=== PATIENT | female | born 1950 | race Caucasian/White ===

== ENCOUNTER 2020-05-05 14:39 | Outpatient (RCR) | payer MEDICARE, SELFPAY | END 2020-08-03 23:59 | disposition home or self-care (01) | LOC: ANHLAB 14:39 | PROVIDERS: PCP Family Medicine; Visit Provider Nurse Practitioner | DX: Z46.1 Encounter for fitting and adjustment of hearing aid (principal) | CPT/HCPCS: 99199 ==

== ENCOUNTER 2020-05-31 15:54 | Emergency (ER) | payer MEDICARE, SELFPAY ==
--- NOTE | ~2020-05-31 | XR_ITS ---
EXAMINATION: XR foot LT min 3V, XR ankle LT min 3V EXAM DATE: 05/31/2020 19:46 INDICATION: Initial encounter following injury, with pain of the left foot, ankle. TECHNIQUE: Left foot dorsoplantar, lateral and oblique projections obtained and reviewed. Left ankle frontal, lateral and oblique projections obtained and reviewed. There is no prior study for compari son. FINDINGS: Left metatarsal bones unremarkable. The left ankle mortise appears intact. Some periar ticular demineralization best appreciated at the 1st metatarsophalangeal joint, could be rheumatoid a rthritis. There is bunion and hallux valgus. There are no acute fractures or dislocations identified. There is no subcutaneous gas. The soft tissue is unremarkable. There are no radiopaque foreign b odies. IMPRESSION: 1. Left foot, ankle exam without acute osseous findings. 2. Chronic left foot findings. 3. Possible rheumatoid arthritis. Reviewed, dictated and finalized at location A. IMPRESSION: 1. Left foot, ankle exam without acute osseous findings. 2. Chronic left foot findings. 3. Possible rheumatoid arthritis.
--- NOTE | ~2020-05-31 | XR_ITS ---
EXAMINATION: XR knee LT min 4V EXAM DATE: 05/31/2020 19:46 INDICATION: Initial encounter following injury, with pain of the left knee. TECHNIQUE: Left knee frontal, crosstable lateral, orthogonal oblique projections for interpretation. There is no prior study for comparison. FINDINGS: There is intact left knee arthroplasty. There are no acute fractures or dislocations ident ified. There is no subcutaneous gas. There is small joint effusion. There are no radiopaque forei gn bodies. IMPRESSION: 1. XR knee LT min 4V exam without acute osseous findings. 2. Intact arthroplasty. 3. Small joint effusion. Reviewed, dictated and finalized at location A.
[2020-05-31 17:40] VITALS: BP 128/44; PULSE 86; RESP 17; TEMP 36.8; O2SAT 96
[2020-05-31] MEDS: ONDANSETRON HCL ODT 4 MG TABLET PO (19:44)
[2020-05-31] MEDS: HYDROcodone/acetaminophen (*CRX) 5-325 MG TABLET 1 TAB PO (19:44)
--- NOTE | 2020-05-31 20:12 | ED.LOWEXIN ---
HPI - Extremity Injury (Lower) General Chief Complaint: Extremity Injury, Lower Stated Complaint: L FOOT/ANKLE INJURY Time Seen by Provider: 05/31/20 19:06 Source: patient Mode of arrival: ambulatory Limitations: no limitations History of Present Illness HPI Narrative: This patient is 69 year old female who presents for evaluation left ankle and left foot pain s/p fall. Her states that patient was getting up when she fell . He states she twisted her left ankle and she fell onto her left knee. He states initially she was fine and she progressively developed swelling to her left ankle and throbbing pain. He states she did not hit her head and she had no LOC. She has not taken anything for her pain. Related Data Home Medications Medication Instructions Recorded Confirmed escitalopram oxalate 20 mg tablet 10 mg PO DAILY 08/05/19 insulin glargine 100 unit/mL (3 40 unit SUB-Q DAILY 08/05/19 mL) subcutaneous pen metformin 1,000 mg tablet 1,000 mg PO BID 08/05/19 metoprolol tartrate 25 mg tablet 25 mg PO BID tablet 08/05/19 pravastatin 20 mg tablet 20 mg PO DAILY 08/05/19 rivaroxaban 20 mg tablet 20 mg PO DAILY 08/05/19 Allergies Allergy/AdvReac Type Severity Reaction Status Date / Time No Known Drug Allergies Allergy Unknown Verified 10/03/17 10:46 Review of Systems Review of Systems: All systems reviewed & are unremarkable except as noted in HPI and below PMFSH Past Medical History Medical History (Updated 06/01/20 @ 00:00 by Background Daemon) Chronic pain of left knee Essential (primary) hypertension PAF (paroxysmal atrial fibrillation) Type 2 diabetes mellitus with diabetic polyneuropathy, with long-term current use of insulin Surgical History Surgical History (Updated 05/31/20 @ 20:22 by Jennifer Blake MD) S/P knee replacement Family History Family History (Updated 10/04/15 @ 09:50 by DOCTOR UNKNOWN) Sibling Carcinoma of colon Patient's brother is Mother Family history of lung cancer Patient's mother is Father Family history of chronic obstructive pulmonary disease Patient's father is Social History Social History Smoking status: Former smoker Smoking end date: 08/18/13 Alcohol intake: never Gender identity (if verbalized by the patient): Female Exam Const: General: no acute distress and alert Orientation/consciousness: patient oriented x3 HENMT: Head: normocephalic and atraumatic Face and sinus: face symmetric Mouth: Yes Normal oral and palatal mucosa present, Yes lip normal, Yes oropharynx normal and Yes moist mucous membranes Throat: posterior oropharynx normal, tonsils normal and uvula midline Eyes: EOM: EOMs intact bilaterally Chest: Chest palpation & inspection: normal inspection of the chest Resp: Effort & Inspection: normal respiratory effort and no retractions Auscultation: clear to auscultation bilaterally Cardio: Rate: regular rate Rhythm: regular rhythm Heart sounds: no murmurs GI: GI Palp: Yes Soft to palpation, No Tenderness to palpation present (GI), No Guarding due to palpation present (GI) and No Rigid due to palpation Skin: General skin exam: normal color Rashes: no rashes Neuro: General: patient oriented x3 and moves all extremities Extrem: Other: left ankle with mild bilateral malleolus swelling, TTP left dorsum foot, Psych: Mental Status: mental status grossly normal Course Reevaluation(s) Reevaluation #1: I have discussed with patient and her that no fractures were found on xray. Date: 05/31/20 Time: 20:23 Vital Signs Vital signs: Vital Signs Temperature 98.3 F 05/31/20 17:40 Pulse Rate 86 05/31/20 17:40 Respiratory Rate 17 05/31/20 17:40 Blood Pressure 128/44 L 05/31/20 17:40 Pulse Oximetry 96 05/31/20 17:40 Temperature 97.8 F 05/31/20 20:55 Pulse Rate 75 05/31/20 20:55 Respiratory Rate 16 05/18
[2020-05-31 20:55] VITALS: BP 119/41; PULSE 75; RESP 16; TEMP 36.6; O2SAT 95
== END 2020-05-31 20:57 | disposition home or self-care (01) ==
PROVIDERS: Emergency Provider General Practice; PCP Family Medicine
DX: S93.402A Sprain of unspecified ligament of left ankle, initial encounter (principal); I10 Essential (primary) hypertension; I48.91 Unspecified atrial fibrillation; E11.9 Type 2 diabetes mellitus without complications; Z79.4 Long term (current) use of insulin; Z79.01 Long term (current) use of anticoagulants; Z96.659 Presence of unspecified artificial knee joint; Z87.891 Personal history of nicotine dependence; W18.30XA Fall on same level, unspecified, initial encounter; X50.9XXA Other and unspecified overexertion or strenuous movements or postures, initial encounter
CPT/HCPCS: 73564; 73610; 73630; 99284; A9270

== ENCOUNTER 2020-06-29 18:29 | Inpatient (IN) | payer MEDICARE, SELFPAY ==
[2020-06-29] VITALS (27 sets, daily range): BP systolic 105–161; BP diastolic 45–103; PULSE 70–72; RESP 16–18; TEMP 36.4; O2SAT 88–99
--- NOTE | ~2020-06-29 | CT_ITS ---
EXAMINATION: CT brain wo con DATE: 07/03/2020 15:46 INDICATION: Alteration in mental status TECHNIQUE: Computed tomography (CT) of the head was performed without intravenous contrast. Sagittal and coronal reconstructions were performed. The mA was adjusted according to patient size. Iterative reconstruction technique was employed. The dose-length product was 1059.33 mGy-cm. COMPARISON: head CT dated 04/04/2019 FINDINGS: No acute intracranial hemorrhage, acute infarction or mass/mass effect. Again seen is a small old lac unar infarct at the right thalamus. Stable appearance of symmetric prominence of the sulci and subara chnoid spaces overlying the convexities consistent with mild to moderate age-appropriate diffuse cere bral volume loss. Mild scattered periventricular and subcortical predominant white matter hypoattenu ation consistent with chronic small vessel ischemic disease. Very small bilateral mastoid effusions with change of prior right mastoidectomy. Persistent complete opacification of the right sphenoid sin us with central calcification consistent with likely chronic fungal sinusitis. The orbits and mastoid air cells are normal. Intracranial calcified cerebral atherosclerosis is noted. IMPRESSION: 1. 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 No acute intracranial process. 2. Age-related changes including mild/moderate diffuse on loss and mild scattered white matter hypoat tenuation consistent with chronic small vessel ischemic disease. 2. Chronic right sphenoid sinusitis. Reviewed, dictated and finalized at [facility]. NG DIRECTOR IMPRESSION: 1. 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 No acute intracranial process. 2. Age-related changes including mild/moderate diffuse on loss and mild scatter ed white matter hypoattenuation consistent with chronic small vessel ischemic d isease. 2. Chronic right sphenoid sinusitis.
--- NOTE | ~2020-06-29 | US_ITS ---
EXAMINATION: US paracentesis abd w/image DATE: 07/01/2020 14:40 INDICATION: Ascites. TECHNIQUE: The procedure and its risks and benefits were discussed with the patient. Potential risks discussed included bleeding and infection. The skin was prepared and draped in sterile fashion. 1% li docaine was used for local anesthesia. Under ultrasound guidance, a 5 Fr catheter with trochar was ad vanced into the ascites in the left lower quadrant. Fluid was aspirated into vacuum bottles. The cath eter was removed, and a dressing was applied. There were no immediate complications. FINDINGS: Ultrasound images demonstrate ascites and the catheter within the fluid. IMPRESSION: 1. Successful ultrasound-guided paracentesis yielding 5000 mL of cloudy, juan manuel-colored fluid. Reviewed, dictated and finalized at location A. PER OPERATOR IMPRESSION: 1. Successful ultrasound-guided paracentesis yielding 5000 mL of cloudy, juan manuel- colored fluid.
--- NOTE | ~2020-06-29 | US_ITS ---
EXAMINATION: US paracentesis abd w/image DATE: 07/04/2020 11:59 INDICATION: Ascites. TECHNIQUE: The skin was prepped and draped in sterile fashion. 1% lidocaine was used for local anesth esia. Under ultrasound guidance, a 5 Fr catheter with trochar was advanced into the ascites in the le ft lower quadrant. Fluid was aspirated. The catheter was removed, and a dressing was applied. There w ere no immediate complications. FINDINGS: Ultrasound images demonstrate ascites and the catheter within the fluid. IMPRESSION: 1. Successful ultrasound-guided paracentesis yielding 3100 mL of red fluid. Reviewed, dictated and finalized at location A. DIATED FUEL HANDLER
--- NOTE | ~2020-06-29 | US_ITS ---
EXAMINATION: US venous doppler LE EXAM DATE: 07/05/2020 09:36 INDICATION: Right leg swelling. TECHNIQUE: Multiple grayscale, color flow and Doppler images of the lower extremity deep venous syste ms bilaterally were obtained and reviewed. There is no prior study for comparison. FINDINGS: Right side: The right common femoral, femoral and profunda veins demonstrate normal color flow, respi ratory variation, augmentation and compressibility. Compressibility, color flow confirmed within the right popliteal, posterior tibial, peroneal, and greater saphenous veins. Left side: The left common femoral, femoral and profunda veins demonstrate normal color flow, respira tory variation, augmentation and compressibility. Compressibility, color flow confirmed within the l eft popliteal, posterior tibial, peroneal, and greater saphenous veins. IMPRESSION: 1. No lower extremity deep venous thrombosis bilaterally. Reviewed, dictated and finalized at location A. T PULLER
--- NOTE | ~2020-06-29 | CT_ITS ---
EXAMINATION: CT abdomen pelvis w con DATE: 06/29/2020 20:17 INDICATION: Abdominal pain TECHNIQUE: Computed tomography (CT) of the abdomen and pelvis was performed with 100 cc Omnipaque 350 intravenous contrast. Automated exposure control and iterative reconstruction technique were employe d. Exam dose: 1303.28 mGy-cm total exam DLP. COMPARISON: 06/24/2017 CT abdomen pelvis FINDINGS: The lung bases are clear. Cardiomegaly. No pericardial or pleural effusion. Small sliding hiatal hernia. Prominent surface nodularity and diminished size of the liver consistent with cirrhosis. Stable approximately 1.9 cm lower right hepatic cyst. There is splenomegaly. Otherwise no hepatic space-occupying mass lesion is evident. No splenic mass lesion. There is pancreatic atrophy. No pancreatic mass lesion or calcification or ductal dilatation. No bile duct dilatation. Normal morphology of the adrenal glands. 6.5 mm mid right renal cyst. The kidneys are otherwise unremarkable. No urinary tract calculus or hyd roureteronephrosis. The urinary bladder is unremarkable. There is extensive calcification of the abdominal aorta as well as calcifications at the origins of t he celiac artery. No intraperitoneal or retroperitoneal or pelvic mass lesion or adenopathy. Diverticulosis of the colon; no CT evidence of diverticulitis. No bowel obstruction, bowel wall thick ening, pneumatosis or intraperitoneal free air. There is prominent ascites, new since 06/24/2017. There is soft tissue stranding within the subcutaneo us tissues of the abdominal and pelvic soto, likely due to edema/anasarca.. Approximately 5 cm multilocular cyst is suggested in the right adnexal area. There are bilateral old healed rib fractures. IMPRESSION: Cirrhosis, splenomegaly, prominent ascites Hepatic cyst 6.5 mm right renal cyst Diverticulosis of the colon Suggestion of a 5 cm multilocular right adnexal cyst Reviewed, dictated and finalized at [facility]. Reviewed, dictated and finalized at location A. LITION CRANE OPERATOR
--- NOTE | ~2020-06-29 | XR_ITS ---
EXAMINATION: XR chest 2V EXAM DATE: 07/03/2020 15:53 INDICATION: Hypoxia, HX OF HTN, PAF. TECHNIQUE: Frontal and lateral projections of the chest obtained and reviewed. Comparison is made to prior examination from 07/13/2018. FINDINGS: Diffuse prominence abnormal reticulation, could be edema and/or pulmonary fibrosis. No con fluent consolidation, pneumothorax or pleural effusion suspected. There is aortic arteriosclerosis. T he cardiomediastinal silhouette is prominent but magnified on this AP technique. Left shoulder replac ement, new compared to prior study. IMPRESSION: 1. Prominent but indistinct reticulation, could be edema and/or fibrosis. Reviewed, dictated and finalized at location A. ALK ADMINISTRATOR
[2020-06-29 19:08] LABS: Basophils Percent Auto 0.4 % (0.2-1.2); Eosinophils Absolute Auto 0.1 K/mm3 (0-0.3); Eosinophils Percent Auto 1.2 % (0-4.4); Hematocrit 30.1 % (37.0-47.0); Hemoglobin 8.8 g/dL (12.0-15.0); Immature Granulocyte Absolute 0.02 K/mm3 (0.00-0.031); Immature Granulocyte Percent A 0.4 % (0-0.5); Lymphocytes Absolute Auto 0.88 K/mm3 (0.9-3.2); Lymphocytes Percent Auto 17.4 % (18.3-44.2); Mean Corpuscular HGB Conc 29.2 g/dl (32-36); Mean Corpuscular Hemoglobin 23.8 pg (26-34); Mean Corpuscular Volume 81.4 fl (80-100); Mean Platelet Volume 10.8 fl (7.4-10.4); Monocytes Absolute Auto 0.3 K/mm3 (0.1-0.6); Monocytes Percent Auto 5.1 % (2.6-8.5); Neutrophils Absolute Auto 3.8 K/mm3 (1.3-6.7); Neutrophils Percent Auto 75.5 % (45.5-73.1); Platelet Count Result 123 k/mm3 (150-375); Red Cell Distribution Width 17.2 % (11.5-14.5); White Blood Count 5.1 K/mm3 (4.5-10.0)
--- NOTE | 2020-06-29 19:19 | PC.NURSE ---
PT REPORT TO MIRZA STEINER AT THIS TIME.
[2020-06-29 19:24] LABS: Alanine Aminotransferase 15 U/L (4-35); Albumin Level 3.2 g/dL (3.5-5.1); Alkaline Phosphatase 82 U/L (38-126); Anion Gap 6 mmol/L (8-16); Aspartate Amino Transferase 48 U/L (14-36); Bilirubin,Total 1.1 mg/dL (0.2-1.3); Blood Urea Nitrogen 11 mg/dL (7-17); Calcium 8.1 mg/dL (8.4-10.2); Carbon Dioxide 28 mmol/L (22-30); Chloride 100 mmol/L (98-107); Estimated CRCL calculation 73 ml/min; Estimated Glomerular Filt Rate > 60; Glucose 217 mg/dL (65-105); Lipase 22 U/L (23-300); Potassium 4.2 mmol/L (3.4-5.0); Sodium 134 mmol/L (137-145)
[2020-06-29 19:28] LABS: Hypochromasia 1+ (NORMAL); Ovalocytes 1+ (NORMAL); Platelet Estimate Decreased (Adequate)
--- NOTE | 2020-06-29 20:06 | ED.ABDPAIN ---
HPI - Abdominal Pain General Chief Complaint: Abdominal Pain Stated Complaint: abd bloating/firm abd x 3 days, pain, nausea Source: patient Mode of arrival: ambulatory Limitations: no limitations History of Present Illness HPI narrative: Patient 69-year-old female complaining of increasing abdominal distention accompanied by mild abdominal discomfort diffuse, started weeks ago but worse the past 3 to 4 days. Denies any nausea vomiting diarrhea. Denies any fever or chills. Denies any chest pain or shortness of breath. Related Data Home Medications Medication Instructions Recorded Confirmed escitalopram oxalate 20 mg tablet 10 mg PO DAILY 08/05/19 insulin glargine 100 unit/mL (3 40 unit SUB-Q DAILY 08/05/19 mL) subcutaneous pen metformin 1,000 mg tablet 1,000 mg PO BID 08/05/19 metoprolol tartrate 25 mg tablet 25 mg PO BID tablet 08/05/19 pravastatin 20 mg tablet 20 mg PO DAILY 08/05/19 rivaroxaban 20 mg tablet 20 mg PO DAILY 08/05/19 Allergies Allergy/AdvReac Type Severity Reaction Status Date / Time No Known Drug Allergies Allergy Unknown Verified 10/03/17 10:46 Review of Systems Review of Systems: All systems reviewed & are unremarkable except as noted in HPI and below Constitutional: Constitutional: Denies body ache(s), Denies chills, Denies excessive sweating, Denies fatigue, Denies fever(s), Denies headache(s), Denies lethargy, Denies malaise, Denies weakness and Denies weight loss Eyes: Eyes: Denies blurry vision, Denies change in vision and Denies loss of vision ENT: Denies dizziness, Denies ear discharge, Denies headache(s), Denies lip swelling, Denies epistaxis, Denies nasal congestion, Denies neck pain, Denies throat swelling and Denies tongue swelling Cardiovascular: Cardiovascular: Denies chest pain, Denies chest pain at rest, Denies chest pain with activity, Denies diaphoresis, Denies rapid heart rate, Denies edema, Denies irregular heart rhythm, Denies lightheadedness, Denies palpitations, Denies dyspnea and Denies dyspnea on exertion Respiratory: Respiratory: Denies chest congestion, Denies cough, Denies hemoptysis, Denies dyspnea and Denies dyspnea on exertion Gastrointestinal: Gastrointestinal: Denies melena, Denies hematochezia, Denies diarrhea, Denies nausea, Denies vomiting and Denies hematemesis Musculoskeletal: Musculoskeletal: Denies abnormal gait, Denies deformity, Denies joint swelling, Denies limited range of motion, Denies neck pain and Denies numbness Neurologic: Denies Abnormal speech present, Denies abnormal gait, Denies confusion, Denies dizziness, Denies headache(s), Denies focal weakness, Denies loss of vision, Denies numbness, Denies Other visual disturbances, Denies Sensory deficit (Neuro) and Denies weakness Psychiatric: Psychiatric: Denies confusion, Denies depression, Denies auditory hallucinations, Denies homicidal ideation and Denies suicidal ideation Endocrine: Endocrine: Denies cold intolerance, Denies excessive sweating, Denies fatigue, Denies heat intolerance and Denies palpitations Hematologic/Lymphatic: Hematologic/Lymphatic: Denies easy bleeding and Denies easy bruising Allergic/Immunologic: Allergic/Immunologic: Denies lip swelling, Denies throat swelling and Denies tongue swelling PMFSH Past Medical History Medical History (Updated 06/29/20 @ 21:24 by Tushar Dockery MD) Chronic pain of left knee Essential (primary) hypertension PAF (paroxysmal atrial fibrillation) Type 2 diabetes mellitus with diabetic polyneuropathy, with long-term current use of insulin Surgical History Surgical History (Updated 05/31/20 @ 20:22 by Jennifer Blake MD) S/P knee replacement Family History Family History (Updated 10/04/15 @ 09:50 by DOCTOR UNKNOWN) Sibling Carcinoma of colon Patient's brother is Mother Family history of lung cancer Patient's mother is Father Family history of chronic obstructive pulmo
[2020-06-29 20:07] LABS: Lipase 20 U/L (23-300)
[2020-06-29] MEDS: FUROSEMIDE INJ 40 MG/4 ML VIAL IV PUSH (20:29)
[2020-06-29] MEDS: ONDANSETRON INJ 4 MG/2 ML VIAL IV PUSH (21:25)
--- NOTE | 2020-06-29 21:25 | PM.IMHP ---
H&P: HPI History of Present Illness Date/Time: 06/29/20 21:25 Chief complaint: Increased abdominal girth. Narrative: Taryn Estevez is a 69 year old female with PMHx significant for Hepatic Cirrhosis, DARA unclear if using CPAP, A. fib paroxysmal, HTN, T2DM, Tobacco use. Patient presented to ED due to increased abdominal girth for roughly 2 weeks, patient has been in her usual state of health prior to this. No fevers, no rigors, no chills, no n/v has diffuse abdominal pain, no diarrhea, no hematemesis or hematochezia, patient tends to be tangential when asked questions, but states that she has been doing just fine prior to the last 2 weeks. No sob, no pnd, no orthopnea, no leg swelling. Denies any other complains. Preliminary work up is essentially non revealing. Review of Systems Review of Systems: Narrative: Patient presented to ED due to increased abdominal girth. Constitutional: Comments: no fevers, no rigors, no chills. Eyes: Comments: no vision changes. ENT: Comments: no ear ache, no nasal congestion or discharge, no throat pain. Cardiovascular: Comments: no chest pain, no pnd, no orthopnea. Respiratory: Comments: no cough, no sputum production, no sob. Gastrointestinal: Gastrointestinal: Reports abdominal pain Comments: Increased abdominal girth. Musculoskeletal: Comments: no joint swelling, no joint pain. Integumentary/Breasts: Comments: no rashes. Neurologic: Comments: no sensormotor deficit. Hematologic/Lymphatic: Comments: No LAP PMFSH Past Medical History Medical History (Updated 06/29/20 @ 21:24 by Tushra Dockery MD) Chronic pain of left knee Essential (primary) hypertension PAF (paroxysmal atrial fibrillation) Type 2 diabetes mellitus with diabetic polyneuropathy, with long-term current use of insulin Surgical History Surgical History (Updated 05/31/20 @ 20:22 by Jennifer Blake MD) S/P knee replacement Family History Family History (Updated 10/04/15 @ 09:50 by DOCTOR UNKNOWN) Sibling Carcinoma of colon Patient's brother is Mother Family history of lung cancer Patient's mother is Father Family history of chronic obstructive pulmonary disease Patient's father is Social History Social History Years smoked: 25 Smoking status: Current some day smoker Tobacco type: cigarettes Smoking end date: 08/18/13 Alcohol intake: never Gender identity (if verbalized by the patient): Female Spiritual care concerns: No Meds Home Medications and Allergies Home Medications Medication Instructions Recorded Confirmed Type escitalopram oxalate 20 mg tablet 10 mg PO DAILY 08/05/19 06/30/20 History insulin glargine 100 unit/mL (3 40 unit SUB-Q DAILY 08/05/19 06/30/20 History mL) subcutaneous pen metformin 1,000 mg tablet 1,000 mg PO BID 08/05/19 06/30/20 History metoprolol tartrate 25 mg tablet 25 mg PO BID tablet 08/05/19 06/30/20 History pravastatin 20 mg tablet 20 mg PO DAILY 08/05/19 06/30/20 History rivaroxaban 20 mg tablet 20 mg PO DAILY 08/05/19 06/30/20 History Allergies Allergy/AdvReac Type Severity Reaction Status Date / Time No Known Drug Allergies Allergy Unknown Verified 10/03/17 10:46 Vital Signs Vital Signs - 24 hr 06/29/20 18:40 Temperature 97.5 F L Pulse Rate 72 Respiratory Rate 16 Blood Pressure 118/45 L Pulse Oximetry 97 Exam Narrative: Exam Narrative: Lying in bed, comfortable. Const: General: cooperative, alert, awake, Physically active, well groomed and other (Bitemporal muscle wasting.) Nutritional Appearance: well nourished and other Orientation/consciousness: patient oriented x3 Limitations: no limitations HENMT: Head: normal to inspection and normocephalic Ears: hearing grossly normal bilaterally General nose exam: Normal external nose present Face and sinus: normal facial exam Eyes: General: appearance normal, both eyes and all related structures Eye
[2020-06-29 21:41] LABS: Add Urine Microscopic? YES; Appearance Urine Clear (Clear); Bilirubin Urine Negative (Negative); Blood Urine Negative (Negative); Color Urine Yellow (Yellow); Glucose Urine UA 1+ mg/dL (Negative); Ketones Urine Negative (Negative); Leukocyte Esterase Ur Negative LEU/UL (Negative); Mucus Urine Heavy /lpf; Nitrate Urine Negative (Negative); Protein Urine Negative (Negative); Specific Grav Ur 1.021 (1.001-1.035); Squamous Epithelial Cell Urine Many /hpf (Few); WBC Urine 0-3 /hpf
[2020-06-29 22:04] LABS: Partial Thromboplastin Time 34.5 SECONDS (22.3-36.8)
[2020-06-30] VITALS (11 sets, daily range): BP systolic 104–134; BP diastolic 42–83; PULSE 57–83; RESP 16–22; TEMP 35.9–36.9; O2SAT 92–99; BMI 36.1
[2020-06-30 01:12] LABS: Anion Gap 4 mmol/L (8-16); Blood Urea Nitrogen 11 mg/dL (7-17); Calcium 7.9 mg/dL (8.4-10.2); Carbon Dioxide 32 mmol/L (22-30); Chloride 98 mmol/L (98-107); Estimated CRCL calculation 73 ml/min; Estimated Glomerular Filt Rate > 60; Glucose 125 mg/dL (65-105); Potassium 3.6 mmol/L (3.4-5.0); Sodium 134 mmol/L (137-145)
[2020-06-30] MEDS: ALBUMIN HUMAN 25% 25 GM/100 ML 200 ML IVPB ×5 (01:36→21:04)
--- NOTE | 2020-06-30 02:56 | PC.NURSE ---
06/30/20 at 0010--received per stretcher from emergency room. patient is awake and alert, no acute distress noted. TDialRNC
[2020-06-30 06:32] LABS: Basophils Percent Auto 0.6 % (0.2-1.2); Eosinophils Absolute Auto 0.1 K/mm3 (0-0.3); Eosinophils Percent Auto 2.1 % (0-4.4); Hematocrit 22.5 % (37.0-47.0); Immature Granulocyte Absolute 0.02 K/mm3 (0.00-0.031); Immature Granulocyte Percent A 0.6 % (0-0.5); Lymphocytes Absolute Auto 0.92 K/mm3 (0.9-3.2); Lymphocytes Percent Auto 27.3 % (18.3-44.2); Mean Corpuscular HGB Conc 29.8 g/dl (32-36); Mean Corpuscular Hemoglobin 23.5 pg (26-34); Mean Corpuscular Volume 78.9 fl (80-100); Mean Platelet Volume 10.1 fl (7.4-10.4); Monocytes Absolute Auto 0.2 K/mm3 (0.1-0.6); Monocytes Percent Auto 5.3 % (2.6-8.5); Neutrophils Absolute Auto 2.2 K/mm3 (1.3-6.7); Neutrophils Percent Auto 64.1 % (45.5-73.1); Platelet Count Result 72 k/mm3 (150-375); Red Blood Count 2.85 M/mm3 (4.2-5.4); Red Cell Distribution Width 17.2 % (11.5-14.5); White Blood Count 3.4 K/mm3 (4.5-10.0)
[2020-06-30 06:36] LABS: Hemoglobin 6.7 g/dL (12.0-15.0)
[2020-06-30 06:47] LABS: INR 1.6; Prothrombin Time 19.5 Seconds (11.1-14.7)
[2020-06-30 06:52] LABS: Hypochromasia 2+ (NORMAL); Ovalocytes 2+ (NORMAL); Polychromasia 2+ (NORMAL)
[2020-06-30 06:53] LABS: Helmet Cells 1+ (NORMAL); Platelet Estimate Decreased (Adequate); Tear Drop Cells 1+ (NORMAL)
[2020-06-30 08:26] LABS: Glucose Point of Care 93 (65-105)
[2020-06-30] MEDS: PRAVASTATIN SODIUM 20 MG TABLET PO (08:28)
[2020-06-30] MEDS: ONDANSETRON INJ 4 MG/2 ML VIAL IV PUSH (08:33)
[2020-06-30 10:05] LABS: Iron 14 ug/dL (37-170)
[2020-06-30 10:15] LABS: Percent Iron Saturation 4 % (20-50)
[2020-06-30 10:48] LABS: Folic Acid 11.4 ng/mL (2.76->20)
[2020-06-30] MEDS: ESCITALOPRAM OXALATE 10 MG TABLET PO (11:08)
[2020-06-30] MEDS: METOPROLOL TARTRATE 25 MG TABLET PO ×2 (11:08→20:56)
--- NOTE | 2020-06-30 11:20 | PM.IMPN ---
Progress Note: A&P Assessment and Plan (1) Cirrhosis of liver with ascites: Code(s): K74.60 - Unspecified cirrhosis of liver; R18.8 - Other ascites Status: Acute Assessment and Plan: Presented with abdominal bloating and pain. CT a/p showed cirrhosis with prominent ascites. This appears to be a new diagnosis for her. INR is 1.6. Platelets low. Total bili wnl. AST mildly elevated. Gastroenterology has been consulted recommendations are appreciated. Ultrasound-guided paracentesis was scheduled, however patient had been taking Xarelto, so unable to be performed. Xarelto has been held and will plan to proceed with paracentesis when clinically appropriate per GI recommendations continue albumin infusions at this time Monitor CMP (2) Pancytopenia: Code(s): D61.818 - Other pancytopenia Status: Acute Assessment and Plan: May be secondary to liver disease. H&H critically low this morning with Hgb 6.7. Transfuse 1 unit pRBC Check H&H 1 hour following transfusion and monitor q6h Monitor CBC with diff daily Check iron panel, B12, and folate Hold xarelto. (3) Type 2 diabetes mellitus with diabetic polyneuropathy, with long-term current use of insulin: Code(s): E11.42 - Type 2 diabetes mellitus with diabetic polyneuropathy; Z79.4 - retirement (current) use of insulin Status: Acute Assessment and Plan: Last recorded A1c is from 2018. Blood sugar stable today. Last reading was 93. Accu-Cheks ACHS, SSI, hypoglycemic protocol metformin is on hold at this time diabetic diet check updated A1c (4) PAF (paroxysmal atrial fibrillation): Code(s): I48.0 - Paroxysmal atrial fibrillation Status: Acute Assessment and Plan: Rate controlled. She is on long-term anticoagulation with Xarelto. Hold Xarelto continue metoprolol (5) Essential (primary) hypertension: Code(s): I10 - Essential (primary) hypertension Status: Acute Assessment and Plan: BP evaluated today and is stable at 127/48. Continue metoprolol (6) DARA on CPAP: Code(s): G47.33 - Obstructive sleep apnea (adult) (pediatric); Z99.89 - Dependence on other enabling machines and devices Status: Acute Assessment and Plan: Continue CPAP at night time. (7) Urinary retention: Code(s): R33.9 - Retention of urine, unspecified Status: Acute Assessment and Plan: Patient reports that she has had problems with urinary retention. No prior information noted in chart. she is unable to tell me further details about the duration of this or when she last urinated. Bladder scan. Initiate [place] if she is having acute urinary retention monitor I&O closely Subjective Date/time seen: 06/30/20 11:20 Interval history: date of service: 06/30/2020 Taryn Estevez is a 69-year-old female with a history of paroxysmal atrial fibrillation, hypertension, and type 2 diabetes mellitus who is seen in follow-up for cirrhosis of liver with ascites. She reports 9/10 diffuse abdominal pain at this time. She reports that she has been having issues with constipation and urinary retention. she is unable to tell me when her last bowel movement was. She also notes that she has had early satiety. She could not eat much breakfast this morning because she felt full. She denies nausea or vomiting. She denies any episodes of bleeding including melena, hematochezia, or hematuria. She denies shortness of breath, dizziness, lightheadedness, palpitations. no chest pain. No fevers or chills. Review of Systems Review of Systems: All systems reviewed & are unremarkable except as noted in HPI and below Exam Narrative: Exam Narrative: Ms. Estevez is a well-nourished 69-year-old female who is lying semi-recumbent in bed. She appears comfortable and is in NARD. Neuro: awake, alert and oriented x4, speech clear, no focal neuro deficits noted HE
[2020-06-30 13:19] LABS: Glucose Point of Care 120 (65-105)
[2020-06-30 15:38] LABS: Hematocrit 24.2 % (37.0-47.0); Hemoglobin 7.3 g/dL (12.0-15.0)
[2020-06-30] MEDS: polyethylene glycoL 3350 17 GM POWD.PACK PO (15:53)
--- NOTE | 2020-06-30 16:52 | WPDGICN ---
Assessment and Plan Assessment and plan (1) Cirrhosis of liver with ascites: Code(s): K74.60 - Unspecified cirrhosis of liver; R18.8 - Other ascites Status: Acute Assessment and Plan: based on records cryptogenic but I did not find formal work up, we can order blood work to rule out most common conditions she needs paracentesis to rule out SBP, now getting albumin in preparation for paracentesis but renal function is normal MELD score only 7 (2) Pancytopenia: Code(s): D61.818 - Other pancytopenia Status: Acute Assessment and Plan: from cirrhosis, continue to monitor (3) Type 2 diabetes mellitus with diabetic polyneuropathy, with long-term current use of insulin: Code(s): E11.42 - Type 2 diabetes mellitus with diabetic polyneuropathy; Z79.4 - half-way (current) use of insulin Status: Acute (4) PAF (paroxysmal atrial fibrillation): Code(s): I48.0 - Paroxysmal atrial fibrillation Status: Acute Assessment and Plan: holding xarelto in setting of anemia (5) Anemia: Code(s): D64.9 - Anemia, unspecified Status: Acute Assessment and Plan: ~ 7 today, will continue to monitor, no melena at some point will need egd to check if varices, PHG, etc (6) Cryptogenic cirrhosis: Code(s): K74.69 - Other cirrhosis of liver Status: Acute (7) DARA on CPAP: Code(s): G47.33 - Obstructive sleep apnea (adult) (pediatric); Z99.89 - Dependence on other enabling machines and devices Status: Acute GI Consult Note Consult date/time: 06/30/20 16:52 Reason for consult: cirrhosis, ascites, N/V HPI: Taryn Estevez is a 69 year old female with history of cirrhosis at least since 2014 based on records (she is not the best historian) when found by CT scan and also thrombocytopenia (evaluated by hematology because of the same in 2017), Afib on xarelto, DARA, HTN and DM. She says that drinks 6-8 beers mostly in weekends. She had a colonoscopy 2010 that showed possible colitis. She came here with nausea and vomiting last few days, denies melena or blood in stools. Also noted increase abdominal girth last 2 weeks, does not remember havint paracentesis. CT scan showed cirrhosis, splenomegaly, prominent ascites, diverticulosis of the colon. Blood work also consistent with cirrhosis. Review of Systems Constitutional: Constitutional: Reports fatigue Eyes: Eyes: Reports no additional eye complaints ENT: Reports system reviewed and no additional complaints, except as documented Cardiovascular: Cardiovascular: Denies chest pain Respiratory: Respiratory: Denies cough Gastrointestinal: Gastrointestinal: Reports abdominal pain and Reports nausea Genitourinary: Genitourinary: Denies hematuria Musculoskeletal: Musculoskeletal: Denies neck pain Neurologic: Denies headache(s) Psychiatric: Psychiatric: Denies confusion [facility] Past Medical History Medical History (Updated 06/30/20 @ 11:45 by Nette Flores PA-C) Chronic pain of left knee Essential (primary) hypertension PAF (paroxysmal atrial fibrillation) Type 2 diabetes mellitus with diabetic polyneuropathy, with long-term current use of insulin Surgical History Surgical History (Updated 05/31/20 @ 20:22 by Jennifer Blake MD) S/P knee replacement Family History Family History Sibling Carcinoma of colon Patient's brother is Mother Family history of lung cancer Patient's mother is Father Family history of chronic obstructive pulmonary disease Patient's father is Social History Social History Years smoked: 25 Smoking status: Current some day smoker Tobacco type: cigarettes Smoking end date: 08/18/13 Alcohol intake: never Gender identity (if verbalized by the patient): Female Spiritual care concerns: No Meds Home Medications and Allergies Home Med
[2020-06-30 17:22] LABS: Glucose Point of Care 93 (65-105)
[2020-06-30] MEDS: DOCUSATE SODIUM 100 MG CAPSULE PO (20:55)
[2020-06-30 22:27] LABS: Glucose Point of Care 124 (65-105)
[2020-06-30] MEDS: INSULIN GLARGINE (*BKC) 100 UNITS/ML 40 UNITS SUB-Q (22:29)
[2020-07-01] VITALS (9 sets, daily range): BP systolic 92–130; BP diastolic 49–72; PULSE 57–74; RESP 16–20; TEMP 36.3–37.1; O2SAT 85–96
[2020-07-01] MEDS: ALBUMIN HUMAN 25% 25 GM/100 ML 200 ML IVPB ×4 (00:08→16:32)
[2020-07-01 05:58] LABS: INR 1.9; Prothrombin Time 22.7 Seconds (11.1-14.7)
[2020-07-01 06:13] LABS: Hemoglobin A1C 4.9 % (<5.7)
[2020-07-01] MEDS: GLUCOSE ORAL GEL 15 GM OF GLUCSE IN 37.5 GM TUBE PO ×2 (06:22→06:37)
[2020-07-01 06:49] LABS: Hematocrit 24.5 % (37.0-47.0); Hemoglobin 7.4 g/dL (12.0-15.0); Mean Corpuscular HGB Conc 30.2 g/dl (32-36); Mean Corpuscular Hemoglobin 24.7 pg (26-34); Mean Corpuscular Volume 81.9 fl (80-100); Mean Platelet Volume 11.5 fl (7.4-10.4); Platelet Count Result 69 k/mm3 (150-375); Red Blood Count 2.99 M/mm3 (4.2-5.4); Red Cell Distribution Width 17.2 % (11.5-14.5); White Blood Count 3.2 K/mm3 (4.5-10.0)
[2020-07-01 07:03] LABS: Glucose Point of Care 42 (65-105)
[2020-07-01 07:03] LABS: Glucose Point of Care 108 (65-105)
[2020-07-01 07:03] LABS: Glucose Point of Care 46 (65-105)
--- NOTE | 2020-07-01 07:03 | PC.NURSE ---
Lab called with abnormal glucose and potassium. Tech is coming to redraw. FSBS 42mg/dl. 15 grams of glucose gel given po at 0622. Pt lethargic, but warm and dry. FSBS rechecked 46mg/dl. Jello and apple juice po. Pt more awake and alert. FSBS now 108mg/dl. repair miller Emily made aware.
[2020-07-01 07:04] LABS: Alanine Aminotransferase 8 U/L (4-35); Albumin Level 4.6 g/dL (3.5-5.1); Alkaline Phosphatase 42 U/L (38-126); Anion Gap 13 mmol/L (8-16); Aspartate Amino Transferase 25 U/L (14-36); Bilirubin,Total 2.5 mg/dL (0.2-1.3); Blood Urea Nitrogen 11 mg/dL (7-17); Calcium 8.8 mg/dL (8.4-10.2); Carbon Dioxide 30 mmol/L (22-30); Chloride 97 mmol/L (98-107); Estimated CRCL calculation 69 ml/min; Estimated Glomerular Filt Rate > 60; Glucose 110 mg/dL (65-105); Potassium 3.5 mmol/L (3.4-5.0); Sodium 140 mmol/L (137-145)
[2020-07-01 07:15] LABS: Hepatitis B Surface Antigen Negative (Negative)
[2020-07-01 07:20] LABS: HAV RESULT Negative (Negative); Hepatitis B Core IgM Result Negative (Negative)
[2020-07-01 07:32] LABS: Hepatitis C Virus Antibody Negative (Negative)
[2020-07-01] MEDS: METOPROLOL TARTRATE 25 MG TABLET PO ×2 (07:58→23:02)
[2020-07-01] MEDS: PRAVASTATIN SODIUM 20 MG TABLET PO (07:58)
[2020-07-01] MEDS: DOCUSATE SODIUM 100 MG CAPSULE PO ×2 (07:59→23:02)
[2020-07-01] MEDS: polyethylene glycoL 3350 17 GM POWD.PACK PO (07:59)
[2020-07-01] MEDS: ESCITALOPRAM OXALATE 10 MG TABLET PO (07:59)
--- NOTE | 2020-07-01 09:48 | WPDGIPROGNO ---
Progress Note: A&P Assessment and Plan (1) Cirrhosis of liver with ascites: Code(s): K74.60 - Unspecified cirrhosis of liver; R18.8 - Other ascites Status: Acute Assessment and Plan: pending paracentesis because louis has been on hold, also will give vitamin K for next 3 days (INR 1.9), we need to rule out SBP. Ok to discontinue albumin tomorrow after paracentesis, she has normal renal function. also blood work ordered to check for chronic liver conditions (in the past labeled as cryptogenic cirrhosis) (2) Acute on chronic anemia: Code(s): D64.9 - Anemia, unspecified Status: Acute Assessment and Plan: monitor hb, no report of GIB at some point we can go EGD to check for EV, PHG, etc (3) Coagulopathy: Code(s): D68.9 - Coagulation defect, unspecified Status: Acute Assessment and Plan: from liver cirrhosis, blood thinner on hold (4) PAF (paroxysmal atrial fibrillation): Code(s): I48.0 - Paroxysmal atrial fibrillation Status: Acute (5) DARA on CPAP: Code(s): G47.33 - Obstructive sleep apnea (adult) (pediatric); Z99.89 - Dependence on other enabling machines and devices Status: Acute (6) Type 2 diabetes mellitus with diabetic polyneuropathy, with long-term current use of insulin: Code(s): E11.42 - Type 2 diabetes mellitus with diabetic polyneuropathy; 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 No report of GIB per tire setter of Systems Review of Systems: All systems reviewed & are unremarkable except as noted in HPI and below Exam Const: General: comfortable and no acute distress Other: looks chronically ill HENMT: General nose exam: Normal nares present Eyes: General: appearance normal, both eyes and all related structures Neck: Neck: no JVD Resp: Effort & Inspection: normal respiratory effort Auscultation: clear to auscultation bilaterally Cardio: Rate: regular rate GI: GI Palp: No Tenderness to palpation present (GI) and No Guarding due to palpation present (GI) Percussion: Yes Fluid wave present Auscultation: normal bowel sounds Skin: General skin exam: pallor Neuro: Speech: normal speech Motor exam (neuro): Normal motor muscle tone present throughout Psych: Affect: normal affect Objective Data Vital Signs Vital Signs: Vital Signs - 24 hr 06/30/20 11:04 06/30/20 11:08 06/30/20 11:19 Temperature 97.1 F L 97.8 F Pulse Rate 67 66 68 Respiratory Rate 16 16 Blood Pressure 104/42 L 111/47 L Pulse Oximetry 94 93 06/30/20 12:20 06/30/20 13:00 06/30/20 16:00 Temperature 98.4 F 97.4 F L 97.6 F Pulse Rate 57 L 67 83 Respiratory Rate 16 16 18 Blood Pressure 109/42 L 127/52 L 134/83 Pulse Oximetry 92 94 98 06/30/20 20:00 06/30/20 20:56 07/01/20 00:00 Temperature 97.8 F 98.6 F Pulse Rate 59 L 72 61 Respiratory Rate 20 20 Blood Pressure 108/43 L 107/50 L Pulse Oximetry 93 92 07/01/20 06:00 07/01/20 07:58 07/01/20 08:00 Temperature 97.8 F 97.9 F Pulse Rate 64 62 67 Respiratory Rate 16 18 Blood Pressure 104/51 L 102/64 Pulse Oximetry 91 85 L Intake/Output Intake/Output: Intake & Output 06/28/20 06/29/20 06/30/20 07/01/20 23:59 23:59 23:59 23:59 Intake Total 3015 550 Balance 3015 550 Meds/Results Medications: Active Medications Generic Name Dose Route Start Last Admin Trade Name Freq PRN Reason Stop Dose Admin Al Hydrox/Mg Hydrox/Simethicone 30 ml 06/29/20 21:30 Mag Hydrox/Al Hydrox/Simeth 30 Ml Udc PO QID PRN Dyspepsia Dextrose 12.5 gm 06/30/20 09:03 Dextrose 50% 25 Gm/50 Ml Syringe IV PUSH PRN PRN Hypoglycemia Protocol Docusate Sodium 100 mg 06/30/20 21:00 07/01/20 07:59 Docusate Sodium 100 Mg Capsule PO 100 mg Q12HR ANYI Administration Escitalopram Oxalate 10 mg 06/30/20 09:00 07/01/20 0
[2020-07-01] MEDS: PHYTONADIONE 5 MG TABLET PO (11:09)
[2020-07-01 13:18] LABS: Glucose Point of Care 87 (65-105)
--- NOTE | 2020-07-01 14:08 | PM.IMPN ---
Progress Note: A&P Assessment and Plan (1) Cirrhosis of liver with ascites: Code(s): K74.60 - Unspecified cirrhosis of liver; R18.8 - Other ascites Status: Acute Assessment and Plan: Presented with abdominal bloating and pain. CT a/p showed cirrhosis with prominent ascites. This appears to be a new diagnosis for her. INR is 1.9. Platelets low. Total bili 2.5. AST mildly elevated. Gastroenterology has been consulted and recommendations are appreciated. Plan for ultrasound-guided paracentesis today with culture of ascitic fluid to evaluate for SBP. Xarelto has been held and she has been given Vitamin K. 3 doses Vitamin K ordered. continue albumin infusions at this time. Discontinue after paracentesis. Monitor CMP Workup pending per GI to evaluate for chronic liver conditions (2) Anemia: Code(s): D64.9 - Anemia, unspecified Status: Acute Assessment and Plan: H&H critically low on 06/30. She received 1 unit pRBC. H*H remains low but is stable. VSS. No signs of active bleeding. Iron stores are deficient. B12 and folate wnl. Monitor H&H closely. Transfuse as needed with Hgb threshold <7.0 Begin iron supplement (3) Pancytopenia: Code(s): D61.818 - Other pancytopenia Status: Acute Assessment and Plan: Secondary to liver disease. 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 Blood sugar stable today. Last reading was 110. Accu-Cheks ACHS, SSI, hypoglycemic protocol metformin is on hold at this time diabetic diet (5) PAF (paroxysmal atrial fibrillation): Code(s): I48.0 - Paroxysmal atrial fibrillation Status: Acute Assessment and Plan: Rate controlled. She is on long-term anticoagulation with Xarelto. Xarelto is on hold for paracentesis. continue metoprolol (6) Essential (primary) hypertension: Code(s): I10 - Essential (primary) hypertension Status: Acute Assessment and Plan: BP evaluated today and is stable at 102/64. Continue metoprolol (7) DARA on CPAP: Code(s): G47.33 - Obstructive sleep apnea (adult) (pediatric); Z99.89 - Dependence on other enabling machines and devices Status: Acute Assessment and Plan: Continue CPAP at night time. (8) Urinary retention: Code(s): R33.9 - Retention of urine, unspecified Status: Acute Assessment and Plan: Resolved. Patient reported difficulty urinating. No evidence of retention based on bladder scan. Patient is incontinent but is voiding. monitor I&O closely repeat bladder scan if not voiding appropriately Subjective Date/time seen: 07/01/20 14:08 Interval history: Date of service: 07/01/2020 Taryn Estevez is a 69-year-old female with a history of paroxysmal atrial fibrillation, hypertension, and type 2 diabetes mellitus who is seen in follow-up for cirrhosis of liver with ascites. She continues to complain of abdominal pain and fullness. She has a headache this morning. She denies SOB, cough, chest pain, palpitations, body aches, fever, or chills. Denies bleeding or bruising. Review of Systems Review of Systems: All systems reviewed & are unremarkable except as noted in HPI and below Exam Narrative: Exam Narrative: Ms. Estevez is a well-nourished 69-year-old female who is lying semi-recumbent in bed. She appears comfortable and is in NARD. HR 67, BP 102/64, RR 18, T 97.9?, 91% on room air Neuro: awake, alert and oriented x3 (unable to recall month or year), speech clear, no focal neuro deficits noted HEENMT: normocephalic, atraumatic, EOMI, sclerae anicteric, moist oral mucosa, tongue midline, nares patent Neck: supple
--- NOTE | 2020-07-01 14:50 | PC.NURSE ---
Patient arrived back to floor after procedure, 5 liters of fluid was pulled off her abdomen.
[2020-07-01 15:59] LABS: Hematocrit 24.2 % (37.0-47.0); Hemoglobin 7.1 g/dL (12.0-15.0)
[2020-07-01] MEDS: FERROUS GLUCONATE 324 MG TABLET PO (16:39)
[2020-07-01 18:13] LABS: Glucose Point of Care 95 (65-105)
--- NOTE | 2020-07-01 20:41 | PC.NURSE ---
Rounded on patient. She pulled her IV from her left arm. Blood all over her gown and the linens. Pt cleaned up and gown and linens changed. New arm band applied. Pt tolerated well.
[2020-07-01 22:28] LABS: Hematocrit 24.7 % (37.0-47.0); Hemoglobin 7.3 g/dL (12.0-15.0)
[2020-07-01 23:10] LABS: Glucose Point of Care 130 (65-105)
[2020-07-01] MEDS: INSULIN GLARGINE (*BKC) 100 UNITS/ML 40 UNITS SUB-Q (23:14)
[2020-07-02] VITALS (9 sets, daily range): BP systolic 96–105; BP diastolic 40–68; PULSE 56–64; RESP 18–22; TEMP 36.1–37.3; O2SAT 85–98
[2020-07-02 06:41] LABS: Basophils Percent Auto 0.4 % (0.2-1.2); Eosinophils Percent Auto 0.2 % (0-4.4); Hematocrit 23.7 % (37.0-47.0); Hemoglobin 7.1 g/dL (12.0-15.0); Immature Granulocyte Absolute 0.02 K/mm3 (0.00-0.031); Immature Granulocyte Percent A 0.4 % (0-0.5); Lymphocytes Absolute Auto 0.74 K/mm3 (0.9-3.2); Lymphocytes Percent Auto 13.1 % (18.3-44.2); Mean Corpuscular Hemoglobin 24.5 pg (26-34); Mean Corpuscular Volume 81.7 fl (80-100); Mean Platelet Volume 11.5 fl (7.4-10.4); Monocytes Absolute Auto 0.4 K/mm3 (0.1-0.6); Monocytes Percent Auto 6.4 % (2.6-8.5); Neutrophils Absolute Auto 4.5 K/mm3 (1.3-6.7); Neutrophils Percent Auto 79.5 % (45.5-73.1); Platelet Count Result 76 k/mm3 (150-375); Red Cell Distribution Width 17.6 % (11.5-14.5); White Blood Count 5.6 K/mm3 (4.5-10.0)
[2020-07-02 06:51] LABS: INR 1.9; Prothrombin Time 22.4 Seconds (11.1-14.7)
[2020-07-02 07:14] LABS: Alanine Aminotransferase 9 U/L (4-35); Albumin Level 4.2 g/dL (3.5-5.1); Alkaline Phosphatase 42 U/L (38-126); Anion Gap 11 mmol/L (8-16); Aspartate Amino Transferase 25 U/L (14-36); Bilirubin,Total 2.7 mg/dL (0.2-1.3); Blood Urea Nitrogen 17 mg/dL (7-17); Calcium 8.5 mg/dL (8.4-10.2); Carbon Dioxide 28 mmol/L (22-30); Chloride 99 mmol/L (98-107); Estimated CRCL calculation 31 ml/min; Estimated Glomerular Filt Rate 32; Glucose 122 mg/dL (65-105); Sodium 138 mmol/L (137-145)
[2020-07-02 08:11] LABS: Potassium 3.3 mmol/L (3.4-5.0)
[2020-07-02] MEDS: DOCUSATE SODIUM 100 MG CAPSULE PO ×2 (08:12→21:32)
[2020-07-02] MEDS: ESCITALOPRAM OXALATE 10 MG TABLET PO (08:12)
[2020-07-02] MEDS: PRAVASTATIN SODIUM 20 MG TABLET PO (08:13)
[2020-07-02] MEDS: polyethylene glycoL 3350 17 GM POWD.PACK PO (08:13)
[2020-07-02] MEDS: PHYTONADIONE 5 MG TABLET PO (08:13)
[2020-07-02 08:48] LABS: Glucose Point of Care 123 (65-105)
[2020-07-02] MEDS: FERROUS GLUCONATE 324 MG TABLET PO ×2 (09:44→17:52)
--- NOTE | 2020-07-02 12:08 | WPDGIPROGNO ---
Progress Note: A&P Assessment and Plan (1) Cirrhosis of liver with ascites: Code(s): K74.60 - Unspecified cirrhosis of liver; R18.8 - Other ascites Status: Acute Assessment and Plan: paracentesis yesterday, awaiting result of fluid analysis given mild CRISTY today will give more iv albumin to prevent HRS ideally will need diuretics after renal function better, also will advance diet to 2g NA with ensure blood work ordered to check for chronic liver conditions (in the past labeled as cryptogenic cirrhosis) (2) Acute on chronic anemia: Code(s): D64.9 - Anemia, unspecified Status: Acute Assessment and Plan: monitor hb, she received one unit prbc, no report of GIB at some point we can go EGD to check for EV, PHG, etc xarelto is on hold (3) Coagulopathy: Code(s): D68.9 - Coagulation defect, unspecified Status: Acute Assessment and Plan: from liver cirrhosis, blood thinner on hold and given vit K (4) PAF (paroxysmal atrial fibrillation): Code(s): I48.0 - Paroxysmal atrial fibrillation Status: Acute (5) DARA on CPAP: Code(s): G47.33 - Obstructive sleep apnea (adult) (pediatric); Z99.89 - Dependence on other enabling machines and devices Status: Acute (6) Type 2 diabetes mellitus with diabetic polyneuropathy, with long-term current use of insulin: Code(s): E11.42 - Type 2 diabetes mellitus with diabetic polyneuropathy; Z79.4 - 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 No report of GIB Review of Systems Review of Systems: All systems reviewed & are unremarkable except as noted in HPI and below Exam Const: General: comfortable and no acute distress Other: looks chronically ill HENMT: General nose exam: Normal nares present Eyes: General: appearance normal, both eyes and all related structures Neck: Neck: no JVD Resp: Effort & Inspection: normal respiratory effort Auscultation: clear to auscultation bilaterally Cardio: Rate: regular rate GI: Inspection: distended GI Palp: No Tenderness to palpation present (GI) and No Guarding due to palpation present (GI) Percussion: Yes Fluid wave present (improver after paracentesis) Auscultation: normal bowel sounds Skin: General skin exam: pallor Neuro: Speech: normal speech Motor exam (neuro): Normal motor muscle tone present throughout Psych: Affect: normal affect Objective Data Vital Signs Vital Signs: Vital Signs - 24 hr 07/01/20 12:10 07/01/20 14:00 07/01/20 18:00 Temperature 97.4 F L 98.6 F 97.9 F Pulse Rate 57 L 65 58 L Respiratory Rate 20 18 18 Blood Pressure 108/49 L 109/66 130/72 Pulse Oximetry 91 96 91 07/01/20 20:00 07/01/20 23:02 07/02/20 00:00 Temperature 98.8 F 99.2 F Pulse Rate 60 74 61 Respiratory Rate 20 22 H Blood Pressure 92/50 L 100/68 Pulse Oximetry 94 92 07/02/20 03:53 07/02/20 08:00 07/02/20 09:04 Temperature 98.3 F 97.2 F L Pulse Rate 56 L 58 L Respiratory Rate 20 20 Blood Pressure 98/46 L 98/50 L Pulse Oximetry 91 90 85 L 07/02/20 09:06 Temperature Pulse Rate Respiratory Rate Blood Pressure Pulse Oximetry 90 Intake/Output Intake/Output: Intake & Output 06/29/20 06/30/20 07/01/20 07/02/20 23:59 23:59 23:59 23:59 Intake Total 3015 1560 195 Output Total 5000 Balance 3015 -3440 195 Meds/Results Medications: Active Medications Generic Name Dose Route Start Last Admin Trade Name Freq PRN Reason Stop Dose Admin Al Hydrox/Mg Hydrox/Simethicone 30 ml 06/29/20 21:30 Mag Hydrox/Al Hydrox/Simeth 30 Ml Udc PO QID PRN Dyspepsia Dextrose 12.5 gm 06/30/20 09:03 Dextrose 50% 25 Gm/50 Ml Syringe IV PUSH PRN PRN Hypoglycemia Protocol Docusate Sodium 100 mg 06/30/20 21:00 07/02/20 08:12 Docusate Sodium 100 Mg Capsule PO 100 mg
[2020-07-02 12:15] LABS: Hematocrit 24.3 % (37.0-47.0); Hemoglobin 7.2 g/dL (12.0-15.0)
--- NOTE | 2020-07-02 12:34 | P.PNIM_ITS ---
Progress Note: A&P Assessment and Plan (1) Cirrhosis of liver with ascites: Code(s): K74.60 - Unspecified cirrhosis of liver; R18.8 - Other ascites Status: Acute Assessment and Plan: Presented with abdominal bloating and pain. CT a/p showed cirrhosis with prominent ascites. INR is 1.9. Platelets low. Total bili 2.7. AST mildly elevated. She underwent paracentesis on 07/01 which yielded 5000 ml juan manuel fluid. * Gastroenterology has been consulted and recommendations are appreciated. * Continue to hold xarelto and continue with Vitamin K following paracentesis. * continue albumin infusions at this time * Monitor CMP * Workup pending per GI to evaluate for chronic liver conditions * Low sodium diet (2) Hepatic encephalopathy: Code(s): K72.90 - Hepatic failure, unspecified without coma Status: Acute Assessment and Plan: Patient is confused today. Ammonia is elevated at 32. She has not had a BM. * Administer lactulose enema. Repeat q2h until BM produced. * PO lactulose q6h (3) Anemia: Code(s): D64.9 - Anemia, unspecified Status: Acute Assessment and Plan: H&H critically low on 06/30. She received 1 unit pRBC. H&H remains low but is stable. VSS. No signs of active bleeding. Iron stores are deficient. B12 and folate wnl. * Monitor H&H closely. Transfuse as needed with Hgb threshold <7.0 * Continue iron supplement * IFOB is pending. Awaiting stool sample (4) Pancytopenia: Code(s): D61.818 - Other pancytopenia Status: Acute Assessment and Plan: Secondary to liver disease. White count has normalized. Platelets improving. 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 Blood sugar stable today. Last reading was 122. * Accu-Cheks ACHS, SSI, hypoglycemic protocol * metformin is on hold at this time * diabetic diet (6) PAF (paroxysmal atrial fibrillation): Code(s): I48.0 - Paroxysmal atrial fibrillation Status: Acute Assessment and Plan: Rate controlled. She is on long-term anticoagulation with Xarelto. * Xarelto is on hold following paracentesis. * continue metoprolol (7) Essential (primary) hypertension: Code(s): I10 - Essential (primary) hypertension Status: Acute Assessment and Plan: BP evaluated today and is stable at 102/64. * Continue metoprolol (8) DARA on CPAP: Code(s): G47.33 - Obstructive sleep apnea (adult) (pediatric); Z99.89 - Dependence on other enabling machines and devices Status: Acute Assessment and Plan: Continue CPAP at night time. (9) Urinary retention: Code(s): R33.9 - Retention of urine, unspecified Status: Acute Assessment and Plan: Resolved. Patient reported difficulty urinating. No evidence of retention based on bladder scan. Patient is incontinent but is voiding. * monitor I&O closely * repeat bladder scan if not voiding appropriately (10) Acute kidney failure: Code(s): N17.9 - Acute kidney failure, unspecified Status: Acute Assessment and Plan: Creatinine bumped to 1.6 today. Etiology unclear at this time. Possibly pre- renal secondary to volume changes. Urinary retention co
--- NOTE | 2020-07-02 12:34 | PM.IMPN ---
Progress Note: A&P Assessment and Plan (1) Cirrhosis of liver with ascites: Code(s): K74.60 - Unspecified cirrhosis of liver; R18.8 - Other ascites Status: Acute Assessment and Plan: Presented with abdominal bloating and pain. CT a/p showed cirrhosis with prominent ascites. INR is 1.9. Platelets low. Total bili 2.7. AST mildly elevated. She underwent paracentesis on 07/01 which yielded 5000 ml juan manuel fluid. Gastroenterology has been consulted and recommendations are appreciated. Continue to hold xarelto and continue with Vitamin K following paracentesis. continue albumin infusions at this time Monitor CMP Workup pending per GI to evaluate for chronic liver conditions Low sodium diet (2) Hepatic encephalopathy: Code(s): K72.90 - Hepatic failure, unspecified without coma Status: Acute Assessment and Plan: Patient is confused today. Ammonia is elevated at 32. She has not had a BM. Administer lactulose enema. Repeat q2h until BM produced. PO lactulose q6h (3) Anemia: Code(s): D64.9 - Anemia, unspecified Status: Acute Assessment and Plan: H&H critically low on 06/30. She received 1 unit pRBC. H&H remains low but is stable. VSS. No signs of active bleeding. Iron stores are deficient. B12 and folate wnl. Monitor H&H closely. Transfuse as needed with Hgb threshold <7.0 Continue iron supplement IFOB is pending. Awaiting stool sample (4) Pancytopenia: Code(s): D61.818 - Other pancytopenia Status: Acute Assessment and Plan: Secondary to liver disease. White count has normalized. Platelets improving. Monitor CBC with diff daily (5) Type 2 diabetes mellitus with diabetic polyneuropathy, with long-term current use of insulin: Code(s): E11.42 - Type 2 diabetes mellitus with diabetic polyneuropathy; Z79.4 - supervisor intermediates (current) use of insulin Status: Acute Assessment and Plan: A1c is 4.9. Blood sugar stable today. Last reading was 122. Accu-Cheks ACHS, SSI, hypoglycemic protocol metformin is on hold at this time diabetic diet (6) PAF (paroxysmal atrial fibrillation): Code(s): I48.0 - Paroxysmal atrial fibrillation Status: Acute Assessment and Plan: Rate controlled. She is on long-term anticoagulation with Xarelto. Xarelto is on hold following paracentesis. continue metoprolol (7) Essential (primary) hypertension: Code(s): I10 - Essential (primary) hypertension Status: Acute Assessment and Plan: BP evaluated today and is stable at 102/64. Continue metoprolol (8) DARA on CPAP: Code(s): G47.33 - Obstructive sleep apnea (adult) (pediatric); Z99.89 - Dependence on other enabling machines and devices Status: Acute Assessment and Plan: Continue CPAP at night time. (9) Urinary retention: Code(s): R33.9 - Retention of urine, unspecified Status: Acute Assessment and Plan: Resolved. Patient reported difficulty urinating. No evidence of retention based on bladder scan. Patient is incontinent but is voiding. monitor I&O closely repeat bladder scan if not voiding appropriately (10) Acute kidney failure: Code(s): N17.9 - Acute kidney failure, unspecified Status: Acute Assessment and Plan: Creatinine bumped to 1.6 today. Etiology unclear at this time. Possibly pre-renal secondary to volume changes. Urinary retention consider but less likely because, as noted above, this has been monitored with no signs of retention Begin gentle IV fluids Repeat bladder scan Consider renal US if no improvement. Subjective Date/time seen: 07/02/20 12:34 Interval history: Date of service: 07/02/2020 Taryn Estevez is a 69-year-old female with a history of paroxysmal atrial fibrillation, hypertension, and type 2 diabetes mellitus who is seen in follow-up for cirrhosis of liver with ascites.
[2020-07-02 13:00] LABS: Ammonia 32 umol/L (9-30)
[2020-07-02] MEDS: ALBUMIN HUMAN 25% 25 GM/100 ML 200 ML IVPB (13:45)
[2020-07-02] MEDS: SODIUM CHLORIDE 0.9% IV 1,000 ML 100 ML IV CONT (13:50)
[2020-07-02] MEDS: LACTULOSE ENEMA 200 GM/1,000 ML ENEMA RECTAL (14:15)
[2020-07-02] MEDS: POTASSIUM CHLORIDE 20 MEQ TABLET PO (15:27)
[2020-07-02 15:57] LABS: IFOB Positive Control Positive; Immunochemical Fecal Occult Bl Negative (N)
[2020-07-02 17:27] LABS: Glucose Point of Care 120 (65-105)
[2020-07-02 17:34] LABS: Glucose Point of Care 122 (65-105)
[2020-07-02] MEDS: LACTULOSE 20 GM/30 ML UDC 30 GM PO ×2 (17:52→21:30)
[2020-07-02] MEDS: INSULIN GLARGINE (*BKC) 100 UNITS/ML 40 UNITS SUB-Q (21:36)
[2020-07-02 21:41] LABS: Glucose Point of Care 129 (65-105)
[2020-07-03] VITALS (11 sets, daily range): BP systolic 99–118; BP diastolic 44–81; PULSE 62–100; RESP 16–20; TEMP 36.2–36.7; O2SAT 91–100
[2020-07-03] MEDS: SODIUM CHLORIDE 0.9% IV 1,000 ML 100 ML IV CONT ×2 (03:25→14:57)
[2020-07-03 06:53] LABS: Hematocrit 23.5 % (37.0-47.0); Immature Platelet Fraction Pct 5.1 % (0.9-11.2); Mean Corpuscular HGB Conc 29.4 g/dl (32-36); Mean Corpuscular Hemoglobin 24.3 pg (26-34); Mean Corpuscular Volume 82.7 fl (80-100); Mean Platelet Volume 11.6 fl (7.4-10.4); Platelet Count Result 64 k/mm3 (150-375); Red Blood Count 2.84 M/mm3 (4.2-5.4); Red Cell Distribution Width 17.9 % (11.5-14.5)
[2020-07-03 06:58] LABS: Hemoglobin 6.9 g/dL (12.0-15.0)
[2020-07-03 07:03] LABS: Alanine Aminotransferase 10 U/L (4-35); Albumin Level 3.9 g/dL (3.5-5.1); Alkaline Phosphatase 35 U/L (38-126); Anion Gap 11 mmol/L (8-16); Aspartate Amino Transferase 31 U/L (14-36); Bilirubin,Total 2.6 mg/dL (0.2-1.3); Blood Urea Nitrogen 23 mg/dL (7-17); Calcium 8.1 mg/dL (8.4-10.2); Carbon Dioxide 26 mmol/L (22-30); Chloride 101 mmol/L (98-107); Estimated CRCL calculation 41 ml/min; Estimated Glomerular Filt Rate 44; Glucose 71 mg/dL (65-105); Magnesium 1.8 mg/dL (1.6-2.3); Potassium 3.1 mmol/L (3.4-5.0); Sodium 138 mmol/L (137-145)
[2020-07-03] MEDS: LACTULOSE 20 GM/30 ML UDC 30 GM PO ×3 (07:29→16:52)
--- NOTE | 2020-07-03 07:45 | PC.NURSE ---
I called and spoke with Nette Flores and report critical lab values. Hgb 6.9 & Hct 23.5. No new orders received at this time.
[2020-07-03 08:09] LABS: Glucose Point of Care 73 (65-105)
[2020-07-03] MEDS: SODIUM CHLORIDE 0.9% IV 250 ML 30 ML IV CONT (09:25)
[2020-07-03] MEDS: POTASSIUM CHLORIDE 20 MEQ TABLET 40 MEQ PO (09:29)
[2020-07-03] MEDS: PRAVASTATIN SODIUM 20 MG TABLET PO (09:30)
[2020-07-03] MEDS: ESCITALOPRAM OXALATE 10 MG TABLET PO (09:30)
[2020-07-03] MEDS: DOCUSATE SODIUM 100 MG CAPSULE PO ×2 (09:30→21:05)
[2020-07-03] MEDS: FERROUS GLUCONATE 324 MG TABLET PO ×2 (09:30→16:52)
[2020-07-03] MEDS: PHYTONADIONE 5 MG TABLET PO (09:53)
--- NOTE | 2020-07-03 11:01 | P.PNIM_ITS ---
Progress Note: A&P Assessment and Plan (1) Cirrhosis of liver with ascites: Code(s): K74.60 - Unspecified cirrhosis of liver; R18.8 - Other ascites Status: Acute Assessment and Plan: Presented with abdominal bloating and pain. CT a/p showed cirrhosis with prominent ascites. INR is 1.9. Platelets low. Total bili 2.6. LFTs wnl. She underwent paracentesis on 07/01 which yielded 5000 ml juan manuel fluid. * Gastroenterology has been consulted and recommendations are appreciated. * Ascitic fluid cultures and pathology pending. * Continue to hold xarelto and continue with Vitamin K following paracentesis. * IV albumin discontinued on 07/02. * Monitor CMP * Workup pending per GI to evaluate for chronic liver conditions * Low sodium diet (2) Hepatic encephalopathy: Code(s): K72.90 - Hepatic failure, unspecified without coma Status: Acute Assessment and Plan: She became more confused on 07/02 and ammonia was noted to be elevated. She had not a had a BM for 3-4 days prior. She received lactulose enema with rapid induction of bowel movement. Her confusion has improved. She remains A&Ox2. Acute CVA remains on differential, but patient has no focal deficits and hepatic encephalopathy is more likely. * Continue PO lactulose q6h. * Repeat lactulose enema as needed if not having regular BM. * Obtain head CT to rule out stroke (3) Anemia: Code(s): D64.9 - Anemia, unspecified Status: Acute Assessment and Plan: She received 1 unit pRBC on 06/30 due to Hgb 6.7. She had minimal improvement in H&H following. Vital signs have been stable. There is no evidence of active bleeding. IFOB negative. Iron stores are deficient. B12 and folate wnl. Today, Hgb low at 6.9. * Transfuse 1 unit pRBC. Repeat H&H 1 hour following transfusion. * Monitor H&H closely. Transfuse as needed with Hgb threshold <7.0 * Continue iron supplement (4) Pancytopenia: Code(s): D61.818 - Other pancytopenia Status: Acute Assessment and Plan: Present upon admission. Secondary to liver disease. White count has normalized. 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 Blood sugars are well controlled. Blood sugar this morning was 73. * Accu-Cheks ACHS, SSI, hypoglycemic protocol * metformin is on hold at this time * diabetic diet (6) PAF (paroxysmal atrial fibrillation): Code(s): I48.0 - Paroxysmal atrial fibrillation Status: Acute Assessment and Plan: Rate controlled. She is on long-term anticoagulation with Xarelto. * Xarelto is on hold following paracentesis. * continue metoprolol (7) Essential (primary) hypertension: Code(s): I10 - Essential (primary) hypertension Status: Acute Assessment and Plan: Blood pressures have been soft in the 90s-110s systolic. * Metoprolol held yesterday but will be resumed today as patient requires this medication for rate control. * Monitor BP closely (8) DARA on CPAP: Code(s): G47.33 - Obstructive sleep apnea (adult) (pediatric); Z99.89 - Dependence on other enabling machines and devices Status: Acute Assessment and Plan: Continue CPAP at night time. (9) Urinary retention: Code(s): R33.9 -
--- NOTE | 2020-07-03 11:01 | PM.IMPN ---
Progress Note: A&P Assessment and Plan (1) Cirrhosis of liver with ascites: Code(s): K74.60 - Unspecified cirrhosis of liver; R18.8 - Other ascites Status: Acute Assessment and Plan: Presented with abdominal bloating and pain. CT a/p showed cirrhosis with prominent ascites. INR is 1.9. Platelets low. Total bili 2.6. LFTs wnl. She underwent paracentesis on 07/01 which yielded 5000 ml juan manuel fluid. Gastroenterology has been consulted and recommendations are appreciated. Ascitic fluid cultures and pathology pending. Continue to hold xarelto and continue with Vitamin K following paracentesis. IV albumin discontinued on 07/02. Monitor CMP Workup pending per GI to evaluate for chronic liver conditions Low sodium diet (2) Hepatic encephalopathy: Code(s): K72.90 - Hepatic failure, unspecified without coma Status: Acute Assessment and Plan: She became more confused on 07/02 and ammonia was noted to be elevated. She had not a had a BM for 3-4 days prior. She received lactulose enema with rapid induction of bowel movement. Her confusion has improved. She remains A&Ox2. Acute CVA remains on differential, but patient has no focal deficits and hepatic encephalopathy is more likely. Continue PO lactulose q6h. Repeat lactulose enema as needed if not having regular BM. Obtain head CT to rule out stroke (3) Anemia: Code(s): D64.9 - Anemia, unspecified Status: Acute Assessment and Plan: She received 1 unit pRBC on 06/30 due to Hgb 6.7. She had minimal improvement in H&H following. Vital signs have been stable. There is no evidence of active bleeding. IFOB negative. Iron stores are deficient. B12 and folate wnl. Today, Hgb low at 6.9. Transfuse 1 unit pRBC. Repeat H&H 1 hour following transfusion. Monitor H&H closely. Transfuse as needed with Hgb threshold <7.0 Continue iron supplement (4) Pancytopenia: Code(s): D61.818 - Other pancytopenia Status: Acute Assessment and Plan: Present upon admission. Secondary to liver disease. White count has normalized. Monitor CBC with diff daily (5) Type 2 diabetes mellitus with diabetic polyneuropathy, with long-term current use of insulin: Code(s): E11.42 - Type 2 diabetes mellitus with diabetic polyneuropathy; Z79.4 - FDC (current) use of insulin Status: Acute Assessment and Plan: A1c is 4.9. Blood sugars are well controlled. Blood sugar this morning was 73. Accu-Cheks ACHS, SSI, hypoglycemic protocol metformin is on hold at this time diabetic diet (6) PAF (paroxysmal atrial fibrillation): Code(s): I48.0 - Paroxysmal atrial fibrillation Status: Acute Assessment and Plan: Rate controlled. She is on long-term anticoagulation with Xarelto. Xarelto is on hold following paracentesis. continue metoprolol (7) Essential (primary) hypertension: Code(s): I10 - Essential (primary) hypertension Status: Acute Assessment and Plan: Blood pressures have been soft in the 90s-110s systolic. Metoprolol held yesterday but will be resumed today as patient requires this medication for rate control. Monitor BP closely (8) DARA on CPAP: Code(s): G47.33 - Obstructive sleep apnea (adult) (pediatric); Z99.89 - Dependence on other enabling machines and devices Status: Acute Assessment and Plan: Continue CPAP at night time. (9) Urinary retention: Code(s): R33.9 - Retention of urine, unspecified Status: Acute Assessment and Plan: Resolved. Patient reported difficulty urinating. No evidence of retention based on bladder scan. Patient is incontinent but is voiding. monitor I&O closely repeat bladder scan if not voiding appropriately. (10) Acute kidney failure: Code(s): N17.9 - Acute kidney failure, unspecified Status: Acute Assessment and Plan: Creatinine b
--- NOTE | 2020-07-03 12:05 | PCNFU ---
Nutrition Follow-Up Complete: Inadequate Oral Intake as related to abdominal distention as evidenced by poor po intake and weight loss reported. Goal: Meet estimated nutritional needs Progressing towards goal. We will continue current goal. Pt current nutrition is 2 gm Na . Nutrition recommendation: Agree Last recorded weight is 92.5 kg. Bowel Motility:+BM reported 07/03 Labs Reviewed:Cr 1.2,BUN 23,GFR 44,Hct 23.5, Hgb 6.9 Meds Noted:NS 250 ml at 30 ml/hr, Colace,Lexapro,Lantus Additional Notes: Patient nutrition follow up. Stomach remains distended, some confusion noted. Patient ate about 40% of full liquid tray for breakfast. Diet order has been advanced to a 2 gm Na diet. Ensure compact BID providing an additional 240 kcals and 9 gms protein. Monitoring: Will monitor every 3 days.
[2020-07-03 13:01] LABS: Glucose Point of Care 121 (65-105)
[2020-07-03 13:27] LABS: Hemoglobin 8.5 g/dL (12.0-15.0)
--- NOTE | 2020-07-03 14:11 | PCRCNOTE ---
HOME O2 EVALUATION COMPLETED. PT. WAS UNABLE TO AMBULATE AT THIS TIME BUT DID QUALIFY FOR 2LPM WITH ACTIVITY. PT. WANTED CARE MEDICAL DME CHOICE. TANK IN ROOM.
--- NOTE | 2020-07-03 15:06 | PC.NURSE ---
to ultrasound/xray
--- NOTE | 2020-07-03 16:00 | WPDGIPROGNO ---
Progress Note: A&P Assessment and Plan (1) Cirrhosis of liver with ascites: Code(s): K74.60 - Unspecified cirrhosis of liver; R18.8 - Other ascites Status: Acute Assessment and Plan: paracentesis was done and removed 5 L, ordered fluid for cell count but was not done, culture no growth so far, will order another paracentesis with cell count (she needs another anyway because still evidence of ascites) she received iv albumin after last paracentesis. ideally will need diuretics but awaiting on creatinine to improved then will need 2g NA diet with ensure blood work ordered to check for chronic liver conditions (in the past labeled as cryptogenic cirrhosis) (2) Acute on chronic anemia: Code(s): D64.9 - Anemia, unspecified Status: Acute Assessment and Plan: she had to received another blood transfusion will get EGD tomorrow to assess if pud, PHG or varices blood thinner is on hold (3) Coagulopathy: Code(s): D68.9 - Coagulation defect, unspecified Status: Acute Assessment and Plan: from liver cirrhosis, blood thinner on hold and given vit K (4) Hepatic encephalopathy: Code(s): K72.90 - Hepatic failure, unspecified without coma Status: Acute Assessment and Plan: she was started on lactulose and more alert, will add also xifaxan (5) PAF (paroxysmal atrial fibrillation): Code(s): I48.0 - Paroxysmal atrial fibrillation Status: Acute (6) DARA on CPAP: Code(s): G47.33 - Obstructive sleep apnea (adult) (pediatric); Z99.89 - Dependence on other enabling machines and devices Status: Acute (7) Acute kidney failure: Code(s): N17.9 - Acute kidney failure, unspecified Status: Acute Assessment and Plan: continue to monitor renal function (8) Type 2 diabetes mellitus with diabetic polyneuropathy, with long-term current use of insulin: Code(s): E11.42 - Type 2 diabetes mellitus with diabetic polyneuropathy; Z79.4 - 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 Review of Systems Review of Systems: All systems reviewed & are unremarkable except as noted in HPI and below Exam Const: General: comfortable and no acute distress Other: chronically ill appearing, obese HENMT: General nose exam: Normal nares present Eyes: General: appearance normal, both eyes and all related structures Neck: Neck: no JVD Resp: Auscultation: clear to auscultation bilaterally Cardio: Rate: regular rate Rhythm: regular rhythm GI: Inspection: non-distended GI Palp: Yes Soft to palpation Percussion: Yes Fluid wave present Auscultation: normal bowel sounds Skin: General skin exam: pallor Neuro: Speech: normal speech Other: awake and alert x2, sometimes gets confused, pleasant Extrem: General: normal to inspection Psych: Affect: normal affect Objective Data Vital Signs Vital Signs: Vital Signs - 24 hr 07/02/20 20:00 07/02/20 23:54 07/03/20 04:00 Temperature 98.1 F 98.5 F 98.1 F Pulse Rate 60 64 63 Respiratory Rate 20 20 20 Blood Pressure 100/40 L 105/40 L 103/50 L Pulse Oximetry 92 92 97 07/03/20 08:00 07/03/20 09:35 07/03/20 09:50 Temperature 97.5 F L 97.1 F L 97.2 F L Pulse Rate 62 64 62 Respiratory Rate 20 16 18 Blood Pressure 100/55 L 118/44 L 118/46 L Pulse Oximetry 98 98 100 07/03/20 10:50 07/03/20 11:50 07/03/20 12:20 Temperature 97.7 F 97.5 F L 97.8 F Pulse Rate 100 86 99 Respiratory Rate 18 20 18 Blood Pressure 99/81 L 115/57 L 99/51 L Pulse Oximetry 97 97 96 Intake/Output Intake/Output: Intake & Output 06/30/20 07/01/20 07/02/20 07/03/20 23:59 23:59 23:59 23:59 Intake Total 3015 7488 805 7573 Output Total 5000 Balance 3015 -3440 435 2600 Meds/Results Medications: Active Medications Generic Name Dose Route Start Last Admin Trade Name Freq PRN
[2020-07-03 17:26] LABS: Glucose Point of Care 76 (65-105)
[2020-07-03] MEDS: rifAXIMin 550 MG TABLET PO (21:05)
[2020-07-03 21:26] LABS: Glucose Point of Care 117 (65-105)
[2020-07-03] MEDS: METOPROLOL TARTRATE 25 MG TABLET PO (22:11)
[2020-07-03] MEDS: INSULIN GLARGINE (*BKC) 100 UNITS/ML 40 UNITS SUB-Q (22:12)
[2020-07-04] VITALS (13 sets, daily range): BP systolic 88–129; BP diastolic 39–90; PULSE 52–105; RESP 16–20; TEMP 36.1–36.8; O2SAT 91–99
[2020-07-04] MEDS: SODIUM CHLORIDE 0.9% IV 1,000 ML 100 ML IV CONT (01:41)
[2020-07-04 06:15] LABS: Basophils Percent Auto 0.4 % (0.2-1.2); Eosinophils Absolute Auto 0.1 K/mm3 (0-0.3); Eosinophils Percent Auto 2.1 % (0-4.4); Hematocrit 27.9 % (37.0-47.0); Hemoglobin 8.5 g/dL (12.0-15.0); Immature Granulocyte Absolute 0.02 K/mm3 (0.00-0.031); Immature Granulocyte Percent A 0.4 % (0-0.5); Lymphocytes Absolute Auto 0.89 K/mm3 (0.9-3.2); Lymphocytes Percent Auto 18.7 % (18.3-44.2); Mean Corpuscular HGB Conc 30.5 g/dl (32-36); Mean Corpuscular Hemoglobin 25.1 pg (26-34); Mean Corpuscular Volume 82.3 fl (80-100); Mean Platelet Volume 12.2 fl (7.4-10.4); Monocytes Absolute Auto 0.3 K/mm3 (0.1-0.6); Monocytes Percent Auto 5.9 % (2.6-8.5); Neutrophils Absolute Auto 3.4 K/mm3 (1.3-6.7); Neutrophils Percent Auto 72.5 % (45.5-73.1); Platelet Count Result 70 k/mm3 (150-375); Red Blood Count 3.39 M/mm3 (4.2-5.4); Red Cell Distribution Width 17.9 % (11.5-14.5); White Blood Count 4.8 K/mm3 (4.5-10.0)
[2020-07-04 06:29] LABS: Alanine Aminotransferase 8 U/L (4-35); Albumin Level 3.1 g/dL (3.5-5.1); Alkaline Phosphatase 39 U/L (38-126); Anion Gap 6 mmol/L (8-16); Aspartate Amino Transferase 26 U/L (14-36); Bilirubin,Total 2.6 mg/dL (0.2-1.3); Blood Urea Nitrogen 15 mg/dL (7-17); Calcium 7.8 mg/dL (8.4-10.2); Carbon Dioxide 28 mmol/L (22-30); Chloride 105 mmol/L (98-107); Estimated CRCL calculation 69 ml/min; Estimated Glomerular Filt Rate > 60; Glucose 62 mg/dL (65-105); Sodium 139 mmol/L (137-145)
[2020-07-04 06:57] LABS: INR 1.7; Prothrombin Time 20.5 Seconds (11.1-14.7)
[2020-07-04 07:43] LABS: Glucose Point of Care 62 (65-105)
[2020-07-04] MEDS: DEXTROSE 50% 25 GM/50 ML SYRINGE IV PUSH (07:54)
[2020-07-04 08:17] LABS: Glucose Point of Care 136 (65-105)
[2020-07-04] MEDS: POTASSIUM CHLORIDE 20 MEQ TABLET 40 MEQ PO (09:22)
[2020-07-04] MEDS: rifAXIMin 550 MG TABLET PO ×2 (09:23→21:08)
[2020-07-04] MEDS: METOPROLOL TARTRATE 25 MG TABLET PO ×2 (09:23→21:06)
[2020-07-04] MEDS: ESCITALOPRAM OXALATE 10 MG TABLET PO (09:24)
[2020-07-04] MEDS: PRAVASTATIN SODIUM 20 MG TABLET PO (09:24)
--- NOTE | 2020-07-04 11:20 | PC.NURSE ---
patient to ultrasound for paracentesis per stretcher
[2020-07-04] MEDS: LACTATED RINGERS 1,000 ML 150 ML IV CONT (12:02)
[2020-07-04 12:15] LABS: Glucose Point of Care 76 (65-105)
--- NOTE | 2020-07-04 12:40 | WPDANESEPPF ---
Anes - Initial Pre Proc Eval Procedure: Operation Date: 07/04/20 12:30 Proposed Procedures p Esophagogastroduodenoscopy - Milo Guzman MD Date/Time: 07/04/20 12:40 Surgeon: Jennifer Mehta PA-C Pre Op Diagnosis: Ascites, Live cirrhosis Patient Data Age: 69 Gender: F Height: 1.6 m Weight: 92.5 kg Last Vital Signs Temp 36.8 C 07/04/20 12:06 Pulse 57 L 07/04/20 12:06 Resp 16 07/04/20 12:06 BP 88/50 L 07/04/20 12:06 Pulse Ox 99 07/04/20 12:06 Allergies Allergy/AdvReac Type Severity Reaction Status Date / Time No Known Drug Allergies Allergy Unknown Verified 10/03/17 10:46 Home Medications Medication Instructions Recorded Confirmed Type escitalopram oxalate 20 mg tablet 10 mg PO DAILY 08/05/19 06/30/20 History insulin glargine 100 unit/mL (3 40 unit SUB-Q DAILY 08/05/19 06/30/20 History mL) subcutaneous pen metformin 1,000 mg tablet 1,000 mg PO BID 08/05/19 06/30/20 History metoprolol tartrate 25 mg tablet 25 mg PO BID tablet 08/05/19 06/30/20 History pravastatin 20 mg tablet 20 mg PO DAILY 08/05/19 06/30/20 History rivaroxaban 20 mg tablet 20 mg PO DAILY 08/05/19 06/30/20 History Laboratory Tests 07/03/20 07/03/20 07/03/20 12:17 13:20 16:51 WBC RBC Hgb 8.5 g/dL L g/dL (12.0-15.0) Hct 28.0 % L % (37.0-47.0) MCV MCH MCHC RDW Plt Count MPV Immature Gran % (Auto) Neut % (Auto) Lymph % (Auto) Carlton % (Auto) Eos % (Auto) Baso % (Auto) Lymph # (Auto) Carlton # (Auto) Eos # (Auto) Baso # (Auto) Abs Immat Gran (auto) Absolute Neuts (auto) Absolute Nucleated RBC Nucleated RBC % PT INR Sodium Potassium Chloride Carbon Dioxide Anion Gap BUN Creatinine Estim Creat Clear Calc Estimated GFR Glucose POC Capillary Glucose 121 mg/dl H mg/dl 76 mg/dl mg/dl (65-105) (65-105) Calcium Total Bilirubin AST ALT Alkaline Phosphatase Total Protein Albumin 07/03/20 07/04/20 07/04/20 20:59 05:22 05:22 WBC 4.8 K/mm3 K/mm3 (4.5-10.0) RBC 3.39 M/mm3 L M/mm3 (4.2-5.4) Hgb 8.5 g/dL L g/dL (12.0-15.0) Hct 27.9 % L % (37.0-47.0) MCV 82.3 fl fl (80-100) MCH 25.1 pg L pg (26-34) MCHC 30.5 g/dl L g/dl (32-36) RDW 17.9 % H % (11.5-14.5) Plt Count 70 k/mm3 L k/mm3 (150-375) MPV 12.2 fl H fl (7.4-10.4) Immature Gran % (Auto) 0.4 % % (0-0.5) Neut % (Auto) 72.5 % % (45.5-73.1) Lymph % (Auto) 18.7 % % (18.3-44.2) Carlton % (Auto) 5.9 % % (2.6-8.5) Eos % (Auto) 2.1 % % (0-4.4) Baso % (Auto) 0.4 % % (0.2-1.2) Lymph # (Auto) 0.89 K/mm3 L K/mm3 (0.9-3.2) Carlton # (Auto) 0.3 K/mm3 K/mm3 (0.1-0.6) Eos # (Auto) 0.1 K/mm3 K/mm3 (0-0.3) Baso # (Auto) 0.0 K/mm3 K/mm3 (0.0-0.1) Abs Immat Gran (auto) 0.02 K/mm3 K/mm3 (0.00-0.031) Absolute Neuts (auto) 3.4 K/mm3 K/mm3 (1.3-6.7) Absolute Nucleated RBC 0.0 K/mm3 K/mm3 (0.0-0.012) Nucleated RBC % 0.0 % % (0.0-0.2) PT 20.5 Seconds H Seconds (11.1-14.7) INR 1.7 Sodium Potassium Chloride Carbon Dioxide Anion Gap BUN Creatinine Estim Creat Clear Calc Estimated GFR Glucose POC Capillary Glucose 117 mg/dl H mg/dl
[2020-07-04 13:40] LABS: Glucose Point of Care 74 (65-105)
[2020-07-04 13:44] LABS: Appearance Peritoneal Fluid Cloudy (Clear); Color Peritoneal Fluid Red (Colorless); Lymphocytes Peritoneal Fluid 53 %; Macrophages Peritoneal Fluid 34 %; Mesothelial Cells Peritoneal Fluid 5 %; Neutrophils Peritoneal Fluid 8 % (0-25); Nucleated Cells Peritoneal Flu 844 /uL (0-500); Source Peritoneal Fluid Peritoneal Fluid
--- NOTE | 2020-07-04 14:18 | PC.NURSE ---
patient returned to floor from GI lab
[2020-07-04 14:46] LABS: Glucose Point of Care 65 (65-105)
[2020-07-04 15:35] LABS: Glucose Point of Care 82 (65-105)
--- NOTE | 2020-07-04 15:58 | PM.IMPN ---
Progress Note: A&P Assessment and Plan (1) Cirrhosis of liver with ascites: Code(s): K74.60 - Unspecified cirrhosis of liver; R18.8 - Other ascites Status: Acute Assessment and Plan: Presented with abdominal bloating and pain. CT abdomen/pelvis showed cirrhosis with prominent ascites. INR is 1.7. Platelets low. Total bili 2.6. LFTs are normal. Gastroenterology is on board and recommendations are greatly appreciated. She underwent paracentesis on 07/01 which yielded 5000 ml juan manuel fluid. Fluid cultures were obtained and showed no evidence of atypia malignancy. Cell counts were unfortunately not obtained from initial paracentesis. Aerobic culture shows no growth and anaerobic culture shows no growth to date. She underwent paracentesis again today (07/04) which yielded 3100 ml of red fluid with cell count showing 38,288 RBC, 844 nucleated cells, 8% neutrophils. Discussed with GI and increased RBC may be due to traumatic paracentesis. Monitor H&H closely. Will continue to hold xarelto. IV albumin discontinued on 07/02. Monitor CMP. Workup pending per GI to evaluate for chronic liver conditions. Low sodium diet (2) Peptic ulcer disease: Code(s): K27.9 - Peptic ulcer, site unspecified, unspecified as acute or chronic, without hemorrhage or perforation Status: Acute Assessment and Plan: EGD performed 07/[address] Guzman shows esophagitis, duodenitis, peptic ulcer disease, and gastritis. Appreciate GI input. Continue PPI BID. Avoid NSAIDs. Carafate was also added with meals per GI. Continue to monitor H&H closely. (3) Hepatic encephalopathy: Code(s): K72.90 - Hepatic failure, unspecified without coma Status: Acute Assessment and Plan: She became more confused on 07/02 and ammonia was noted to be elevated. She had not a had a BM for 3-4 days prior. She received lactulose enema with rapid induction of bowel movement. 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 Her confusion has improved. Appreciate GI input. Continue PO lactulose and rifaximin. (4) Anemia: Code(s): D64.9 - Anemia, unspecified Status: Acute Assessment and Plan: She received 1 unit pRBC on 06/30 due to Hgb 6.7. She had minimal improvement in H&H following. Vital signs have been stable. There is no evidence of active bleeding. IFOB negative. Iron stores are deficient. B12 and folate are normal. She received 1 unit pRBC 07/03. Hb is 8.5 and Hct 27.9 07/04. Monitor H&H closely. Transfuse as needed with Hgb threshold <7.0. Continue iron supplement (5) Pancytopenia: Code(s): D61.818 - Other pancytopenia Status: Acute Assessment and Plan: Present upon admission. Secondary to liver disease. White count has normalized. Monitor CBC with diff daily. 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 Blood sugars are well controlled. Hold metformin. Continue consistent-carb diet. Continue ACHS glucose monitoring, sliding scale insulin, and hypoglycemia protocol. (7) PAF (paroxysmal atrial fibrillation): Code(s): I48.0 - Paroxysmal atrial fibrillation Status: Acute Assessment and Plan: Rate controlled. She is on long-term anticoagulation with Xarelto. Continue metoprolol. Discussed with GI. Hold xarelto for now given EGD findings of moderate diffuse esophagitis, gastritis, and superficial ulcers, anemia requiring blood transfusion, and [id number] RBC on paracentesis. (8) Essential (primary) hypertension: Code(s): I10 - Essential (primary) hypertension Status: Acute Assessment and Plan: Blood pressure
[2020-07-04] MEDS: LACTULOSE 20 GM/30 ML UDC 30 GM PO ×2 (17:52)
[2020-07-04] MEDS: FERROUS GLUCONATE 324 MG TABLET PO (17:52)
[2020-07-04 18:16] LABS: Glucose Point of Care 142 (65-105)
[2020-07-04] MEDS: TRIAMCINOLONE ACET 0.1% OINT 15 GM TUBE 1 APPLIC TOPICAL (21:05)
[2020-07-04] MEDS: DOCUSATE SODIUM 100 MG CAPSULE PO (21:06)
[2020-07-04] MEDS: PANTOPRAZOLE 40 MG TABLET PO (21:07)
[2020-07-04] MEDS: INSULIN GLARGINE (*BKC) 100 UNITS/ML 40 UNITS SUB-Q (21:17)
[2020-07-04 21:19] LABS: Glucose Point of Care 135 (65-105)
[2020-07-05] VITALS (8 sets, daily range): BP systolic 102–117; BP diastolic 40–50; PULSE 46–85; RESP 14–18; TEMP 36–36.8; O2SAT 93–98
[2020-07-05 00:11] LABS: Mitochondrial (M2) Ab (IgG) <=20.0 U (<=20.0)
[2020-07-05] MEDS: LACTULOSE 20 GM/30 ML UDC 30 GM PO ×4 (01:23→23:11)
[2020-07-05 06:51] LABS: Basophils Percent Auto 0.6 % (0.2-1.2); Eosinophils Absolute Auto 0.1 K/mm3 (0-0.3); Eosinophils Percent Auto 2.6 % (0-4.4); Hematocrit 29.1 % (37.0-47.0); Hemoglobin 8.8 g/dL (12.0-15.0); Immature Granulocyte Absolute 0.03 K/mm3 (0.00-0.031); Immature Granulocyte Percent A 0.6 % (0-0.5); Immature Platelet Fraction Pct 6.4 % (0.9-11.2); Lymphocytes Percent Auto 18.9 % (18.3-44.2); Mean Corpuscular HGB Conc 30.2 g/dl (32-36); Mean Corpuscular Hemoglobin 25.6 pg (26-34); Mean Corpuscular Volume 84.6 fl (80-100); Mean Platelet Volume 11.4 fl (7.4-10.4); Monocytes Absolute Auto 0.3 K/mm3 (0.1-0.6); Monocytes Percent Auto 5.3 % (2.6-8.5); Neutrophils Absolute Auto 3.8 K/mm3 (1.3-6.7); Platelet Count Result 82 k/mm3 (150-375); Red Blood Count 3.44 M/mm3 (4.2-5.4); Red Cell Distribution Width 18.2 % (11.5-14.5); White Blood Count 5.3 K/mm3 (4.5-10.0)
[2020-07-05 07:01] LABS: Bilirubin Indirect 1.7 mg/dL (0-1.1)
[2020-07-05 07:03] LABS: Alanine Aminotransferase 9 U/L (4-35); Albumin Level 3.3 g/dL (3.5-5.1); Alkaline Phosphatase 45 U/L (38-126); Anion Gap 7 mmol/L (8-16); Aspartate Amino Transferase 27 U/L (14-36); Bilirubin,Total 2.1 mg/dL (0.2-1.3); Blood Urea Nitrogen 14 mg/dL (7-17); Calcium 7.9 mg/dL (8.4-10.2); Carbon Dioxide 27 mmol/L (22-30); Chloride 106 mmol/L (98-107); Estimated CRCL calculation 79 ml/min; Estimated Glomerular Filt Rate > 60; Glucose 93 mg/dL (65-105); Potassium 3.5 mmol/L (3.4-5.0); Sodium 140 mmol/L (137-145)
[2020-07-05 07:12] LABS: INR 1.6; Prothrombin Time 19.5 Seconds (11.1-14.7)
[2020-07-05 08:37] LABS: Glucose Point of Care 92 (65-105)
[2020-07-05] MEDS: DOCUSATE SODIUM 100 MG CAPSULE PO ×2 (08:40→21:01)
[2020-07-05] MEDS: METOPROLOL TARTRATE 25 MG TABLET PO (08:40)
[2020-07-05] MEDS: ESCITALOPRAM OXALATE 10 MG TABLET PO (08:40)
[2020-07-05] MEDS: rifAXIMin 550 MG TABLET PO ×2 (08:41→21:02)
[2020-07-05] MEDS: PRAVASTATIN SODIUM 20 MG TABLET PO (08:41)
[2020-07-05] MEDS: FERROUS GLUCONATE 324 MG TABLET PO ×2 (08:41→16:55)
[2020-07-05] MEDS: PANTOPRAZOLE 40 MG TABLET PO ×2 (08:41→21:01)
[2020-07-05] MEDS: polyethylene glycoL 3350 17 GM POWD.PACK PO (08:41)
[2020-07-05] MEDS: TRIAMCINOLONE ACET 0.1% OINT 15 GM TUBE 1 APPLIC TOPICAL ×2 (08:42→21:03)
--- NOTE | 2020-07-05 10:08 | WPDANESPN ---
Anes - Prog Note Post-Op Date/Time: 07/05/20 10:08 Cardiovascular status: normal (recieved PRBC's, transfuse to maintain hgb 8) Respiratory status: normal Airway patency: baseline Mental status: baseline Post-Op hydration status: normal Vital Signs: Last Vital Signs Temp 36.0 C L 07/05/20 04:00 Pulse 60 07/05/20 08:40 Resp 18 07/05/20 04:00 BP 110/50 L 07/05/20 04:00 Pulse Ox 96 07/05/20 04:00 Pain Score (VAS): 0 I/O: Intake & Output 07/04/20 07/05/20 07/05/20 23:59 07:59 15:59 Intake Total 720 300 Balance 720 300 Laboratory Tests 07/05/20 05:43 07/05/20 05:43 07/01/20 07/04/20 07/04/20 05:22 11:41 11:41 WBC RBC Hgb Hct MCV MCH MCHC RDW Plt Count MPV Immature Gran % (Auto) Neut % (Auto) Lymph % (Auto) O'Brien % (Auto) Eos % (Auto) Baso % (Auto) Lymph # (Auto) O'Brien # (Auto) Eos # (Auto) Baso # (Auto) Abs Immat Gran (auto) Absolute Neuts (auto) Absolute Nucleated RBC Nucleated RBC % % Immature Plt Fraction PT INR Sodium Potassium Chloride Carbon Dioxide Anion Gap BUN Creatinine Estim Creat Clear Calc Estimated GFR Glucose POC Capillary Glucose Calcium Total Bilirubin Direct Bilirubin Indirect Bilirubin AST ALT Alkaline Phosphatase Total Protein Albumin Peritoneal Source Peritoneal fluid Peritoneal Color Red Peritoneal Appearance Cloudy A Peritoneal RBC 63763 Periton Nuc Cells 844 H Periton Neutrophils 8 Periton Lymphocytes 53 Periton Mesothelial 5 Periton Macrophages 34 Peritoneal Albumin Pending Mitochondria M2 IgG Ab <=20.0 07/04/20 07/04/20 07/04/20 12:13 13:38 14:41 WBC RBC Hgb Hct MCV MCH MCHC RDW Plt Count MPV Immature Gran % (Auto) Neut % (Auto) Lymph % (Auto) O'Brien % (Auto) Eos % (Auto) Baso % (Auto) Lymph # (Auto) O'Brien # (Auto) Eos # (Auto) Baso # (Auto) Abs Immat Gran (auto) Absolute Neuts (auto) Absolute Nucleated RBC Nucleated RBC % % Immature Plt Fraction PT INR Sodium Potassium Chloride Carbon Dioxide Anion Gap BUN Creatinine Estim Creat Clear Calc Estimated GFR Glucose POC Capillary Glucose 76 74 65 Calcium Total Bilirubin Direct Bilirubin Indirect Bilirubin AST ALT Alkaline Phosphatase Total Protein Albumin Peritoneal Source Peritoneal Color Peritoneal Appearance Peritoneal RBC Periton Nuc Cells Periton Neutrophils Periton Lymphocytes Periton Mesothelial Periton Macrophages Peritoneal Albumin Mitochondria M2 IgG Ab 07/04/20 07/04/20 07/04/20 15:14 17:47 21:13 WBC RBC Hgb Hct MCV MCH MCHC RDW Plt Count MPV Immature Gran % (Auto) Neut % (Auto) Lymph % (Auto) O'Brien % (Auto) Eos % (Auto) Baso % (Auto) Lymph # (Auto) O'Brien # (Auto) Eos # (Auto) Baso # (Auto) Abs Immat Gran (auto) Absolute Neuts (auto) Absolute Nucleated RBC Nucleated RBC % % Immature Plt Fraction PT INR Sodium Potassium Chloride Carbon Dioxide Anion Gap BUN Creatinine Estim Creat Clear Calc Estimated GFR Glucose POC Capillary Glucose 82 142 H 135 H Calcium Total Bilirubin Direct Bilirubin Indirect Bilirubin AST ALT Alkaline Phosphatase Total Protein Albumin Peritoneal Source Peritoneal Color Peritoneal Appearance Peritoneal RBC Periton Nuc Cells Periton Neutrophils Periton Lymphocytes Periton Mesothelial Periton Macrophages Peritoneal Albumin Mitochondria M2 IgG Ab 07/05/20 07/05/20 07/05/20 05:43 05:43 05:43 WBC 5.3 RBC 3.44 L Hgb 8.8 L Hct 29.1 L MCV 84.6
[2020-07-05] MEDS: LACTULOSE ENEMA 200 GM/1,000 ML ENEMA RECTAL (12:18)
[2020-07-05 12:54] LABS: Glucose Point of Care 98 (65-105)
--- NOTE | 2020-07-05 16:43 | WPDGIPROGNO ---
Progress Note: A&P Assessment and Plan (1) Peptic ulcer disease: Code(s): K27.9 - Peptic ulcer, site unspecified, unspecified as acute or chronic, without hemorrhage or perforation Status: Acute Assessment and Plan: found yesterday during egd continue with ppi bid, no signs of bleeding 2g na diet (2) Cirrhosis of liver with ascites: Code(s): K74.60 - Unspecified cirrhosis of liver; R18.8 - Other ascites Status: Acute Assessment and Plan: traumatic paracentesis, no sbp though after correcting for rbc 2g na diet, s/p iv albumin will start low dose diuretics now that renal function is ok when she goes home I can see her in office but also will be nice idea to refer to hepatology at [facility] because she has decompensated cirrhosis, mostly likely hassan given risk factors (workup pending) (3) Hepatic encephalopathy: Code(s): K72.90 - Hepatic failure, unspecified without coma Status: Acute Assessment and Plan: continue with lactulose, pleasantly confused (4) Coagulopathy: Code(s): D68.9 - Coagulation defect, unspecified Status: Acute Assessment and Plan: from liver disease (5) Acute on chronic anemia: Code(s): D64.9 - Anemia, unspecified Status: Acute Assessment and Plan: stable hb last 48 hours, holding blood thinner (6) Pancytopenia: Code(s): D61.818 - Other pancytopenia Status: Acute (7) Type 2 diabetes mellitus with diabetic polyneuropathy, with long-term current use of insulin: Code(s): E11.42 - Type 2 diabetes mellitus with diabetic polyneuropathy; Z79.4 - face hardener (current) use of insulin Status: Acute Subjective Date/time seen: 07/05/20 16:43 Interval history: egd yesterday showed gastric/duodenal ulcers, esophagitis, non-bleeding, no varices. Ascites with red cells (most likely traumatic) with stable hb Review of Systems Review of Systems: All systems reviewed & are unremarkable except as noted in HPI and below Exam Const: General: comfortable and no acute distress Other: chronically ill appearing, obese HENMT: General nose exam: Normal nares present Eyes: General: appearance normal, both eyes and all related structures Neck: Neck: no JVD Resp: Auscultation: clear to auscultation bilaterally Cardio: Rate: regular rate Rhythm: regular rhythm GI: Inspection: non-distended GI Palp: Yes Soft to palpation Percussion: Yes Fluid wave present Auscultation: normal bowel sounds Skin: General skin exam: no erythema and pallor Neuro: Speech: normal speech Other: awake and alert x2, sometimes gets confused, pleasant Extrem: General: normal to inspection Psych: Affect: normal affect Objective Data Vital Signs Vital Signs: Vital Signs - 24 hr 07/04/20 20:00 07/04/20 21:05 07/04/20 21:06 Temperature 98.1 F Pulse Rate 93 52 L 86 Respiratory Rate 16 18 Blood Pressure 129/90 Pulse Oximetry 96 96 07/05/20 00:00 07/05/20 04:00 07/05/20 08:40 Temperature 97.7 F 96.8 F L Pulse Rate 52 L 85 60 Respiratory Rate 18 18 Blood Pressure 117/46 L 110/50 L Pulse Oximetry 96 96 07/05/20 10:00 07/05/20 10:20 07/05/20 12:00 Temperature 97.0 F L 98.1 F Pulse Rate 50 L 46 L 51 L Respiratory Rate 16 16 18 Blood Pressure 116/40 L 102/40 L Pulse Oximetry 96 93 97 Intake/Output Intake/Output: Intake & Output 07/02/20 07/03/20 07/04/20 07/05/20 23:59 23:59 23:59 23:59 Intake Total 435 3440 2320 540 Output Total 100 3100 Balance 435 3340 -780 540 Meds/Results Medications: Active Medications Generic Name Dose Route Start Last Admin Trade Name Freq PRN Reason Stop Dose Admin Al Hydrox/Mg Hydrox/Simethicone 30 ml 06/29/20 21:30 Mag Hydrox/Al Hydrox/Simeth 30 Ml Udc PO QID PRN Dyspepsia Dextrose 12.5 gm 06/30/20 09:03 07/04/20 07:54 Dextrose 50% 25 Gm/50 Ml Syringe IV PUSH 12.5 gm PRN PRN Administration Hypoglycemia Protocol
[2020-07-05 17:22] LABS: Glucose Point of Care 145 (65-105)
[2020-07-05] MEDS: INSULIN GLARGINE (*BKC) 100 UNITS/ML 40 UNITS SUB-Q (21:12)
[2020-07-06] VITALS: BP 118/40; PULSE 50; RESP 16; TEMP 36.6; O2SAT 100
[2020-07-06 00:39] LABS: Glucose Point of Care 129 (65-105)
[2020-07-06 06:00] VITALS: BP 98/34; PULSE 53; RESP 16; TEMP 36.6; O2SAT 95
[2020-07-06 08:07] LABS: Glucose Point of Care 66 (65-105)
[2020-07-06 08:31] LABS: Glucose Point of Care 71 (65-105)
[2020-07-06] MEDS: LACTULOSE 20 GM/30 ML UDC 30 GM PO (08:39)
[2020-07-06] MEDS: FERROUS GLUCONATE 324 MG TABLET PO (08:39)
[2020-07-06 08:40] VITALS: PULSE 60
[2020-07-06] MEDS: FUROSEMIDE 20 MG TABLET PO (08:40)
[2020-07-06] MEDS: METOPROLOL TARTRATE 25 MG TABLET PO (08:40)
[2020-07-06] MEDS: ESCITALOPRAM OXALATE 10 MG TABLET PO (08:40)
[2020-07-06] MEDS: PANTOPRAZOLE 40 MG TABLET PO (08:41)
[2020-07-06] MEDS: SPIRONOLACTONE 50 MG TABLET PO (08:42)
[2020-07-06] MEDS: rifAXIMin 550 MG TABLET PO (08:42)
[2020-07-06] MEDS: PRAVASTATIN SODIUM 20 MG TABLET PO (08:42)
[2020-07-06] MEDS: TRIAMCINOLONE ACET 0.1% OINT 15 GM TUBE 1 APPLIC TOPICAL (08:42)
[2020-07-06 09:04] LABS: Basophils Percent Auto 0.5 % (0.2-1.2); Eosinophils Absolute Auto 0.1 K/mm3 (0-0.3); Eosinophils Percent Auto 1.8 % (0-4.4); Hematocrit 28.9 % (37.0-47.0); Hemoglobin 8.8 g/dL (12.0-15.0); Immature Granulocyte Absolute 0.02 K/mm3 (0.00-0.031); Immature Granulocyte Percent A 0.5 % (0-0.5); Lymphocytes Absolute Auto 0.84 K/mm3 (0.9-3.2); Mean Corpuscular HGB Conc 30.4 g/dl (32-36); Mean Corpuscular Hemoglobin 25.6 pg (26-34); Mean Platelet Volume 11.6 fl (7.4-10.4); Monocytes Absolute Auto 0.2 K/mm3 (0.1-0.6); Monocytes Percent Auto 6.3 % (2.6-8.5); Neutrophils Absolute Auto 2.6 K/mm3 (1.3-6.7); Neutrophils Percent Auto 68.9 % (45.5-73.1); Platelet Count Result 67 k/mm3 (150-375); Red Blood Count 3.44 M/mm3 (4.2-5.4); Red Cell Distribution Width 18.5 % (11.5-14.5); White Blood Count 3.8 K/mm3 (4.5-10.0)
[2020-07-06 09:13] LABS: INR 1.6; Prothrombin Time 19.3 Seconds (11.1-14.7)
[2020-07-06 09:33] LABS: Alanine Aminotransferase 10 U/L (4-35); Albumin Level 3.3 g/dL (3.5-5.1); Alkaline Phosphatase 47 U/L (38-126); Anion Gap 10 mmol/L (8-16); Aspartate Amino Transferase 26 U/L (14-36); Blood Urea Nitrogen 13 mg/dL (7-17); Calcium 8.3 mg/dL (8.4-10.2); Carbon Dioxide 26 mmol/L (22-30); Chloride 107 mmol/L (98-107); Estimated CRCL calculation 69 ml/min; Estimated Glomerular Filt Rate > 60; Glucose 62 mg/dL (65-105); Magnesium 1.9 mg/dL (1.6-2.3); Potassium 3.5 mmol/L (3.4-5.0); Sodium 143 mmol/L (137-145)
--- NOTE | 2020-07-06 10:00 | WPDGIPROGNO ---
Progress Note: A&P Assessment and Plan (1) Cirrhosis of liver with ascites: Code(s): K74.60 - Unspecified cirrhosis of liver; R18.8 - Other ascites Status: Acute Assessment and Plan: traumatic paracentesis, no sbp though after correcting for rbc 2g na diet, s/p iv albumin ok to go home with low dose diuretics (50mg aldactone and 20mg lasix- normal renal function) and follow-up office in 2 weeks mostly likely hassan given risk factors (workup pending) (2) Peptic ulcer disease: Code(s): K27.9 - Peptic ulcer, site unspecified, unspecified as acute or chronic, without hemorrhage or perforation Status: Acute Assessment and Plan: continue with ppi bid, no signs of bleeding tolerating diet (3) Hepatic encephalopathy: Code(s): K72.90 - Hepatic failure, unspecified without coma Status: Acute Assessment and Plan: continue with lactulose titrate for 3 BM/d, pleasantly confused (4) Coagulopathy: Code(s): D68.9 - Coagulation defect, unspecified Status: Acute Assessment and Plan: from liver disease (5) Acute on chronic anemia: Code(s): D64.9 - Anemia, unspecified Status: Acute Assessment and Plan: stable hb last 3 days, holding blood thinner (6) Pancytopenia: Code(s): D61.818 - Other pancytopenia Status: Acute (7) Type 2 diabetes mellitus with diabetic polyneuropathy, with long-term current use of insulin: Code(s): E11.42 - Type 2 diabetes mellitus with diabetic polyneuropathy; 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 Review of Systems Review of Systems: All systems reviewed & are unremarkable except as noted in HPI and below Exam Const: General: comfortable and no acute distress Other: chronically ill appearing, obese HENMT: General nose exam: Normal nares present Eyes: General: appearance normal, both eyes and all related structures Neck: Neck: no JVD Resp: Auscultation: clear to auscultation bilaterally Cardio: Rate: regular rate Rhythm: regular rhythm GI: Inspection: non-distended GI Palp: Yes Soft to palpation Percussion: Yes Fluid wave present Auscultation: normal bowel sounds Skin: General skin exam: no erythema and pallor Neuro: Speech: normal speech Other: awake and alert x2, sometimes gets confused, pleasant Extrem: General: normal to inspection Psych: Affect: normal affect Objective Data Vital Signs Vital Signs: Vital Signs - 24 hr 07/05/20 18:00 07/05/20 20:00 07/06/20 00:00 Temperature 98.0 F 98.3 F 97.8 F Pulse Rate 47 L 50 L 50 L Respiratory Rate 16 14 16 Blood Pressure 117/50 L 112/42 L 118/40 L Pulse Oximetry 98 98 100 07/06/20 06:00 07/06/20 08:40 Temperature 97.9 F Pulse Rate 53 L 60 Respiratory Rate 16 Blood Pressure 98/34 L Pulse Oximetry 95 Intake/Output Intake/Output: Intake & Output 07/03/20 07/04/20 07/05/20 07/06/20 23:59 23:59 23:59 23:59 Intake Total 3440 2320 660 440 Output Total 100 3100 Balance 3340 -780 660 440 Meds/Results Radiology Results: ITS Impressions Abdomen/Pelvis CT 06/29/20 20:41 IMPRESSION: Cirrhosis, splenomegaly, prominent ascites Hepatic cyst 6.5 mm right renal cyst Diverticulosis of the colon Suggestion of a 5 cm multilocular right adnexal cyst Head CT 07/03/20 15:48 IMPRESSION: 1. 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 No acute intracranial process. 2. Age-related changes including mild/moderate diffuse on loss and mild scattered white matter hypoattenuation consistent with chronic small vessel ischemic disease. 2. Chronic right sphenoid sinusitis. Chest X-Ray 07/03/20 15:57 IMPRESSION: 1. Prominent but indistinct reticulation, could be edema and/or fibrosis. Paracentesis Ultrasound 07/04/20 12:00 IMPRESSION: 1. Successful u
[2020-07-06 12:08] LABS: Glucose Point of Care 107 (65-105)
--- NOTE | 2020-07-06 12:32 | PCDIET ---
Nutrition Follow-Up Complete: Inadequate Oral Intake as related to abdominal distention as evidenced by poor po intake and weight loss reported. Meet estimated nutritional needs Goal:Goal met. Continue goal. Pt current nutrition is 2gm Na, Diabetic, Ensure compact BID Nutrition recommendation: Agree Last recorded weight is 92.5 kg (no change) Recommend updated wt Bowel Motility: 18 BM+ Labs Reviewed:Hgb 8.8, Hct 28.9, Albumin 3.3, Protein 6.0, Bilirubin 2.0, Glucose 62 Meds Noted:Colace, Lexapro, Fe, Lasix, Lantus/Novolog, Pravastatin Additional Notes: Pt on appropriate diet, 2gm Na/ Diabetic with Ensure compact BID. PO intake 75-100% of all meals. Recommend updated wt. Bowels moving. We will continue to monitor every 5 days for adequate intake and wt maintenance.
--- NOTE | 2020-07-06 13:18 | PM.DS ---
DS: Admitting Diagnosis Admitting Diagnosis Admitting Diagnosis: Ascites, Live cirrhosis DS: Discharge Diagnosis Discharge Diagnosis (1) Cirrhosis of liver with ascites: Code(s): K74.60 - Unspecified cirrhosis of liver; R18.8 - Other ascites Status: Acute Assessment and Plan: Discharge Summary (Date of service 07/06/20): Mrs. Estevez is a 69 y.o. female with PMH significant for cirrhosis, DARA, paroxysmal atrial fibrillation, hypertension, and type 2 diabetes mellitus who presented to the emergency department 06/29/20 for the evaluation of abdominal bloating and discomfort. CT abdomen/pelvis demonstrated cirrhosis with prominent ascites. She was admitted to the hospitalist service and gastroenterology was consulted for cirrhosis with large volume ascites. She was treated with IV albumin initially which was discontinued 07/02. She underwent paracentesis on 07/01 which yielded 5000 ml juan manuel fluid. Fluid cultures were obtained and showed no evidence of atypia malignancy. Cell counts were unfortunately not obtained from initial paracentesis. Aerobic culture showed no growth and anaerobic culture shows no growth to date. She underwent paracentesis again 07/04 which yielded 3100 ml of red fluid with cell count showing 38,288 RBC, 844 nucleated cells, 8% neutrophils. Discussed with GI and increased RBC was likely secondary to traumatic paracentesis. Her abdominal distention improved significantly and pain resolved. She was started on spironolactone and furosemide per GI. Additional workup to determine the etiology for her cirrhosis was performed per GI but GI felt this was likely secondary to CARROLL. She did have elevated ammonia level and confusion with concern for hepatic encephalopathy. Confusion resolved with lactulose therapy. She was advised to continue rifaximin and lactulose at discharge with lactulose titrated to achieve three bowel movements daily. I discussed this with the patient and her who verbalized understanding. She felt much better and requested to go home. Rehab was recommended but the pt and her preferred for her to go home. Her noted that he was already providing 24/7 care for the pt and would continue this at discharge. She was felt stable for discharge from a GI standpoint and she was discharged in hemodynamically stable condition on the afternoon of 07/06/20. She was advised to follow-up with Dr. Guzman within 1 week after discharge. (2) Peptic ulcer disease: Code(s): K27.9 - Peptic ulcer, site unspecified, unspecified as acute or chronic, without hemorrhage or perforation Status: Acute Assessment and Plan: EGD performed 07/[address] Guzman showed esophagitis, duodenitis, peptic ulcer disease, and gastritis. PPI BID was continued at discharge and she was advised to avoid NSAIDs. (3) Hepatic encephalopathy: Code(s): K72.90 - Hepatic failure, unspecified without coma Status: Acute Assessment and Plan: She became more confused on 07/02 and ammonia was elevated. She had not a had a BM for 3-4 days prior. She received lactulose enema with rapid induction of bowel movement. CT brain was performed 07/03 and showed unchanged right thalamic old lacunar infarct with age-related change consistent with small vessel ischemic disease. Her confusion improved and hepatic encephalopathy resolved. PO lactulose and rifaximin were continued at discharge and I discussed that the lactulose must be titrated to achieve 3 bowel movements daily. The pt and her verbalized understanding. (4) Anemia: Code(s): D64.9 - Anemia, unspecified Status: Acute Assessment and Plan: She received 1 unit pRBC on 06/30 and 07/03. There was no evidence of active bleeding but EGD demonstrated moderate diffuse esophagitis, gastritis, and superficial ulcers. Pantoprazole BID was initiated. Iron stores were deficient and PO ferrous sulfate was initiated. B12
[2020-07-06 16:58] LABS: Albumin Peritoneal Fluid 2.5 g/dL
[2020-07-07 13:34] LABS: Ceruloplasmin 20 mg/dL (18-53)
== END 2020-07-06 14:00 | disposition home health service (06) | DRG 433 ==
LOC: ANHED 21:30 → ANH3MEDSUR 06-30 01:30
PROVIDERS: Emergency Medicine; Internal Medicine Gastroenterology; Physician Assistant; Admitting Provider Internal Medicine; Emergency Provider Emergency Medicine; PCP Family Medicine; Visit Provider Physician Assistant
PROC: 0DJ08ZZ Inspection of Upper Intestinal Tract, Via Natural or Artificial Opening Endoscopic (ICD-10-PCS; CPT 43235; principal; 2020-07-04 12:30)
DX: K74.60 Unspecified cirrhosis of liver; D61.818 Other pancytopenia; D68.4 Acquired coagulation factor deficiency; R18.8 Other ascites; N17.9 Acute kidney failure, unspecified; K75.81 Nonalcoholic steatohepatitis (NASH); K72.90 Hepatic failure, unspecified without coma; D50.0 Iron deficiency anemia secondary to blood loss (chronic); K20.90 Esophagitis, unspecified without bleeding; K29.70 Gastritis, unspecified, without bleeding; K29.80 Duodenitis without bleeding; K26.9 Duodenal ulcer, unspecified as acute or chronic, without hemorrhage or perforation; E11.42 Type 2 diabetes mellitus with diabetic polyneuropathy; R09.02 Hypoxemia; I48.0 Paroxysmal atrial fibrillation; I10 Essential (primary) hypertension; K52.9 Noninfective gastroenteritis and colitis, unspecified; G47.33 Obstructive sleep apnea (adult) (pediatric); F17.210 Nicotine dependence, cigarettes, uncomplicated; R33.9 Retention of urine, unspecified; L23.1 Allergic contact dermatitis due to adhesives; Z96.659 Presence of unspecified artificial knee joint; Z79.01 Long term (current) use of anticoagulants; Z79.4 Long term (current) use of insulin; Z99.89 Dependence on other enabling machines and devices
CPT/HCPCS: 36415; 36430; 49083; 70450; 71046; 74177; 80048; 80053; 80074; 81001; 82042; 82104; 82140; 82248; 82274; 82390; 82607; 82728; 82746; 83036; 83520; 83540; 83550; 83615; 83690; 83735; 85014; 85018; 85025; 85027; 85055; 85610; 85730; 86038; 86850; 86900; 86901; 86923; 87070; 87075; 87081; 87205; 88104; 88108; 88305; 89051; 93970; 96374; 96375; 97110; 97116; 97161; 97166; 97530; 97535; 99285; A9270; J1815; J1940; J2405; J2704; J7030; J7050; J7120; P9016; P9047; Q9967

== ENCOUNTER 2020-07-14 11:37 | Outpatient (NON) | payer MEDICARE, SELFPAY ==
[2020-07-14 11:57] LABS: Hematocrit 31.5 % (37.0-47.0); Hemoglobin 9.7 g/dL (12.0-15.0); Mean Corpuscular HGB Conc 30.8 g/dl (32-36); Mean Corpuscular Hemoglobin 25.9 pg (26-34); Mean Platelet Volume 10.9 fl (7.4-10.4); Platelet Count Result 99 k/mm3 (150-375); Red Blood Count 3.75 M/mm3 (4.2-5.4); Red Cell Distribution Width 19.9 % (11.5-14.5); White Blood Count 5.4 K/mm3 (4.5-10.0)
[2020-07-14 12:09] LABS: Alanine Aminotransferase 12 U/L (4-35); Albumin Level 3.3 g/dL (3.5-5.1); Alkaline Phosphatase 90 U/L (38-126); Anion Gap 7 mmol/L (8-16); Aspartate Amino Transferase 29 U/L (14-36); Bilirubin,Total 1.8 mg/dL (0.2-1.3); Blood Urea Nitrogen 15 mg/dL (7-17); Calcium 8.7 mg/dL (8.4-10.2); Carbon Dioxide 31 mmol/L (22-30); Chloride 99 mmol/L (98-107); Estimated Glomerular Filt Rate > 60; Glucose 103 mg/dL (65-105); Potassium 3.4 mmol/L (3.4-5.0); Sodium 137 mmol/L (137-145)
--- NOTE | 2020-07-20 07:01 | PM.IMPN ---
Progress Note: A&P Assessment and Plan (1) Cirrhosis of liver with ascites: Code(s): K74.60 - Unspecified cirrhosis of liver; R18.8 - Other ascites Status: Acute Assessment and Plan: Presented with abdominal bloating and pain. CT abdomen/pelvis showed cirrhosis with prominent ascites. Gastroenterology is on board and recommendations are greatly appreciated. She underwent paracentesis on 07/01 which yielded 5000 ml juan manuel fluid. Fluid cultures were obtained and showed no evidence of atypia/malignancy. Cell counts were unfortunately not obtained from initial paracentesis. Aerobic culture shows no growth and anaerobic culture shows no growth to date. She underwent paracentesis again 07/04 which yielded 3100 ml of red fluid with cell count showing 38,288 RBC, 844 nucleated cells, 8% neutrophils. Discussed with GI and increased RBC may be due to traumatic paracentesis. Monitor H&H closely. Will continue to hold xarelto. IV albumin discontinued on 07/02. Monitor CMP. Workup pending per GI to evaluate for chronic liver conditions. Low sodium diet (2) Peptic ulcer disease: Code(s): K27.9 - Peptic ulcer, site unspecified, unspecified as acute or chronic, without hemorrhage or perforation Status: Acute Assessment and Plan: EGD performed 07/[address] Guzman shows esophagitis, duodenitis, peptic ulcer disease, and gastritis. Appreciate GI input. Continue PPI BID. Avoid NSAIDs. Carafate was also added with meals per GI. Continue to monitor H&H closely. (3) Hepatic encephalopathy: Code(s): K72.90 - Hepatic failure, unspecified without coma Status: Acute Assessment and Plan: She became more confused on 07/02 and ammonia was noted to be elevated. She had not a had a BM for 3-4 days prior. She received lactulose enema with rapid induction of bowel movement. 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 Her confusion has improved significantly and she is agreeable to taking her lactulose. Appreciate GI input. Continue PO lactulose and rifaximin. (4) Anemia: Code(s): D64.9 - Anemia, unspecified Status: Acute Assessment and Plan: She received 1 unit pRBC on 06/30 due to Hgb 6.7. She had minimal improvement in H&H following. Vital signs have been stable. There is no evidence of active bleeding. IFOB negative. Iron stores are deficient. B12 and folate are normal. She received 1 unit pRBC 07/03. Hb is 8.5 and Hct 27.9 07/04. Monitor H&H closely. Transfuse as needed with Hgb threshold <7.0. Continue iron supplement (5) Pancytopenia: Code(s): D61.818 - Other pancytopenia Status: Acute Assessment and Plan: Present upon admission. Secondary to liver disease. White count has normalized. Monitor CBC with diff daily. 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 Blood sugars are well controlled. Hold metformin. Continue consistent-carb diet. Continue ACHS glucose monitoring, sliding scale insulin, and hypoglycemia protocol. (7) PAF (paroxysmal atrial fibrillation): Code(s): I48.0 - Paroxysmal atrial fibrillation Status: Acute Assessment and Plan: Rate controlled. She is on long-term anticoagulation with Xarelto. Stop metoprolol since she is no longer taking this. Discussed with GI. Hold xarelto for now given EGD findings of moderate diffuse esophagitis, gastritis, and superficial ulcers, anemia requiring blood transfusion, and [id number] RBC on paracentesis. (8) Essential (primary) hypertension: Code(s): I10 - Essential (primary) hypertension Status: Acute Assessment and Plan:
== END 2020-07-14 11:38 ==
PROVIDERS: PCP Family Medicine; Visit Provider Physician Assistant
DX: D61.818 Other pancytopenia (principal)
CPT/HCPCS: 80053; 85027; 85055

== ENCOUNTER 2020-08-03 15:12 | Inpatient (IN) | payer MEDICARE, SELFPAY ==
[2020-08-03] VITALS (11 sets, daily range): BP systolic 125–144; BP diastolic 56–75; PULSE 65–74; RESP 15–23; TEMP 36.2–36.8; O2SAT 97–100; BMI 31.4
--- NOTE | ~2020-08-03 | US_ITS ---
EXAMINATION: US paracentesis abd w/image EXAM DATE: 08/03/2020 17:47 INDICATION: Large amount of ascites. Abdominal distention and pain. TECHNIQUE: The procedure and its risks and benefits were discussed with the patient. Alternatives als o discussed. Potential risks discussed included bleeding and infection. The skin was prepped and drap ed in sterile fashion. 3 mm of 1% lidocaine was used for local anesthesia. Under ultrasound guidance, a 5 Fr catheter with trochar was advanced into the ascites in the left lower quadrant. Fluid was asp irated into vacuum bottles. A total of 5 L straw colored fluid was taken in total. The catheter was removed, and a dressing was applied. There were no immediate complications. FINDINGS: Ultrasound images demonstrate ascites. IMPRESSION: Paracentesis removing 5 L fluid. Reviewed, dictated and finalized at location A. S [employer]
--- NOTE | ~2020-08-03 | US_ITS ---
EXAMINATION: US paracentesis abd w/image DATE: 08/05/2020 12:39 INDICATION: Ascites. TECHNIQUE: The procedure and its risks, benefits, and alternatives were discussed with the patient. P otential risks discussed included bleeding and infection. The skin was prepped and draped in sterile fashion. 1% lidocaine was used for local anesthesia. Under ultrasound guidance, a 5 Fr catheter with trochar was advanced into the ascites in the left lower quadrant. Fluid was aspirated. The catheter w as removed, and a dressing was applied. There were no immediate complications. FINDINGS: Ultrasound images demonstrate ascites and the catheter within the fluid. IMPRESSION: 1. Successful ultrasound-guided paracentesis yielding 5000 mL of brown, cloudy fluid. Reviewed, dictated and finalized at location A. REBUILDER
--- NOTE | 2020-08-03 15:24 | ED.ABDPAIN ---
HPI - Abdominal Pain General Chief Complaint: Abdominal Pain Stated Complaint: abdominal pain Time Seen by Provider: 08/03/20 15:24 Source: patient Limitations: no limitations History of Present Illness HPI narrative: 69 years old white female presents with pain and increase the size of her ascites over the last few weeks. Patient denies any fever, chills, nausea, vomiting. Recent abdominal centesis 2 weeks ago. Related Data Home Medications Medication Instructions Recorded Confirmed escitalopram oxalate 20 mg tablet 10 mg PO DAILY 08/05/19 06/30/20 insulin glargine 100 unit/mL (3 40 unit SUB-Q DAILY 08/05/19 06/30/20 mL) subcutaneous pen metformin 1,000 mg tablet 1,000 mg PO BID 08/05/19 06/30/20 pravastatin 20 mg tablet 20 mg PO DAILY 08/05/19 06/30/20 rivaroxaban 20 mg tablet 20 mg PO DAILY 08/05/19 06/30/20 Allergies Allergy/AdvReac Type Severity Reaction Status Date / Time No Known Allergies Allergy Verified 08/03/20 15:27 Review of Systems Review of Systems: Narrative: CONSTITUTIONAL: Denies fever, chills, or sweats. EYES: Denies visual changes, redness, or discharge. ENT: Denies rhinorrhea, congestion, sore throat, or otalgia. CARDIOVASCULAR: Denies chest pain, palpitations, or edema. RESPIRATORY: Denies cough or dyspnea. GASTROINTESTINAL: Denies abdominal pain, nausea, vomiting, or diarrhea. GENITOURINARY: Denies dysuria or hematuria. SKIN: Denies rash or itching. MUSCULOSKELETAL: Denies back pain, joint pain, or myalgia. NEUROLOGIC: Denies headache, numbness, or weakness. PSYCHIATRIC: Denies anxiety or depression. ON LICENSE OF [facility] Past Medical History Medical History Acute kidney failure Acute on chronic anemia Chronic pain of left knee Cirrhosis of liver with ascites Coagulopathy Essential (primary) hypertension Hepatic encephalopathy PAF (paroxysmal atrial fibrillation) Type 2 diabetes mellitus with diabetic polyneuropathy, with long-term current use of insulin Surgical History Surgical History S/P knee replacement Family History Family History Sibling Carcinoma of colon Patient's brother is Mother Family history of lung cancer Patient's mother is Father Family history of chronic obstructive pulmonary disease Patient's father is Social History Social History Years smoked: 25 Smoking status: Current some day smoker Tobacco type: cigarettes Smoking end date: 08/18/13 Alcohol intake: never Gender identity (if verbalized by the patient): Female Spiritual care concerns: No Exam Narrative: Exam Narrative: General appearance: Well-developed, looks ill Skin: Normal color Head: Normocephalic, nontraumatic Eyes: Clear conjunctiva ENT: Oropharynx normal, ears normal, nose normal Neck: Supple, nontender Chest and respiratory: Airway patent, no respiratory distress, no accessory muscle use Heart: Regular rate/rhythm Abdomen: Large ascites Vascular: Normal peripheral pulses, normal capillary refill. 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 Ridley Date: 08/03/20 Time: 16:02 Vital Signs Vital signs: Vital Signs Temperature 36.8 C 08/03/20 15:21 Pulse Rate 72 08/03/20 15:21 Respiratory Rate 18 08/03/20 15:21 Blood Pressure 144/75 H 08/03/20 15:21 Pulse Oximetry 99 08/03/20 15:21 Temperature 36.8
[2020-08-03 15:49] LABS: Basophils Percent Auto 0.3 % (0.2-1.2); Eosinophils Absolute Auto 0.1 K/mm3 (0-0.3); Eosinophils Percent Auto 0.8 % (0-4.4); Hematocrit 34.1 % (37.0-47.0); Hemoglobin 10.5 g/dL (12.0-15.0); Immature Granulocyte Absolute 0.04 K/mm3 (0.00-0.031); Immature Granulocyte Percent A 0.7 % (0-0.5); Lymphocytes Percent Auto 13.1 % (18.3-44.2); Mean Corpuscular HGB Conc 30.8 g/dl (32-36); Mean Corpuscular Hemoglobin 26.8 pg (26-34); Monocytes Absolute Auto 0.3 K/mm3 (0.1-0.6); Monocytes Percent Auto 4.1 % (2.6-8.5); Neutrophils Absolute Auto 4.9 K/mm3 (1.3-6.7); Platelet Count Result 99 k/mm3 (150-375); Red Blood Count 3.92 M/mm3 (4.2-5.4); Red Cell Distribution Width 21.4 % (11.5-14.5); White Blood Count 6.1 K/mm3 (4.5-10.0)
[2020-08-03 15:52] LABS: Lipase 16 U/L (23-300)
[2020-08-03 15:54] LABS: INR 1.3; Prothrombin Time 17.1 Seconds (11.1-14.7)
[2020-08-03 16:45] LABS: Add Urine Microscopic? YES; Amorphous Sediment Urine Few; Appearance Urine Clear (Clear); Bacteria Urine Trace /hpf; Bilirubin Urine Negative (Negative); Blood Urine Negative (Negative); Color Urine Amber (Yellow); Glucose Urine UA Negative (Negative); Ketones Urine Negative (Negative); Leukocyte Esterase Ur Negative LEU/UL (Negative); Mucus Urine Rare /lpf; Nitrate Urine Negative (Negative); Protein Urine 1+ mg/dL (Negative); RBC Urine 0-2 /hpf (0-2); Specific Grav Ur 1.026 (1.001-1.035); Squamous Epithelial Cell Urine Rare /hpf (Few); WBC Urine 0-3 /hpf
--- NOTE | 2020-08-03 18:22 | ADMGEN ---
This patient, Taryn Estevez, was admitted to 3 Med Surg Room 304-01. Report received from MIRZA Vera. Patient/family oriented to hospital policies and general routines including ID bracelet, bed and alarms, visiting hours, pain management, procedures, bathroom and other care routines, personal items, smoking policy, room service/diet, and visiting hours. Information on how to activate the Rapid Response Team has been discussed. Patient/Family are encouraged to report perceived risks to care and to ask questions if they do not understand what they are told or what they should do.
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
[2020-08-03] MEDS: PANTOPRAZOLE 40 MG TABLET PO (20:25)
[2020-08-03 20:28] LABS: Glucose Point of Care 152 (65-105)
[2020-08-03 20:57] LABS: Ammonia 31 umol/L (9-30)
--- NOTE | 2020-08-03 21:05 | PC.NURSE ---
Stated, I feel safer here than anywhere. Time spent at bedside. CHNIO Pike, remaining at bedside as sitter. Continue to monitor.
[2020-08-03] MEDS: LACTULOSE 20 GM/30 ML UDC 30 GM PO (21:06)
--- NOTE | 2020-08-03 21:25 | PC.NURSE ---
Report given to Lien FISH WORM GROWER.
--- NOTE | 2020-08-03 21:50 | PC.NURSE ---
Transferred to ICU 8 per wheelchair. Belongings sent.
--- NOTE | 2020-08-03 22:49 | PC.NURSE ---
This patient, Taryn Estevez, was received from [facility] on 08/03/20 at 2200. Patient/family oriented to unit policies and routines
[2020-08-04] VITALS: BP 117/49; PULSE 71; RESP 14; TEMP 36.3; O2SAT 98
--- NOTE | 2020-08-04 04:08 | PC.NURSE ---
This patient, Taryn Estevez, was received from [facility] on 08/04/20 at 0400. Patient/family oriented to unit policies and routines
[2020-08-04 04:53] LABS: Lactate Dehydrogenase 504 U/L (313-618); Magnesium 1.7 mg/dL (1.6-2.3)
[2020-08-04 04:59] LABS: Basophils Percent Auto 0.5 % (0.2-1.2); Eosinophils Percent Auto 0.7 % (0-4.4); Hematocrit 30.7 % (37.0-47.0); Hemoglobin 9.8 g/dL (12.0-15.0); Immature Granulocyte Absolute 0.02 K/mm3 (0.00-0.031); Immature Granulocyte Percent A 0.5 % (0-0.5); Lymphocytes Absolute Auto 0.84 K/mm3 (0.9-3.2); Lymphocytes Percent Auto 19.4 % (18.3-44.2); Mean Corpuscular HGB Conc 31.9 g/dl (32-36); Mean Corpuscular Hemoglobin 27.7 pg (26-34); Mean Corpuscular Volume 86.7 fl (80-100); Mean Platelet Volume 10.4 fl (7.4-10.4); Monocytes Absolute Auto 0.2 K/mm3 (0.1-0.6); Monocytes Percent Auto 4.8 % (2.6-8.5); Neutrophils Absolute Auto 3.2 K/mm3 (1.3-6.7); Neutrophils Percent Auto 74.1 % (45.5-73.1); Platelet Count Result 79 k/mm3 (150-375); Red Blood Count 3.54 M/mm3 (4.2-5.4); Red Cell Distribution Width 21.3 % (11.5-14.5); White Blood Count 4.3 K/mm3 (4.5-10.0)
[2020-08-04 05:03] LABS: Hemoglobin A1C 4.5 % (<5.7)
[2020-08-04 05:18] LABS: Lipase < 10 U/L (23-300)
[2020-08-04 08:05] VITALS: BP 120/51; PULSE 75; RESP 16; TEMP 36.5; O2SAT 95
[2020-08-04] MEDS: LACTULOSE 20 GM/30 ML UDC 30 GM PO ×3 (08:15→21:43)
[2020-08-04] MEDS: INSULIN GLARGINE (*BKC) 100 UNITS/ML 40 UNITS SUB-Q (08:15)
[2020-08-04] MEDS: RIVAROXABAN 20 MG TABLET PO (08:16)
[2020-08-04] MEDS: PANTOPRAZOLE 40 MG TABLET PO ×2 (08:16→21:43)
[2020-08-04] MEDS: ESCITALOPRAM OXALATE 10 MG TABLET PO (08:16)
[2020-08-04] MEDS: FUROSEMIDE 20 MG TABLET PO (08:16)
[2020-08-04] MEDS: PRAVASTATIN SODIUM 20 MG TABLET PO (08:16)
[2020-08-04] MEDS: SPIRONOLACTONE 50 MG TABLET PO (08:16)
[2020-08-04] MEDS: FERROUS GLUCONATE 324 MG TABLET PO (08:16)
[2020-08-04 08:26] LABS: Glucose Point of Care 76 (65-105)
[2020-08-04 11:59] LABS: Glucose Point of Care 94 (65-105)
[2020-08-04 12:26] LABS: Anion Gap 6 mmol/L (8-16); Blood Urea Nitrogen 13 mg/dL (7-17); Calcium 8.2 mg/dL (8.4-10.2); Carbon Dioxide 30 mmol/L (22-30); Chloride 97 mmol/L (98-107); Estimated CRCL calculation 71 ml/min; Estimated Glomerular Filt Rate > 60; Glucose 97 mg/dL (65-105); Potassium 3.6 mmol/L (3.4-5.0); Sodium 133 mmol/L (137-145)
[2020-08-04 12:27] LABS: Ethanol < 10 mg/dL (<10)
[2020-08-04 13:11] VITALS: BMI 29.6
--- NOTE | 2020-08-04 13:34 | WPDGICN ---
Assessment and Plan Assessment and plan (1) Cirrhosis of liver with ascites: Code(s): K74.60 - Unspecified cirrhosis of liver; R18.8 - Other ascites Status: Acute Assessment and Plan: probably hassan based on risk factors, her MELD score in previous hospitalization 8-9 (will get labs to recheck again) ok to advance diet will get another paracentesis and check fluid to assess for SBP but no pain or fever, will get albumin IV 2g na diet with dietary supplements given recurrent ascites also will increase her diuretics while we are monitoring renal function. (2) Acute on chronic anemia: Code(s): D64.9 - Anemia, unspecified Status: Acute Assessment and Plan: multifactorial, history of PUD continue with ppi (3) Cryptogenic cirrhosis: Code(s): K74.69 - Other cirrhosis of liver Status: Acute (4) Depression: Code(s): F32.9 - Major depressive disorder, single episode, unspecified Status: Acute Assessment and Plan: on suicidal precaution by primary team but she denies any harmful thoughts now (5) Generalized weakness: Code(s): R53.1 - Weakness Status: Acute (6) Type 2 diabetes mellitus with diabetic polyneuropathy, with long-term current use of insulin: Code(s): E11.42 - Type 2 diabetes mellitus with diabetic polyneuropathy; Z79.4 - snf (current) use of insulin Status: Acute Assessment and Plan: on medication GI Consult Note Consult date/time: 08/04/20 13:34 Reason for consult: ascites, cirrhosis. HPI: Taryn Estevez is a 69 year old female with history of cirrhosis at least since 2015 based on records when found by CT scan and also thrombocytopenia (evaluated by hematology because of the same in 2017) in the past labeled as cryptogenic but HASSAN is another possibility based on risk factors, Afib on xarelto, DARA, HTN and DM. I saw her last month when she was admitted to the hospital with ascites and went home with diuretics, also had mod-sever esophagitis with erosive gastritis prescribed PPI. This time she was admitted after noted increase abdominal girth, had 5 liters removed and feeling better. She also report thoughts about killing herself however she has not done anything, today says that she is not feeling that way anymore but still is under suicidal precaution and admitted to ICU because of the same. Review of Systems Constitutional: Constitutional: Denies chills and Reports lethargy Eyes: Eyes: Reports no additional eye complaints ENT: Reports Normal hearing present Cardiovascular: Cardiovascular: Reports chest pain Respiratory: Respiratory: Denies cough Gastrointestinal: Gastrointestinal: Denies nausea Genitourinary: Genitourinary: Denies hematuria Musculoskeletal: Musculoskeletal: Denies neck pain Neurologic: Reports headache(s) Psychiatric: Psychiatric: Reports anxiety, Reports depression and Reports homicidal ideation [facility] Past Medical History Medical History (Updated 08/03/20 @ 20:10 by Glendy Arias NP) Acute kidney failure Acute on chronic anemia Chronic pain of left knee Cirrhosis of liver with ascites Coagulopathy Depression Essential (primary) hypertension Hepatic encephalopathy History of CVA (cerebrovascular accident) PAF (paroxysmal atrial fibrillation) Type 2 diabetes mellitus with diabetic polyneuropathy, with long-term current use of insulin Surgical History Surgical History S/P knee replacement Family History Family History Sibling Carcinoma of colon Patient's brother is Mother Family history of lung cancer Patient's mother is Father Family history of chronic obstructive pulmonary disease Patient's father is Social History Social History (Updated 08/03/20 @ 20:05 by Glendy Arias NP) Social History
[2020-08-04 14:00] VITALS: BP 122/67; PULSE 71; RESP 14; TEMP 36.6; O2SAT 97
[2020-08-04 15:04] LABS: Amphetamine Screen Urine Negative (Negative); Barbiturate Screen Urine Negative (Negative); Benzodiazepines Screen Urine Negative (Negative); Cannabinoid Screen Urine Negative (Negative); Cocaine Screen Urine Negative (Negative); Methadone Screen Urine Negative (Negative); Opiate Screen Urine Negative (Negative); Phencyclidine Screen Urine Negative (Negative)
[2020-08-04 16:46] LABS: Glucose Point of Care 82 (65-105)
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
[2020-08-04 17:20] VITALS: PULSE 71; RESP 14; O2SAT 97
[2020-08-04 21:31] VITALS: BP 131/51; PULSE 81; RESP 16; TEMP 36.9; O2SAT 95
[2020-08-04] MEDS: TOLNAFTATE 1% POWDER 45 GM BTL 1 APPLIC TOPICAL (21:43)
[2020-08-04 22:07] LABS: Glucose Point of Care 169 (65-105)
[2020-08-05] MEDS: LACTULOSE 20 GM/30 ML UDC 30 GM PO ×3 (05:36→22:29)
[2020-08-05 06:00] VITALS: BP 122/43; PULSE 76; RESP 16; TEMP 36.6; O2SAT 94
[2020-08-05 06:55] LABS: Basophils Percent Auto 0.3 % (0.2-1.2); Eosinophils Absolute Auto 0.1 K/mm3 (0-0.3); Hematocrit 29.7 % (37.0-47.0); Hemoglobin 9.6 g/dL (12.0-15.0); Immature Granulocyte Absolute 0.03 K/mm3 (0.00-0.031); Immature Granulocyte Percent A 0.5 % (0-0.5); Lymphocytes Percent Auto 17.2 % (18.3-44.2); Mean Corpuscular HGB Conc 32.3 g/dl (32-36); Mean Corpuscular Hemoglobin 27.3 pg (26-34); Mean Corpuscular Volume 84.4 fl (80-100); Mean Platelet Volume 10.4 fl (7.4-10.4); Monocytes Absolute Auto 0.2 K/mm3 (0.1-0.6); Neutrophils Absolute Auto 4.5 K/mm3 (1.3-6.7); Platelet Count Result 90 k/mm3 (150-375); Red Blood Count 3.52 M/mm3 (4.2-5.4); Red Cell Distribution Width 21.2 % (11.5-14.5); White Blood Count 5.8 K/mm3 (4.5-10.0)
[2020-08-05 07:06] LABS: INR 2.9; Prothrombin Time 30.8 Seconds (11.1-14.7)
[2020-08-05 07:09] LABS: Alanine Aminotransferase 12 U/L (4-35); Albumin Level 2.6 g/dL (3.5-5.1); Alkaline Phosphatase 73 U/L (38-126); Anion Gap 7 mmol/L (8-16); Aspartate Amino Transferase 29 U/L (14-36); Bilirubin,Total 1.7 mg/dL (0.2-1.3); Blood Urea Nitrogen 13 mg/dL (7-17); Calcium 7.9 mg/dL (8.4-10.2); Carbon Dioxide 28 mmol/L (22-30); Chloride 96 mmol/L (98-107); Estimated CRCL calculation 62 ml/min; Estimated Glomerular Filt Rate > 60; Glucose 103 mg/dL (65-105); Potassium 3.5 mmol/L (3.4-5.0); Sodium 131 mmol/L (137-145)
[2020-08-05] MEDS: TOLNAFTATE 1% POWDER 45 GM BTL 1 APPLIC TOPICAL ×2 (08:00→22:29)
[2020-08-05 09:48] LABS: Glucose Point of Care 103 (65-105)
--- NOTE | 2020-08-05 11:02 | PC.NURSE ---
spoke with Dr Ruff this morning regarding patient's morning medications to include lantus as well as patient being NPO at this time for a procedure. Dr Ruff stated it was okay to give medications after procedure has been done and patient is no longer NPO. Patient's blood sugar this morning was noted at 103.
--- NOTE | 2020-08-05 12:15 | WPDGIPROGNO ---
Progress Note: A&P Assessment and Plan (1) Cirrhosis of liver with ascites: Code(s): K74.60 - Unspecified cirrhosis of liver; R18.8 - Other ascites Status: Acute Assessment and Plan: still noted fluid wave, paracentesis again today and will give iv albumin diuretics increased to 40mg lasix and aldactone 100mg daily, may need uptitrate dose- monitor renal function 2g na diet (2) Type 2 diabetes mellitus with diabetic polyneuropathy, with long-term current use of insulin: Code(s): E11.42 - Type 2 diabetes mellitus with diabetic polyneuropathy; Z79.4 - intermodal customer service (current) use of insulin Status: Acute (3) PAF (paroxysmal atrial fibrillation): Code(s): I48.0 - Paroxysmal atrial fibrillation Status: Acute (4) Depression: Code(s): F32.9 - Major depressive disorder, single episode, unspecified Status: Acute Assessment and Plan: denies more suicidal thoughts but sitter at bedside (5) Hepatic encephalopathy: Code(s): K72.90 - Hepatic failure, unspecified without coma Status: Acute Assessment and Plan: she is awake and alert, lactulose for 2-3 bm/d (6) Thrombocytopenia: Code(s): D69.6 - Thrombocytopenia, unspecified Status: Acute Assessment and Plan: stable, from cirrhosis Subjective Date/time seen: 08/05/20 12:15 Interval history: no new events, now she is in medical bed and still with sitter Review of Systems Review of Systems: All systems reviewed & are unremarkable except as noted in HPI and below Exam Const: General: comfortable and no acute distress Other: chronically ill appearing, obese HENMT: General nose exam: Normal nares present Eyes: General: appearance normal, both eyes and all related structures Neck: Neck: no JVD Resp: Auscultation: clear to auscultation bilaterally Cardio: Rate: regular rate Rhythm: regular rhythm GI: Inspection: non-distended GI Palp: Yes Soft to palpation Percussion: Yes Fluid wave present Auscultation: normal bowel sounds Skin: General skin exam: no erythema and pallor Neuro: Speech: normal speech Other: pleasant Extrem: General: normal to inspection Psych: Affect: Sad affect present and Anxious affect present Objective Data Vital Signs Vital Signs: Vital Signs - 24 hr 08/04/20 14:00 08/04/20 17:20 08/04/20 21:31 Temperature 97.9 F 98.4 F Pulse Rate 71 71 81 Respiratory Rate 14 14 16 Blood Pressure 122/67 131/51 L Pulse Oximetry 97 97 95 08/05/20 06:00 Temperature 97.9 F Pulse Rate 76 Respiratory Rate 16 Blood Pressure 122/43 L Pulse Oximetry 94 Intake/Output Intake/Output: Intake & Output 08/02/20 08/03/20 08/04/20 08/05/20 23:59 23:59 23:59 23:59 Intake Total 750 400 Output Total 5000 200 Balance -5000 550 400 Meds/Results Medications: Active Medications Generic Name Dose Route Start Last Admin Trade Name Freq PRN Reason Stop Dose Admin Dextrose 12.5 gm 08/03/20 20:11 Dextrose 50% 25 Gm/50 Ml Syringe IV PUSH PRN PRN Hypoglycemia Protocol Escitalopram Oxalate 10 mg 08/04/20 09:00 08/04/20 08:16 Escitalopram Oxalate 10 Mg Tablet PO 10 mg DAILY ANYI Administration Ferrous Gluconate 324 mg 08/04/20 09:00 08/04/20 08:16 Ferrous Gluconate 324 Mg Tablet PO 324 mg DAILY ANYI Administration Furosemide 40 mg 08/05/20 09:00 Furosemide 40 Mg Tablet PO DAILY ANYI Glucagon 1 mg 08/03/20 20:11 Glucagon For Inj 1 Mg Vial IM PRN PRN Hypoglycemia Protocol Glucose 15 gm 08/03/20 20:11 Glucose Oral Gel 15 Gm Of Glucse In 37.5 Gm Tube PO PRN PRN Hypoglycemia Protocol Dextrose 1,000 mls @ 100 mls/hr 08/03/20 20:11 Dextrose 5% 1,000 Ml IVPB PRN PRN Hypoglycemia Protocol Insulin Aspart 2 - 5 units 08/04/20 08:00 08/05/20 08:00 Insulin Aspart (*Bkc) 100 Units/Ml SUB-Q Not Given TIDWM ANYI Protocol Insulin G
[2020-08-05 12:48] LABS: Glucose Point of Care 103 (65-105)
[2020-08-05 13:29] LABS: Appearance Peritoneal Fluid Cloudy (Clear); Color Peritoneal Fluid Other (Colorless); Nucleated Cells Peritoneal Flu 123 /uL (0-500); Source Peritoneal Fluid Peritoneal Fluid
[2020-08-05 13:30] LABS: Lymphocytes Peritoneal Fluid 45 %; Macrophages Peritoneal Fluid 46 %; Mesothelial Cells Peritoneal Fluid 7 %; Neutrophils Peritoneal Fluid 2 % (0-25); RBC Peritoneal Fluid 6469 /uL (0-100000)
[2020-08-05] MEDS: SPIRONOLACTONE 50 MG TABLET 100 MG PO (13:35)
[2020-08-05] MEDS: FERROUS GLUCONATE 324 MG TABLET PO (13:35)
[2020-08-05] MEDS: ESCITALOPRAM OXALATE 10 MG TABLET PO (13:36)
[2020-08-05] MEDS: PRAVASTATIN SODIUM 20 MG TABLET PO (13:36)
[2020-08-05] MEDS: RIVAROXABAN 20 MG TABLET PO (13:36)
[2020-08-05] MEDS: PANTOPRAZOLE 40 MG TABLET PO ×2 (13:36→22:29)
[2020-08-05] MEDS: POTASSIUM CHLORIDE 20 MEQ TABLET PO (13:53)
[2020-08-05 14:00] VITALS: BP 118/43; PULSE 80; RESP 16; TEMP 36.2; O2SAT 99
[2020-08-05] MEDS: FUROSEMIDE 40 MG TABLET PO (15:12)
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
[2020-08-05] MEDS: INSULIN GLARGINE (*BKC) 100 UNITS/ML 10 UNITS SUB-Q (17:08)
[2020-08-05 17:22] LABS: Glucose Point of Care 188 (65-105)
--- NOTE | 2020-08-05 18:43 | PC.NURSE ---
called this shift. patient did give permission to talk to . updated on patient condition. patient's stated that he had talked to her 2 sons and they decided he would not be able to continue taking care of her at home and stated they would like to place her in a usp setting. Patient's stated patient had been screaming at him and throwing tantrums at home and he was not sure what to do anymore.
[2020-08-05 22:00] VITALS: BP 119/44; PULSE 80; RESP 18; TEMP 36.8; O2SAT 96
[2020-08-05 22:40] LABS: Glucose Point of Care 154 (65-105)
[2020-08-06] MEDS: LACTULOSE 20 GM/30 ML UDC 30 GM PO ×2 (05:45→13:02)
[2020-08-06 05:54] VITALS: BP 136/50; PULSE 82; RESP 16; TEMP 37.1; O2SAT 97
[2020-08-06 07:30] LABS: Basophils Percent Auto 0.3 % (0.2-1.2); Eosinophils Absolute Auto 0.1 K/mm3 (0-0.3); Eosinophils Percent Auto 0.9 % (0-4.4); Hematocrit 31.8 % (37.0-47.0); Immature Granulocyte Absolute 0.05 K/mm3 (0.00-0.031); Immature Granulocyte Percent A 0.7 % (0-0.5); Lymphocytes Absolute Auto 1.01 K/mm3 (0.9-3.2); Lymphocytes Percent Auto 13.4 % (18.3-44.2); Mean Corpuscular HGB Conc 31.4 g/dl (32-36); Mean Corpuscular Volume 85.7 fl (80-100); Mean Platelet Volume 9.8 fl (7.4-10.4); Monocytes Absolute Auto 0.4 K/mm3 (0.1-0.6); Monocytes Percent Auto 5.2 % (2.6-8.5); Neutrophils Percent Auto 79.5 % (45.5-73.1); Platelet Count Result 88 k/mm3 (150-375); Red Blood Count 3.71 M/mm3 (4.2-5.4); Red Cell Distribution Width 20.9 % (11.5-14.5); White Blood Count 7.5 K/mm3 (4.5-10.0)
[2020-08-06 08:08] LABS: Anion Gap 6 mmol/L (8-16); Blood Urea Nitrogen 13 mg/dL (7-17); Carbon Dioxide 28 mmol/L (22-30); Chloride 95 mmol/L (98-107); Estimated CRCL calculation 64 ml/min; Estimated Glomerular Filt Rate > 60; Glucose 154 mg/dL (65-105); Potassium 4.4 mmol/L (3.4-5.0); Sodium 129 mmol/L (137-145)
[2020-08-06] MEDS: ESCITALOPRAM OXALATE 10 MG TABLET PO (08:27)
[2020-08-06] MEDS: FUROSEMIDE 40 MG TABLET PO (08:27)
[2020-08-06] MEDS: FERROUS GLUCONATE 324 MG TABLET PO (08:27)
[2020-08-06] MEDS: PRAVASTATIN SODIUM 20 MG TABLET PO (08:28)
[2020-08-06] MEDS: TOLNAFTATE 1% POWDER 45 GM BTL 1 APPLIC TOPICAL ×2 (08:28→21:33)
[2020-08-06] MEDS: SPIRONOLACTONE 50 MG TABLET 100 MG PO (08:28)
[2020-08-06] MEDS: PANTOPRAZOLE 40 MG TABLET PO ×2 (08:28→21:32)
[2020-08-06] MEDS: RIVAROXABAN 20 MG TABLET PO (08:28)
[2020-08-06] MEDS: INSULIN GLARGINE (*BKC) 100 UNITS/ML 25 UNITS SUB-Q (08:37)
[2020-08-06 08:41] LABS: Glucose Point of Care 137 (65-105)
--- NOTE | 2020-08-06 09:39 | WPDGIPROGNO ---
Progress Note: A&P Assessment and Plan (1) Cirrhosis of liver with ascites: Code(s): K74.60 - Unspecified cirrhosis of liver; R18.8 - Other ascites Status: Acute Assessment and Plan: have another 5 L removed yesterday (10 liters total), will give extra dose of albumin iv will increase her diuretics to 60 mg lasix and aldactone 150mg daily- renal function is ok, may need higher dose of diuretics for which she can see me in office in 2-3 weeks with labs continue with 2g na diet no SBP no contraindications to discharge home by GI standpoint (2) Type 2 diabetes mellitus with diabetic polyneuropathy, with long-term current use of insulin: Code(s): E11.42 - Type 2 diabetes mellitus with diabetic polyneuropathy; Z79.4 - alf (current) use of insulin Status: Acute (3) PAF (paroxysmal atrial fibrillation): Code(s): I48.0 - Paroxysmal atrial fibrillation Status: Acute (4) Depression: Code(s): F32.9 - Major depressive disorder, single episode, unspecified Status: Acute Assessment and Plan: denies more suicidal thoughts but sitter at bedside (5) Hepatic encephalopathy: Code(s): K72.90 - Hepatic failure, unspecified without coma Status: Acute Assessment and Plan: she is awake and alert, lactulose for 2-3 bm/d (6) Thrombocytopenia: Code(s): D69.6 - Thrombocytopenia, unspecified Status: Acute Assessment and Plan: stable, from cirrhosis Subjective Date/time seen: 08/06/20 09:39 Interval history: yesterday removed another 5 L of ascites, feeling less distended and tolerating diet. Review of Systems Review of Systems: All systems reviewed & are unremarkable except as noted in HPI and below Exam Const: General: comfortable and no acute distress Other: chronically ill appearing, obese HENMT: General nose exam: Normal nares present Eyes: General: appearance normal, both eyes and all related structures Neck: Neck: no JVD Resp: Auscultation: clear to auscultation bilaterally Cardio: Rate: regular rate Rhythm: regular rhythm GI: Inspection: non-distended GI Palp: Yes Soft to palpation Percussion: Yes Fluid wave present (improved after paracentesis) Auscultation: normal bowel sounds Skin: General skin exam: no erythema and pallor Neuro: Speech: normal speech Other: pleasant Extrem: General: normal to inspection Psych: Affect: Sad affect present and Anxious affect present Objective Data Vital Signs Vital Signs: Vital Signs - 24 hr 08/05/20 14:00 08/05/20 22:00 08/06/20 05:54 Temperature 97.1 F L 98.2 F 98.7 F Pulse Rate 80 80 82 Respiratory Rate 16 18 16 Blood Pressure 118/43 L 119/44 L 136/50 L Pulse Oximetry 99 96 97 Intake/Output Intake/Output: Intake & Output 08/03/20 08/04/20 08/05/20 08/06/20 23:59 23:59 23:59 23:59 Intake Total 750 1120 500 Output Total 5000 200 5000 Balance -5000 550 -3880 500 Meds/Results Medications: Active Medications Generic Name Dose Route Start Last Admin Trade Name Freq PRN Reason Stop Dose Admin Dextrose 12.5 gm 08/03/20 20:11 Dextrose 50% 25 Gm/50 Ml Syringe IV PUSH PRN PRN Hypoglycemia Protocol Escitalopram Oxalate 10 mg 08/04/20 09:00 08/06/20 08:27 Escitalopram Oxalate 10 Mg Tablet PO 10 mg DAILY ANYI Administration Ferrous Gluconate 324 mg 08/04/20 09:00 08/06/20 08:27 Ferrous Gluconate 324 Mg Tablet PO 324 mg DAILY ANYI Administration Furosemide 60 mg 08/07/20 09:00 Furosemide 20 Mg Tablet PO DAILY ANYI Glucagon 1 mg 08/03/20 20:11 Glucagon For Inj 1 Mg Vial IM PRN PRN Hypoglycemia Protocol Glucose 15 gm 08/03/20 20:11 Glucose Oral Gel 15 Gm Of Glucse In 37.5 Gm Tube PO PRN PRN Hypoglycemia Protocol Dextrose 1,000 mls @ 100 mls/hr 08/03/20 20:11 Dextrose 5% 1,000 Ml IVPB PRN PRN Hypoglycemia Protocol Albumin Human 200 mls
[2020-08-06] MEDS: ALBUMIN HUMAN 25% 25 GM/100 ML 200 ML IVPB (12:13)
[2020-08-06] MEDS: INSULIN ASPART (*BKC) 100 UNITS/ML SUB-Q (12:56)
[2020-08-06 14:00] VITALS: BP 129/53; PULSE 74; RESP 16; TEMP 36.1; O2SAT 100
--- NOTE | 2020-08-06 14:04 | PC.NURSE ---
ordered Albumin Human 25% 25gm/100ml 200ml @ 60ml/hr ONCE, with a comment [id number]. 2 bottles of medication was sent up from pharmacy. Verified dose and amount to be administered with Iris in pharmacy @ 0993. 2nd bottle will not scan due to how medication was ordered.
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
[2020-08-06 17:22] LABS: Glucose Point of Care 211 (65-105)
[2020-08-06 17:22] LABS: Glucose Point of Care 151 (65-105)
[2020-08-06 21:41] LABS: Glucose Point of Care 174 (65-105)
[2020-08-06 22:00] VITALS: BP 117/41; PULSE 76; RESP 16; TEMP 36.2; O2SAT 97
[2020-08-07 06:00] VITALS: BP 111/42; PULSE 78; RESP 16; TEMP 36.6; O2SAT 96
[2020-08-07 07:09] LABS: Anion Gap 6 mmol/L (8-16); Blood Urea Nitrogen 9 mg/dL (7-17); Calcium 7.7 mg/dL (8.4-10.2); Carbon Dioxide 29 mmol/L (22-30); Chloride 94 mmol/L (98-107); Estimated CRCL calculation 73 ml/min; Estimated Glomerular Filt Rate > 60; Glucose 73 mg/dL (65-105); Potassium 3.3 mmol/L (3.4-5.0); Sodium 129 mmol/L (137-145)
[2020-08-07 08:00] VITALS: PULSE 78; RESP 16; O2SAT 96
[2020-08-07] MEDS: PRAVASTATIN SODIUM 20 MG TABLET PO (10:12)
[2020-08-07] MEDS: FUROSEMIDE 20 MG TABLET 60 MG PO (10:12)
[2020-08-07] MEDS: ESCITALOPRAM OXALATE 10 MG TABLET PO (10:13)
[2020-08-07] MEDS: RIVAROXABAN 20 MG TABLET PO (10:13)
[2020-08-07] MEDS: SPIRONOLACTONE 50 MG TABLET 150 MG PO (10:15)
[2020-08-07] MEDS: PANTOPRAZOLE 40 MG TABLET PO (10:16)
[2020-08-07] MEDS: LACTULOSE 20 GM/30 ML UDC 30 GM PO (10:17)
[2020-08-07] MEDS: FERROUS GLUCONATE 324 MG TABLET PO (10:19)
[2020-08-07] MEDS: TOLNAFTATE 1% POWDER 45 GM BTL 1 APPLIC TOPICAL (10:23)
[2020-08-07] MEDS: INSULIN GLARGINE (*BKC) 100 UNITS/ML 25 UNITS SUB-Q (10:23)
[2020-08-07] MEDS: POTASSIUM CHLORIDE 20 MEQ TABLET 40 MEQ PO (10:26)
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
== END 2020-08-07 11:30 | disposition home or self-care (01) | DRG 433 ==
LOC: ANHED 17:26 → ANH3MEDSUR 17:31 → ANHICU 22:57 → ANH3MEDSUR 08-04 17:26
PROVIDERS: Internal Medicine Gastroenterology; Nurse Practitioner; Admitting Provider Internal Medicine; Emergency Provider Emergency Medicine; PCP Family Medicine; Visit Provider Internal Medicine
DX: K74.69 Other cirrhosis of liver (principal); D61.818 Other pancytopenia; R18.8 Other ascites; K72.90 Hepatic failure, unspecified without coma; E11.42 Type 2 diabetes mellitus with diabetic polyneuropathy; I48.0 Paroxysmal atrial fibrillation; G47.33 Obstructive sleep apnea (adult) (pediatric); E78.2 Mixed hyperlipidemia; F41.8 Other specified anxiety disorders; F17.210 Nicotine dependence, cigarettes, uncomplicated; Z79.4 Long term (current) use of insulin; Z86.73 Personal history of transient ischemic attack (TIA), and cerebral infarction without residual deficits
CPT/HCPCS: 36415; 49083; 51701; 80048; 80053; 80307; 81001; 82140; 83036; 83615; 83690; 83735; 84443; 85025; 85610; 87070; 87075; 87076; 87205; 89051; 96365; 96366; 97161; 97165; 99285; A9270; G0378; J1815; P9047

== ENCOUNTER 2020-08-21 20:55 | Inpatient (IN) | payer MEDICARE, SELFPAY ==
--- NOTE | ~2020-08-21 | CT_ITS ---
EXAMINATION: CT brain wo con DATE: 08/22/2020 00:38 INDICATION: Altered mental status TECHNIQUE: Computed tomography (CT) of the head was performed without intravenous contrast. The dose- length product was 605.33 mGy-cm. The mA was adjusted according to patient size. Iterative reconstruc tion technique was employed. COMPARISON: CT dated 07/03/2020 FINDINGS: No acute intracranial hemorrhage, infarction, mass or mass effect. Generalized atrophy. The re are scattered moderate periventricular and subcortical white matter changes, most likely related t o small vessel ischemic disease (microangiopathy). Small left mastoid effusion. Chronic right sphenoi d sinusitis. There is intracranial atherosclerosis. No ventriculomegaly or midline shift. IMPRESSION: 1. No acute intracranial abnormality. 2: Chronic age-related findings. Reviewed, dictated and finalized at location A. UTER TRAINER
--- NOTE | ~2020-08-21 | US_ITS ---
EXAMINATION: US paracentesis abd w/image DATE: 08/22/2020 13:14 INDICATION: Ascites. TECHNIQUE: The procedure and its risks, benefits, and alternatives were discussed with the patient. P otential risks discussed included bleeding and infection. The skin was prepped and draped in sterile fashion. 1% lidocaine was used for local anesthesia. Under ultrasound guidance, a 5 Fr catheter with trochar was advanced into the ascites in the left lower quadrant. Fluid was aspirated. The catheter w as removed, and a dressing was applied. There were no immediate complications. FINDINGS: Ultrasound images demonstrate ascites and the catheter within the fluid. IMPRESSION: 1. Successful ultrasound-guided paracentesis yielding 5000 mL of clear, yellow fluid. Reviewed, dictated and finalized at location A. ER FIREMAN
--- NOTE | ~2020-08-21 | CT_ITS ---
EXAMINATION: CT abdomen pelvis wo con EXAM DATE: 08/21/2020 23:39 INDICATION: Abdominal distention. Cirrhosis. Nausea and vomiting, diarrhea. TECHNIQUE: Spiral CT of the abdomen and pelvis was performed without contrast. Axial, coronal and s agittal images were reviewed. The dose-length product (DLP) for this examination was 1220.94 mGy-cm. The exposure was tailored according to patient size (auto mA exposure control), and iterative recon struction (ASIR) was used as additional dose reduction technique. Comparison is made to prior examina tion from 06/29/2020. FINDINGS: Severely atrophic and nodular liver, with enlarged portal vein consistent with portal hyper tension. Spleen is normal in size. Adrenal glands are unremarkable. Gallbladder not identified, rush ent likely has had cholecystectomy. There is no nephrolithiasis or hydronephrosis. The bladder is unremarkable. There is no retroperitoneal or pelvic lymphadenopathy. The appendix is not positively visualized. There is no pericecal inflammatory change to suggest appe ndicitis. There is moderate descending and sigmoid colonic colonic diverticulosis. Sensitivity for di verticulitis is diminished due to the ascites. The stomach and small bowel are unremarkable. There i s expected amount of colonic stool. No free intraperitoneal gas. The heart is normal in size. Th ere are no pericardial or pleural effusions. The lung bases are unremarkable. There are no osteobla stic or osteolytic lesions identified. IMPRESSION: 1. Cirrhosis, portal hypertension and large amount of ascites unchanged. 2. Moderate colonic diverticulosis. Sensitivity for diverticulitis decreased due to the ascites but no definite acute intra-abdominal findings. 3. Unchanged right adnexal cystic mass, differential diagnosis including endometriomas, cystic ovari an neoplasm (most likely benign such as cystadenoma or teratoma). Reviewed, dictated and finalized at location G. E OFFICER IMPRESSION: 1. Cirrhosis, portal hypertension and large amount of ascites unchanged. 2. Moderate colonic diverticulosis. Sensitivity for diverticulitis decreased d ue to the ascites but no definite acute intra-abdominal findings. 3. Unchanged right adnexal cystic mass, differential diagnosis including endom etriomas, cystic ovarian neoplasm (most likely benign such as cystadenoma or te ratoma).
[2020-08-21 21:00] VITALS: BP 126/46; PULSE 75; RESP 16; TEMP 36.3; O2SAT 98
[2020-08-21 21:33] LABS: Basophils Percent Auto 0.2 % (0.2-1.2); Eosinophils Percent Auto 0.4 % (0-4.4); Hemoglobin 10.3 g/dL (12.0-15.0); Immature Granulocyte Absolute 0.15 K/mm3 (0.00-0.031); Immature Granulocyte Percent A 1.5 % (0-0.5); Lymphocytes Absolute Auto 0.89 K/mm3 (0.9-3.2); Lymphocytes Percent Auto 8.8 % (18.3-44.2); Mean Corpuscular HGB Conc 33.2 g/dl (32-36); Mean Corpuscular Hemoglobin 29.1 pg (26-34); Mean Corpuscular Volume 87.6 fl (80-100); Mean Platelet Volume 9.2 fl (7.4-10.4); Monocytes Absolute Auto 0.5 K/mm3 (0.1-0.6); Monocytes Percent Auto 4.6 % (2.6-8.5); Neutrophils Absolute Auto 8.6 K/mm3 (1.3-6.7); Neutrophils Percent Auto 84.5 % (45.5-73.1); Platelet Count Result 112 k/mm3 (150-375); Red Blood Count 3.54 M/mm3 (4.2-5.4); Red Cell Distribution Width 20.8 % (11.5-14.5); White Blood Count 10.1 K/mm3 (4.5-10.0)
--- NOTE | 2020-08-21 21:39 | ED.ABDPAIN ---
HPI - Abdominal Pain General Chief Complaint: Abdominal Pain Stated Complaint: abd pain Time Seen by Provider: 08/21/20 21:15 Source: patient Mode of arrival: ambulatory Limitations: no limitations History of Present Illness HPI narrative: Patient 69-year-old female complaining of increasing abdominal distention that started this past week. Patient states that she has history of liver cirrhosis and just had her abdomen drained approximately 3 weeks ago. Patient denies any abdominal pain, chest pain, shortness of breath, fever, chills, nausea, vomiting or any urinary symptoms. Related Data Home Medications Medication Instructions Recorded Confirmed escitalopram oxalate 20 mg tablet 10 mg PO DAILY 08/05/19 08/03/20 metformin 1,000 mg tablet 1,000 mg PO BID 08/05/19 08/03/20 pravastatin 20 mg tablet 20 mg PO DAILY 08/05/19 08/03/20 rivaroxaban 20 mg tablet 20 mg PO DAILY 08/05/19 08/03/20 ferrous gluconate 324 mg PO DAILY 08/03/20 08/03/20 lactulose 45 ml PO Q8-10H 08/03/20 08/03/20 Allergies Allergy/AdvReac Type Severity Reaction Status Date / Time No Known Allergies Allergy Verified 08/21/20 21:05 Review of Systems Review of Systems: All systems reviewed & are unremarkable except as noted in HPI and below Constitutional: Constitutional: Denies body ache(s), Denies chills, Denies excessive sweating, Denies fatigue, Denies fever(s), Denies headache(s), Denies lethargy, Denies malaise, Denies weakness and Denies weight loss Eyes: Eyes: Denies blurry vision, Denies change in vision and Denies loss of vision ENT: Denies dizziness, Denies ear discharge, Denies headache(s), Denies lip swelling, Denies epistaxis, Denies nasal congestion, Denies neck pain, Denies throat swelling and Denies tongue swelling Cardiovascular: Cardiovascular: Denies chest pain, Denies chest pain at rest, Denies chest pain with activity, Denies diaphoresis, Denies rapid heart rate, Denies edema, Denies irregular heart rhythm, Denies lightheadedness, Denies palpitations, Denies dyspnea and Denies dyspnea on exertion Respiratory: Respiratory: Denies chest congestion, Denies cough, Denies hemoptysis, Denies dyspnea and Denies dyspnea on exertion Gastrointestinal: Gastrointestinal: Denies abdominal pain, Denies melena, Denies hematochezia, Denies diarrhea, Denies nausea, Denies vomiting and Denies hematemesis Musculoskeletal: Musculoskeletal: Denies abnormal gait, Denies deformity, Denies joint swelling, Denies limited range of motion, Denies neck pain and Denies numbness Neurologic: Denies Abnormal speech present, Denies abnormal gait, Denies confusion, Denies dizziness, Denies headache(s), Denies focal weakness, Denies loss of vision, Denies numbness, Denies Other visual disturbances, Denies Sensory deficit (Neuro) and Denies weakness Psychiatric: Psychiatric: Denies confusion, Denies depression, Denies auditory hallucinations, Denies homicidal ideation and Denies suicidal ideation Endocrine: Endocrine: Denies cold intolerance, Denies excessive sweating, Denies fatigue, Denies heat intolerance and Denies palpitations Hematologic/Lymphatic: Hematologic/Lymphatic: Denies easy bleeding and Denies easy bruising Allergic/Immunologic: Allergic/Immunologic: Denies lip swelling, Denies throat swelling and Denies tongue swelling [facility] Past Medical History Medical History (Updated 08/22/20 @ 00:21 by Tushar Dockery MD) Acute kidney failure Acute on chronic anemia Chronic pain of left knee Cirrhosis of liver with ascites Coagulopathy Depression Essential (primary) hypertension Hepatic encephalopathy History of CVA (cerebrovascular accident) PAF (paroxysmal atrial fibrillation) Type 2 diabetes mellitus with diabetic polyneuropathy, with long-term current use of insulin Surgical History Surgical History S/P knee replacement Family History Family History (Reviewed 08/03/20 @ 20:04 by Glendy Arias
[2020-08-21 21:45] LABS: Alanine Aminotransferase 20 U/L (4-35); Albumin Level 3.3 g/dL (3.5-5.1); Alkaline Phosphatase 111 U/L (38-126); Anion Gap 9 mmol/L (8-16); Aspartate Amino Transferase 49 U/L (14-36); Bilirubin,Total 1.7 mg/dL (0.2-1.3); Blood Urea Nitrogen 25 mg/dL (7-17); Calcium 8.6 mg/dL (8.4-10.2); Carbon Dioxide 25 mmol/L (22-30); Chloride 93 mmol/L (98-107); Estimated CRCL calculation 59 ml/min; Estimated Glomerular Filt Rate > 60; Glucose 153 mg/dL (65-105); Lipase 40 U/L (23-300); Potassium 4.5 mmol/L (3.4-5.0); Sodium 127 mmol/L (137-145)
[2020-08-21 22:06] LABS: Ammonia 65 umol/L (9-30)
[2020-08-21 22:30] LABS: INR 1.3; Prothrombin Time 16.6 Seconds (11.1-14.7)
[2020-08-21 22:30] LABS: Lactic Acid Reflex 4.8 mmol/L (0.7-2.1)
[2020-08-21 22:31] LABS: Partial Thromboplastin Time 39.3 SECONDS (22.3-36.8)
[2020-08-21] MEDS: LACTULOSE 20 GM/30 ML UDC PO (23:42)
[2020-08-21] MEDS: metroNIDAZOLE 500 MG/ISO 100ML 500 MG/100 ML BAG 100 MG IVPB (23:43)
[2020-08-22 00:02] VITALS: BP 128/51; PULSE 82; RESP 18; TEMP 36.6; O2SAT 97
[2020-08-22 01:14] LABS: Reflex Lactic Acid Yes or No Add Lactic
[2020-08-22 01:29] VITALS: BP 124/74; PULSE 78; RESP 16; TEMP 36.4; O2SAT 97
[2020-08-22 01:30] VITALS: BP 124/49; PULSE 71; RESP 20; TEMP 36.2; O2SAT 100
--- NOTE | 2020-08-22 01:30 | PC.NURSE ---
This patient, Taryn Estevez, was admitted to 3 Med Surg Room 331-01. Patient/family oriented to hospital policies and general routines including ID bracelet, bed and alarms, visiting hours, pain management, procedures, bathroom and other care routines, personal items, smoking policy, room service/diet, and visiting hours. Information on how to activate the Rapid Response Team has been discussed. Patient/Family are encouraged to report perceived risks to care and to ask questions if they do not understand what they are told or what they should do.
[2020-08-22 01:38] VITALS: BMI 33.9
[2020-08-22 06:00] VITALS: BP 137/55; PULSE 73; RESP 20; TEMP 36.9; O2SAT 98
[2020-08-22 08:39] LABS: Glucose Point of Care 108 (65-105)
[2020-08-22 12:40] LABS: Glucose Point of Care 107 (65-105)
--- NOTE | 2020-08-22 13:00 | PC.NURSE ---
To US for paracentesis per stretcher.
--- NOTE | 2020-08-22 13:35 | PC.NURSE ---
Returned to room from US, awake and alert, bandaid present to left lower quad abd, d/i.
[2020-08-22 14:00] VITALS: BP 109/38; PULSE 72; RESP 16; TEMP 36.2; O2SAT 98
--- NOTE | 2020-08-22 15:18 | PM.SD ---
Same Day Admit/Disch: HPI History of Present Illness Chief complaint: ABDOMINAL DISTENSION, HEPATIC ENCEPHALOPATHY Narrative: 69-year-old female complaining of increasing abdominal distention that started this past week, history of liver cirrhosis. States she fell on her chair because of the weight in her abdomen. Pt has a history of DM, AF, HLD, Pt feels better after paracentesis today, pt 5 liters of ascitic fluid removed. And is feeling better no confusion, oriented x3. [place] [id number]. PMFSH Past Medical History Medical History Acute kidney failure Acute on chronic anemia Chronic pain of left knee Cirrhosis of liver with ascites Coagulopathy Depression Essential (primary) hypertension Hepatic encephalopathy History of CVA (cerebrovascular accident) PAF (paroxysmal atrial fibrillation) Type 2 diabetes mellitus with diabetic polyneuropathy, with long-term current use of insulin Surgical History Surgical History S/P knee replacement Family History Family History Sibling Carcinoma of colon Patient's brother is Mother Family history of lung cancer Patient's mother is Father Family history of chronic obstructive pulmonary disease Patient's father is Social History Social History Social History: the patient lives at home with her . They have been together 19 years. 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 She has 2 children but not with her current . She is retired she retired at the age of 63. She said she still continues to smoke some cigarettes Smoking packs per day: 0.5 Smoking cigarettes per day: 10.0 Years smoked: 20 Smoking pack-years: 10.00 Smoking status: Current every day smoker Tobacco type: cigarettes Smoking end date: 08/18/13 Alcohol intake: former Substance use: never Gender identity (if verbalized by the patient): Female Spiritual care concerns: No Same Day Admit/Disch: Med Pre-admit Medications Home Medications Medication Instructions Recorded Confirmed Type escitalopram oxalate 20 mg tablet 10 mg PO DAILY 08/05/19 08/22/20 History metformin 1,000 mg tablet 1,000 mg PO BID 08/05/19 08/22/20 History pravastatin 20 mg tablet 20 mg PO DAILY 08/05/19 08/22/20 History rivaroxaban 20 mg tablet 20 mg PO DAILY 08/05/19 08/22/20 History pantoprazole 40 mg PO Q12HR 30 Days #60 tablet 07/06/20 08/22/20 Rx ferrous gluconate 324 mg PO DAILY 08/03/20 08/22/20 History lactulose 45 ml PO Q8-10H 08/03/20 08/22/20 History Lantus U-100 Insulin 25 units SUBCUT DAILY 30 Days #7.5 08/07/20 08/22/20 Rx ml furosemide 60 mg PO DAILY #100 tablet 08/07/20 08/22/20 Rx spironolactone [Aldactone] 150 mg PO QAM #100 tablet 08/07/20 08/22/20 Rx lactulose 10 g PO DAILY #600 ml 08/22/20 Rx Exam Const: General: well developed Nutritional Appearance: well nourished HENMT: Head: normocephalic Eyes: General: appearance normal, both eyes and all related structures Pupils: Equal, round and reactive pupils present Neck: Neck: supple Chest: Chest palpation & inspection: normal inspection of the chest Resp: Effort & Inspection: normal respiratory effort Auscultation: clear to auscultation bilaterally Cardio: Jugular venous distension: no JVD Rhythm: regular rhythm Heart sounds: S1 normal heart sound present and S2 normal heart sound present GI: Inspection: other (Ascites gross) Skin: General skin exam: normal color and dry skin Neuro: Cranial nerves: Yes CN's II-XII intact bilaterally and Yes Equal, round and reactive pupils present Cognition (Neuro): normal cognition Speech: normal speech Motor exam (neuro): 5/5 motor
== END 2020-08-22 17:00 | disposition home or self-care (01) | DRG 433 ==
LOC: ANHED 08-22 00:36 → ANH3MEDSUR 08-22 02:16
PROVIDERS: Emergency Medicine; Admitting Provider Family Medicine; Emergency Provider Emergency Medicine; PCP Family Medicine; Visit Provider Family Medicine
DX: K74.60 Unspecified cirrhosis of liver (principal); R18.8 Other ascites; I48.20 Chronic atrial fibrillation, unspecified; K72.90 Hepatic failure, unspecified without coma; D64.9 Anemia, unspecified; E11.42 Type 2 diabetes mellitus with diabetic polyneuropathy; I10 Essential (primary) hypertension; F17.210 Nicotine dependence, cigarettes, uncomplicated; Z86.73 Personal history of transient ischemic attack (TIA), and cerebral infarction without residual deficits; Z79.01 Long term (current) use of anticoagulants; Z79.4 Long term (current) use of insulin
CPT/HCPCS: 36415; 49083; 51701; 70450; 74176; 80053; 82140; 83605; 83690; 85025; 85610; 85730; 96365; 96368; 99285; A9270; J0696

== ENCOUNTER 2020-08-26 18:04 | Inpatient (IN) | payer MEDICARE, SELFPAY ==
[2020-08-26] VITALS (48 sets, daily range): BP systolic 82–107; BP diastolic 33–85; PULSE 76–119; RESP 14–27; TEMP 36.1–36.8; O2SAT 93–100
--- NOTE | ~2020-08-26 | US_ITS ---
EXAMINATION: US paracentesis abd w/image DATE: 08/28/2020 12:42 INDICATION: Ascites. TECHNIQUE: The procedure and its risks, benefits, and alternatives were discussed with the patient. P otential risks discussed included bleeding and infection. The skin was prepped and draped in sterile fashion. 1% lidocaine was used for local anesthesia. Under ultrasound guidance, a 5 Fr catheter with trochar was advanced into the ascites in the right lower quadrant. Fluid was aspirated. The catheter was removed, and a dressing was applied. There were no immediate complications. FINDINGS: Ultrasound images demonstrate ascites and the catheter within the fluid. IMPRESSION: 1. Successful ultrasound-guided paracentesis yielding 5000 mL of juan manuel-colored fluid. Reviewed, dictated and finalized at location A. SALES AUDIT CLERK
--- NOTE | ~2020-08-26 | CT_ITS ---
EXAMINATION: CT chest abdomen pelvis wo con DATE: 08/26/2020 20:46 INDICATION: Cough. Hematemesis. TECHNIQUE: Computed tomography (CT) of the chest, abdomen, and pelvis was performed without intraveno us contrast. Automated exposure control and iterative reconstruction technique were employed. The dos e-length product was 1621.44 mGy-cm. COMPARISON: CT abdomen and pelvis 08/21/2020, 06/29/20 FINDINGS: CHEST CT: The lungs demonstrate motion artifact and mild atelectasis. There is smooth septal thickening in the lungs, consistent with mild pulmonary edema. No pleural effusion. The heart size is normal. There are coronary artery calcifications. No pericardial effusion. There is mild wall thickening of the distal esophagus. There is a left shoulder arthroplasty. There is mild thoracic spondylosis. ABDOMEN/PELVIS CT: The liver demonstrates a nodular surface contour, consistent with cirrhosis. There is a 14 mm cyst in right hepatic lobe. The spleen is normal in size. The gallbladder is absent. The pancreas, adrenal g lands, and kidneys are normal. There is diverticulosis of the colon without evidence of diverticuliti s. There are no dilated loops of bowel. The appendix is not visualized. There is a 4.0 cm cystic mass in right ovary with thin septation. There is a large volume of ascites. There is a mildly enlarged g astrohepatic lymph node, likely reactive. There is moderate lumbar spondylosis. IMPRESSION: 1. Cirrhosis of the liver. 2. Large volume of ascites. 3. Mild pulmonary edema. 4. Mild wall thickening of the distal esophagus, consistent with edema versus esophagitis. 5. 4.0 cm cystic mass of the right ovary, likely benign. Pelvis ultrasound is recommended in one year . Reviewed, dictated and finalized at location A. WASHER PREPARER IMPRESSION: 1. Cirrhosis of the liver. 2. Large volume of ascites. 3. Mild pulmonary edema. 4. Mild wall thickening of the distal esophagus, consistent with edema versus e sophagitis. 5. 4.0 cm cystic mass of the right ovary, likely benign. Pelvis ultrasound is r ecommended in one year.
--- NOTE | ~2020-08-26 | CT_ITS ---
EXAMINATION: CT brain wo con INDICATION: Altered mental status, confusion COMPARISON: 08/22/2020 TECHNIQUE: Standard unenhanced head CT. The dose-length product (DLP) was 1059.33 mGy-cm. The mA was adjusted according to patient size. Iterative reconstruction technique was employed. FINDINGS: There is no acute intraparenchymal hemorrhage. No evidence of mass lesion. No evidence of a cute infarction. There is mild periventricular and subcortical hypodensity probably related to small vessel ischemic disease. There is mild prominence of the sulci and ventricles related to cerebral atr ophy. Intracranial calcified cerebral atherosclerosis is noted. There are no extra-axial collections. There is no mass effect or midline shift. The orbits and soft tissues are unremarkable. There is ch ronic right sphenoid sinusitis. IMPRESSION: 1. No acute intracranial abnormality. 2. Age related findings. Reviewed, dictated and finalized at location A. INTELLIGENCE OFFICER
--- NOTE | 2020-08-26 18:10 | ECG_ITS ---
Measurements Intervals [place] Rate: 90 P: VA: 0 QRS: 11 QRSD: 79 T: 66 QT: 374 QTc: 458 Interpretive Statements WANDERING PACEMAKER ATRIAL PREMATURE COMPLEXES BORDERLINE ST-T WAVE ABNORMALITY- ANTEROLAT/HIGH LAT LEADS BASELINE ARTIFACT- III, V1, V4-V6 ABNORMAL ECG Electronically Signed On 08-27-2020 7:36:54 LEAD TELLER by Kenneth Hernández D.O.
[2020-08-26] MEDS: LACTATED RINGERS 1,000 ML 999 ML IV CONT (18:18)
--- NOTE | 2020-08-26 18:31 | ED.GIBLEED ---
HPI - GI Bleed General Chief complaint: Nausea/Vomiting/Diarrhea Stated complaint: VOMITING BLOOD Time Seen by Provider: 08/26/20 18:13 Source: patient Mode of arrival: ambulatory Limitations: no limitations History of Present Illness HPI Narrative: Patient 69-year-old female complaining of vomiting bright red blood x3 episodes started prior to arrival. Patient denies any chest pain, shortness of breath, abdominal pain, melena or hematochezia. Patient has a history of liver cirrhosis. Patient states that she was on Xarelto but did take her off of it last time she was admitted. Patient not on any antiplatelet or any oral anticoagulants currently. Related Data Home Medications Medication Instructions Recorded Confirmed escitalopram oxalate 20 mg tablet 10 mg PO DAILY 08/05/19 08/22/20 metformin 1,000 mg tablet 1,000 mg PO BID 08/05/19 08/22/20 pravastatin 20 mg tablet 20 mg PO DAILY 08/05/19 08/22/20 rivaroxaban 20 mg tablet 20 mg PO DAILY 08/05/19 08/22/20 ferrous gluconate 324 mg PO DAILY 08/03/20 08/22/20 lactulose 45 ml PO Q8-10H 08/03/20 08/22/20 Allergies Allergy/AdvReac Type Severity Reaction Status Date / Time No Known Allergies Allergy Verified 08/26/20 18:06 Review of Systems Review of Systems: All systems reviewed & are unremarkable except as noted in HPI and below Constitutional: Constitutional: Denies body ache(s), Denies chills, Denies excessive sweating, Denies fatigue, Denies fever(s), Denies headache(s), Denies lethargy, Denies malaise, Denies weakness and Denies weight loss Eyes: Eyes: Denies blurry vision, Denies change in vision and Denies loss of vision ENT: Denies dizziness, Denies ear discharge, Denies headache(s), Denies lip swelling, Denies epistaxis, Denies nasal congestion, Denies neck pain, Denies throat swelling and Denies tongue swelling Cardiovascular: Cardiovascular: Denies chest pain, Denies chest pain at rest, Denies chest pain with activity, Denies diaphoresis, Denies rapid heart rate, Denies edema, Denies irregular heart rhythm, Denies lightheadedness, Denies palpitations, Denies dyspnea and Denies dyspnea on exertion Respiratory: Respiratory: Denies chest congestion, Denies cough, Denies hemoptysis, Denies dyspnea and Denies dyspnea on exertion Gastrointestinal: Gastrointestinal: Denies abdominal pain, Denies melena, Denies hematochezia, Denies diarrhea, Denies nausea and Denies vomiting Musculoskeletal: Musculoskeletal: Denies abnormal gait, Denies deformity, Denies joint swelling, Denies limited range of motion, Denies neck pain and Denies numbness Neurologic: Denies Abnormal speech present, Denies abnormal gait, Denies confusion, Denies dizziness, Denies headache(s), Denies focal weakness, Denies loss of vision, Denies numbness, Denies Other visual disturbances, Denies Sensory deficit (Neuro) and Denies weakness Psychiatric: Psychiatric: Denies confusion, Denies depression, Denies auditory hallucinations, Denies homicidal ideation and Denies suicidal ideation Endocrine: Endocrine: Denies cold intolerance, Denies excessive sweating, Denies fatigue, Denies heat intolerance and Denies palpitations Hematologic/Lymphatic: Hematologic/Lymphatic: Denies easy bleeding and Denies easy bruising Allergic/Immunologic: Allergic/Immunologic: Denies lip swelling, Denies throat swelling and Denies tongue swelling PMFSH Past Medical History Medical History Acute kidney failure Acute on chronic anemia Chronic pain of left knee Cirrhosis of liver with ascites Coagulopathy Depression Essential (primary) hypertension Hepatic encephalopathy History of CVA (cerebrovascular accident) PAF (paroxysmal atrial fibrillation) Type 2 diabetes mellitus with diabetic polyneuropathy, with long-term current use of insulin Surgical History Surgical History S/P knee replacement Family History Family
[2020-08-26 18:35] LABS: Basophils Absolute Auto 0.1 K/mm3 (0.0-0.1); Basophils Percent Auto 0.3 % (0.2-1.2); Eosinophils Percent Auto 0.1 % (0-4.4); Hematocrit 22.7 % (37.0-47.0); Hemoglobin 7.4 g/dL (12.0-15.0); Immature Granulocyte Absolute 0.67 K/mm3 (0.00-0.031); Lymphocytes Absolute Auto 2.76 K/mm3 (0.9-3.2); Lymphocytes Percent Auto 12.5 % (18.3-44.2); Mean Corpuscular HGB Conc 32.6 g/dl (32-36); Mean Corpuscular Hemoglobin 29.4 pg (26-34); Mean Corpuscular Volume 90.1 fl (80-100); Mean Platelet Volume 10.7 fl (7.4-10.4); Monocytes Absolute Auto 0.8 K/mm3 (0.1-0.6); Monocytes Percent Auto 3.5 % (2.6-8.5); Neutrophils Absolute Auto 17.9 K/mm3 (1.3-6.7); Neutrophils Percent Auto 80.6 % (45.5-73.1); Platelet Count Result 211 k/mm3 (150-375); Red Blood Count 2.52 M/mm3 (4.2-5.4); Red Cell Distribution Width 20.4 % (11.5-14.5); White Blood Count 22.2 K/mm3 (4.5-10.0)
--- NOTE | 2020-08-26 18:38 | PC.NURSE ---
Consent to give blood products obtained.
[2020-08-26 18:45] LABS: INR 1.7; Prothrombin Time 20.1 Seconds (11.1-14.7)
[2020-08-26 18:47] LABS: Platelet Estimate Adequate (Adequate)
[2020-08-26 18:48] LABS: Ovalocytes 1+ (NORMAL)
[2020-08-26 18:49] LABS: Albumin Level 2.6 g/dL (3.5-5.1); Alkaline Phosphatase 64 U/L (38-126); Anion Gap 17 mmol/L (8-16); Aspartate Amino Transferase 38 U/L (14-36); Bilirubin,Total 1.7 mg/dL (0.2-1.3); Blood Urea Nitrogen 55 mg/dL (7-17); Calcium 8.1 mg/dL (8.4-10.2); Carbon Dioxide 14 mmol/L (22-30); Chloride 89 mmol/L (98-107); Estimated CRCL calculation 35 ml/min; Estimated Glomerular Filt Rate 40; Glucose 168 mg/dL (65-105); Sodium 120 mmol/L (137-145)
[2020-08-26] MEDS: PANTOPRAZOLE SODIUM IV 40 MG VIAL 80 MG IV PUSH (18:56)
[2020-08-26 19:00] LABS: Alanine Aminotransferase 25 U/L (4-35)
[2020-08-26] MEDS: OCTREOTIDE ACETATE 50 MCG/ML VIAL IV PUSH (19:12)
[2020-08-26] MEDS: ONDANSETRON INJ 4 MG/2 ML VIAL IV PUSH (19:20)
[2020-08-26] MEDS: SODIUM CHLORIDE 0.9% IV 250 ML 30 ML IV CONT (19:56)
--- NOTE | 2020-08-26 20:10 | PC.NURSE ---
hold on placing NG due to resistance in placing tube per Dr. Dockery.
[2020-08-26] MEDS: TUBING, BLOOD PLUM PUMP TUBING 1 EACH XX ×2 (20:19→22:53)
[2020-08-27] VITALS (26 sets, daily range): BP systolic 92–123; BP diastolic 34–63; PULSE 75–89; RESP 14–20; TEMP 35.3–37; O2SAT 93–100; BMI 31.9
[2020-08-27] MEDS: ONDANSETRON INJ 4 MG/2 ML VIAL IV PUSH ×2 (00:33→21:41)
--- NOTE | 2020-08-27 01:11 | ADMGEN ---
This patient, Taryn Estevez, was admitted to IMU Room 204-01. Patient/family oriented to hospital policies and general routines including ID bracelet, bed and alarms, visiting hours, pain management, procedures, bathroom and other care routines, personal items, smoking policy, room service/diet, and visiting hours. Information on how to activate the Rapid Response Team has been discussed. Patient/Family are encouraged to report perceived risks to care and to ask questions if they do not understand what they are told or what they should do.
[2020-08-27 05:27] LABS: Hematocrit 26.7 % (37.0-47.0); Hemoglobin 9.1 g/dL (12.0-15.0); Mean Corpuscular HGB Conc 34.1 g/dl (32-36); Mean Corpuscular Hemoglobin 29.9 pg (26-34); Mean Corpuscular Volume 87.8 fl (80-100); Mean Platelet Volume 10.3 fl (7.4-10.4); Platelet Count Result 143 k/mm3 (150-375); Red Blood Count 3.04 M/mm3 (4.2-5.4); White Blood Count 21.1 K/mm3 (4.5-10.0)
[2020-08-27 05:48] LABS: Anion Gap 10 mmol/L (8-16); Blood Urea Nitrogen 64 mg/dL (7-17); Calcium 7.9 mg/dL (8.4-10.2); Carbon Dioxide 20 mmol/L (22-30); Chloride 90 mmol/L (98-107); Estimated CRCL calculation 30 ml/min; Estimated Glomerular Filt Rate 32; Glucose 175 mg/dL (65-105); Sodium 120 mmol/L (137-145)
[2020-08-27 07:54] LABS: Glucose Point of Care 189 (65-105)
--- NOTE | 2020-08-27 08:26 | PM.IMHP ---
H&P: HPI History of Present Illness Date/Time: 08/27/20 06:15 Chief Complaint: Vomiting blood Narrative: Taryn Estevez is a 69 year old female with a past medical history of cirrhosis, duodenal ulcers, gastritis, esophagitis who presented to the ER after having 3 episodes of hematemesis at home. The patient was recently hospitalized August 22, 2019 at which time her Xarelto was placed on hold. She has been off her Xarelto since that time. Despite being off for Xarelto shaved suddenly developed nausea and vomiting and had immediate emesis of bright red blood. She reported that the blood filled out the trash can. She reports that she has been compliant with her home Protonix q.12 hours. Patient is a relatively reasonable historian but then states that she wants to go back on blood thinners to help reduce her risk of stroke. I tried to explain to her that given her acute bleeding that this was not advisable at this time. The patient had 1 episode of hematemesis in the ER there was a small amount of blood. She has not had recurrent hematemesis after administration of the octreotide and IV Protonix in the ER. Abdominal pain. She reports that her last bowel movement a couple of days ago was dark in color. She denies any hematochezia. She has not noticed any hematuria. On presentation to the ER the patient was mildly hypotensive but this improved with IV fluid administration. The patient is a fair historian. Review of Systems Review of Systems: Narrative: 12 systems were reviewed with pertinent positives and negatives per HPI. Except as documented in the HPI, all other systems were reviewed and are negative. [facility] Past Medical History Medical History (Updated 08/27/20 @ 08:45 by Ananya Dick DO) Acute on chronic anemia Chronic pain of left knee Cirrhosis of liver with ascites Likely due to alcohol use Coagulopathy Depression Essential (primary) hypertension Hearing loss Hepatic encephalopathy History of CVA (cerebrovascular accident) PAF (paroxysmal atrial fibrillation) Type 2 diabetes mellitus with diabetic polyneuropathy, with long-term current use of insulin Surgical History Surgical History (Updated 08/27/20 @ 08:30 by Ananya Dick DO) History of esophagogastroduodenoscopy (EGD) 07/04/2020 demonstrated unspecified esophagitis, gastritis, duodenitis and unspecified duodenal ulcers exam performed by Dr. Ridley S/P knee replacement Family History Family History Sibling Carcinoma of colon Patient's brother is Mother Patient's mother is Lung cancer Father Patient's father is COPD (chronic obstructive pulmonary disease) Social History Social History (Updated 08/27/20 @ 08:38 by Ananya Dick DO) Social History: She lives at home with her of 19 years. Her is a durable power litigation attorney for healthcare and she is a full code. She has 2 children but not with her current . She is retired she retired at the age of 63. She said she still continues to smoke some cigarettes. Primary care physician: Dr. Jared Rosenberg Smoking packs per day: 0.5 Smoking cigarettes per day: 10.0 Years smoked: 55 Smoking pack-years: 27.50 Smoking status: Current every day smoker Tobacco type: cigarettes Second hand tobacco smoke exposure: No Alcohol intake: former Alcohol use details: She has history of alcoholism but denies any recent alcohol use. Substance use: never Gender identity (if verbalized by the patient): Female Spiritual care concerns: No Meds Home Medications and Allergies Home Medications Medication Instructions Recorded Confirmed Type escitalopram oxalate 20 mg tablet 10 mg PO DAILY 08/05/19 08/27/20 History metformin 1,000 mg tablet 1,000 mg PO BID 08/05/19 08/27/20 History pravastatin 20 mg tablet 20 mg PO DAILY 08/05/19 08/27/20 History rivaroxaban 2
[2020-08-27 10:46] LABS: Hematocrit 26.9 % (37.0-47.0); Hemoglobin 9.4 g/dL (12.0-15.0)
[2020-08-27 10:58] LABS: INR 1.7
[2020-08-27 11:36] LABS: Thyroid Stimulating Hormone Reflex 0.613 uIU/mL (0.465-4.68)
[2020-08-27 12:42] LABS: Anion Gap 10 mmol/L (8-16); Blood Urea Nitrogen 71 mg/dL (7-17); Calcium 8.2 mg/dL (8.4-10.2); Carbon Dioxide 22 mmol/L (22-30); Chloride 88 mmol/L (98-107); Estimated CRCL calculation 26 ml/min; Estimated Glomerular Filt Rate 28; Glucose 154 mg/dL (65-105); Potassium 4.6 mmol/L (3.4-5.0); Sodium 120 mmol/L (137-145)
[2020-08-27] MEDS: SODIUM CHLORIDE 0.9% IV 1,000 ML 100 ML IV CONT (12:49)
[2020-08-27] MEDS: SODIUM CHLORIDE 0.9% IV 500 ML IV CONT (12:49)
[2020-08-27 12:51] LABS: Glucose Point of Care 154 (65-105)
--- NOTE | 2020-08-27 13:18 | WPDGICN ---
Assessment and Plan Assessment and plan (1) Acute upper gastrointestinal bleeding: Code(s): K92.2 - Gastrointestinal hemorrhage, unspecified Status: Acute Assessment and Plan: will proceed with egd tomorrow continue with iv protonix and octreotide trend hb and discontinue her blood thinner (apparently on xarelto at home) will start antibiotics because history of cirrhosis and GIB (2) Hematemesis: Qualifiers: Nausea presence: with nausea Qualified Code(s): K92.0 - Hematemesis Code(s): K92.0 - Hematemesis Status: Acute Assessment and Plan: egd tomorrow (3) Anemia due to acute blood loss: Code(s): D62 - Acute posthemorrhagic anemia Status: Acute Assessment and Plan: continue to monitor (4) Ascites: Qualifiers: Ascites type: other type Qualified Code(s): R18.8 - Other ascites Code(s): R18.8 - Other ascites Status: Acute Assessment and Plan: get another paracentesis to rule out SBP will resume diuretics (5) Cirrhosis of liver: Qualifiers: Ascites presence: with ascites Hepatic cirrhosis type: unspecified hepatic cirrhosis Qualified Code(s): K74.60 - Unspecified cirrhosis of liver; R18.8 - Other ascites Code(s): K74.60 - Unspecified cirrhosis of liver Status: Chronic Assessment and Plan: ? hassan will get paracentesis (6) Diabetes mellitus with insulin therapy: Code(s): E11.9 - Type 2 diabetes mellitus without complications; Z79.4 - half-way (current) use of insulin Status: Acute (7) Hyponatremia: Code(s): E87.1 - Hypo-osmolality and hyponatremia Status: Acute (8) Leukocytosis: Code(s): D72.829 - Elevated white blood cell count, unspecified Status: Acute Assessment and Plan: will start on abx given gib need to rule out SBP GI Consult Note Consult date/time: 08/27/20 13:18 Reason for consult: hematemesis, cirrhosis HPI: Taryn Estevez is a 69 year old female known to me from previous hospitalization, she has history of cirrhosis at least since 2015 based on records when found by CT scan and also thrombocytopenia (evaluated by hematology because of the same in 2017) in the past labeled as cryptogenic but HASSAN is another possibility based on risk factors. She also has history Afib who has been on xarelto, DARA, HTN and DM. 06/2020 she came here with gib and ascites (had paracentesis), EGD showed mod-severe esophagitis with erosive gastritis prescribed PPI (no varices), she was here on July with suicidal ideation and last time 5 days ago with ascites that required 5 L of paracentesis (she is also on diuretics). She came here with coffee ground emesis and admitted to hospital, started on iv protonix and octreotide. Hb 9.4 ( at baseline), leukocytosis. CT scan showed cirrhosis of the liver, large volume of ascites and mild pulmonary edema. Mild wall thickening of the distal esophagus, consistent with edema versus esophagitis. Review of Systems Constitutional: Constitutional: Reports weakness Eyes: Eyes: Denies blurry vision ENT: Reports Normal hearing present Cardiovascular: Cardiovascular: Denies chest pain Respiratory: Respiratory: Denies cough Gastrointestinal: Gastrointestinal: Reports nausea, Reports vomiting and Reports hematemesis Genitourinary: Genitourinary: Denies hematuria Musculoskeletal: Musculoskeletal: Denies neck pain Integumentary/Breasts: Skin/Breast: Denies dry skin Neurologic: Denies numbness Psychiatric: Psychiatric: Reports anxiety PMFSH Past Medical History Medical History (Updated 08/27/20 @ 13:26 by Milo Guzman MD) Acute on chronic anemia Chronic pain of left knee Cirrhosis of liver with ascites Likely due to alcohol use Coagulopathy Depression Essential (primary) hypertension Hearing loss Hepatic encephalopathy History of CVA (cerebrovascular accident) Leukocytosis PAF (paroxys
--- NOTE | 2020-08-27 15:18 | P.PNIM_ITS ---
Progress Note: A&P Assessment and Plan (1) Acute upper gastrointestinal bleeding: Code(s): K92.2 - Gastrointestinal hemorrhage, unspecified Status: Acute Assessment and Plan: * Likely related to previously diagnosed gastric ulcers and gastritis * GI to evaluate further further development of varices or other vascular abnormalities * continue IV PPI and IV octreotide * serial H and H (2) Acute kidney failure: Qualifiers: Acute renal failure type: unspecified Qualified Code(s): N17.9 - Acute kidney failure, unspecified Code(s): N17.9 - Acute kidney failure, unspecified Status: Resolved Assessment and Plan: * presumably due to volume depletion * however hepatorenal syndrome is a concern * CT abdomen showed no significant abnormalities of the kidneys * check urinalysis (3) Hyponatremia: Code(s): E87.1 - Hypo-osmolality and hyponatremia Status: Acute Assessment and Plan: * suspect due to under fill caused by cirrhosis with portal hypertension as well as volume depletion * however she did not respond to saline bolus as sodium remained at 120 * 08/27 give 9 a mL of 3% saline over 3 hours and repeat sodium * continue IV saline * because she was on oral diuretics at home, fractional excretion of urea was ordered earlier today and is still pending * 08/28 ordered urine Na (4) PAF (paroxysmal atrial fibrillation): Code(s): I48.0 - Paroxysmal atrial fibrillation Status: Acute Assessment and Plan: * No anticoagulation or antiplatelet therapy due to GI bleeding (5) Cirrhosis of liver: Qualifiers: Ascites presence: with ascites Hepatic cirrhosis type: unspecified hepatic cirrhosis Qualified Code(s): K74.60 - Unspecified cirrhosis of liver; R18.8 - Other ascites Code(s): K74.60 - Unspecified cirrhosis of liver Status: Chronic Assessment and Plan: * Quit drinking about 18 months ago (6) Diabetes mellitus with insulin therapy: Code(s): E11.9 - Type 2 diabetes mellitus without complications; Z79.4 - half-way (current) use of insulin Status: Acute Assessment and Plan: * Continue bedside management (7) Anemia due to acute blood loss: Code(s): D62 - Acute posthemorrhagic anemia Status: Acute Assessment and Plan: * improved post transfusion. * Continue to monitor (8) Peptic ulcer disease: Code(s): K27.9 - Peptic ulcer, site unspecified, unspecified as acute or chronic, without hemorrhage or perforation Status: Acute Assessment and Plan: * continue PPI Subjective Date/time seen: 08/27/20 15:18 Interval history: Admitted 08/26 with hematemesis. Known cirrhosis with portal hypertension and ascites. 08/27 Feels tired but wants to eat and drink. Denied pain. Stools dark. No further emesis. Short of breath with activity. No chest discomfort. Review of Systems Review of Systems: All systems reviewed & are unremarkable except as noted in HPI and below Exam Narrative: Exam Narrative: HEENT: EOMI, PERRL, sclerae nonicteric, pharyngeal mucosa pink and intact NECK: No JVD CHEST: Decreased breath sounds at bases. Normal effort. HEART: NL S1/S2, regular, no murmur ABDOMEN: BS+, soft, protuberant, nontender, no mass, no bruits EXTREMITIES: No cyanosis, edema, or clubbing NEUROLOGIC: CN intact and symmetric to inspection. MUSCULOSKELETAL: Tone and strength symmetric but with diffuse weakness PSYCH: Alert. Oriented to person, place
--- NOTE | 2020-08-27 15:18 | PM.IMPN ---
Progress Note: A&P Assessment and Plan (1) Acute upper gastrointestinal bleeding: Code(s): K92.2 - Gastrointestinal hemorrhage, unspecified Status: Acute Assessment and Plan: Likely related to previously diagnosed gastric ulcers and gastritis GI to evaluate further further development of varices or other vascular abnormalities continue IV PPI and IV octreotide serial H and H (2) Acute kidney failure: Qualifiers: Acute renal failure type: unspecified Qualified Code(s): N17.9 - Acute kidney failure, unspecified Code(s): N17.9 - Acute kidney failure, unspecified Status: Resolved Assessment and Plan: presumably due to volume depletion however hepatorenal syndrome is a concern CT abdomen showed no significant abnormalities of the kidneys check urinalysis (3) Hyponatremia: Code(s): E87.1 - Hypo-osmolality and hyponatremia Status: Acute Assessment and Plan: suspect due to under fill caused by cirrhosis with portal hypertension as well as volume depletion however she did not respond to saline bolus as sodium remained at 120 1/10 give 9 a mL of 3% saline over 3 hours and repeat sodium continue IV saline because she was on oral diuretics at home, fractional excretion of urea was ordered earlier today and is still pending 08/28 ordered urine Na (4) PAF (paroxysmal atrial fibrillation): Code(s): I48.0 - Paroxysmal atrial fibrillation Status: Acute Assessment and Plan: No anticoagulation or antiplatelet therapy due to GI bleeding (5) Cirrhosis of liver: Qualifiers: Ascites presence: with ascites Hepatic cirrhosis type: unspecified hepatic cirrhosis Qualified Code(s): K74.60 - Unspecified cirrhosis of liver; R18.8 - Other ascites Code(s): K74.60 - Unspecified cirrhosis of liver Status: Chronic Assessment and Plan: Quit drinking about 18 months ago (6) Diabetes mellitus with insulin therapy: Code(s): E11.9 - Type 2 diabetes mellitus without complications; Z79.4 - local intermodal truck driver (current) use of insulin Status: Acute Assessment and Plan: Continue bedside management (7) Anemia due to acute blood loss: Code(s): D62 - Acute posthemorrhagic anemia Status: Acute Assessment and Plan: improved post transfusion. Continue to monitor (8) Peptic ulcer disease: Code(s): K27.9 - Peptic ulcer, site unspecified, unspecified as acute or chronic, without hemorrhage or perforation Status: Acute Assessment and Plan: continue PPI Subjective Date/time seen: 08/27/20 15:18 Interval history: Admitted 08/26 with hematemesis. Known cirrhosis with portal hypertension and ascites. 08/27 Feels tired but wants to eat and drink. Denied pain. Stools dark. No further emesis. Short of breath with activity. No chest discomfort. Review of Systems Review of Systems: All systems reviewed & are unremarkable except as noted in HPI and below Exam Narrative: Exam Narrative: HEENT: EOMI, PERRL, sclerae nonicteric, pharyngeal mucosa pink and intact NECK: No JVD CHEST: Decreased breath sounds at bases. Normal effort. HEART: NL S1/S2, regular, no murmur ABDOMEN: BS+, soft, protuberant, nontender, no mass, no bruits EXTREMITIES: No cyanosis, edema, or clubbing NEUROLOGIC: CN intact and symmetric to inspection. MUSCULOSKELETAL: Tone and strength symmetric but with diffuse weakness PSYCH: Alert. Oriented to person, place, but thought year was 2000 and did not know month. Objective Data Vital Signs Vital Signs: Vital Signs - 24 hr 08/26/20 18:01 08/26/20 18:20 08/26/20 18:30 Temperature 98.2 F Pulse Rate 119 H 94 84 Respiratory Rate 26 H 20 20 Blood Pressure 96/48 L Pulse Oximetry 93 97 95 08/26/20 18:49 08/26/20 19:00 08/26/20 19:01 Temperature Pulse Rate 84 83 80 Respiratory Rate 14 18 20 Blood Pressure 95/34 L Pulse Oxi
[2020-08-27] MEDS: SODIUM CHLORIDE 3% 500 ML 30 ML IV CONT (16:35)
[2020-08-27 16:42] LABS: Add Urine Microscopic? NO; Appearance Urine Clear (Clear); Bilirubin Urine Negative (Negative); Blood Urine Negative (Negative); Color Urine Yellow (Yellow); Glucose Urine UA Negative (Negative); Ketones Urine Negative (Negative); Leukocyte Esterase Ur Negative LEU/UL (Negative); Nitrate Urine Negative (Negative); Protein Urine Negative (Negative); Specific Grav Ur 1.017 (1.001-1.035); Urobilinogen Urine Negative mg/dL (<2.0)
[2020-08-27 17:07] LABS: Urea Random Urine 490 MG/DL
[2020-08-27 17:18] LABS: Creatinine Urine 113.6 mg/dL
[2020-08-27 17:40] LABS: Hematocrit 24.6 % (37.0-47.0); Hemoglobin 8.5 g/dL (12.0-15.0)
[2020-08-27 17:48] LABS: Glucose Point of Care 144 (65-105)
[2020-08-27 18:54] LABS: Anion Gap 7 mmol/L (8-16); Blood Urea Nitrogen 74 mg/dL (7-17); Calcium 7.8 mg/dL (8.4-10.2); Carbon Dioxide 23 mmol/L (22-30); Chloride 91 mmol/L (98-107); Estimated CRCL calculation 30 ml/min; Estimated Glomerular Filt Rate 32; Glucose 143 mg/dL (65-105); Potassium 4.7 mmol/L (3.4-5.0); Sodium 121 mmol/L (137-145)
[2020-08-27 23:42] LABS: Hematocrit 24.9 % (37.0-47.0); Hemoglobin 8.5 g/dL (12.0-15.0)
[2020-08-27 23:46] LABS: Glucose Point of Care 184 (65-105)
[2020-08-28] VITALS (18 sets, daily range): BP systolic 101–127; BP diastolic 39–54; PULSE 78–85; RESP 18–22; TEMP 36.1–36.8; O2SAT 93–100; BMI 32.4
[2020-08-28] MEDS: SODIUM CHLORIDE 0.9% IV 1,000 ML 100 ML IV CONT (03:49)
[2020-08-28 07:17] LABS: Creatinine Urine 102.8 mg/dL
[2020-08-28 07:21] LABS: Hematocrit 23.8 % (37.0-47.0); Hemoglobin 8.3 g/dL (12.0-15.0); Mean Corpuscular HGB Conc 34.9 g/dl (32-36); Mean Corpuscular Hemoglobin 31.1 pg (26-34); Mean Corpuscular Volume 89.1 fl (80-100); Platelet Count Result 137 k/mm3 (150-375); Red Blood Count 2.67 M/mm3 (4.2-5.4); Red Cell Distribution Width 17.7 % (11.5-14.5); White Blood Count 24.7 K/mm3 (4.5-10.0)
[2020-08-28 07:35] LABS: INR 1.4; Prothrombin Time 17.9 Seconds (11.1-14.7)
[2020-08-28 07:37] LABS: Ammonia 14 umol/L (9-30)
[2020-08-28 07:47] LABS: Alanine Aminotransferase 20 U/L (4-35); Albumin Level 2.2 g/dL (3.5-5.1); Alkaline Phosphatase 60 U/L (38-126); Anion Gap 5 mmol/L (8-16); Aspartate Amino Transferase 54 U/L (14-36); Bilirubin,Total 1.7 mg/dL (0.2-1.3); Blood Urea Nitrogen 73 mg/dL (7-17); Calcium 7.6 mg/dL (8.4-10.2); Carbon Dioxide 21 mmol/L (22-30); Chloride 94 mmol/L (98-107); Estimated CRCL calculation 30 ml/min; Estimated Glomerular Filt Rate 32; Glucose 181 mg/dL (65-105); Potassium 4.6 mmol/L (3.4-5.0); Sodium 120 mmol/L (137-145)
[2020-08-28 09:28] LABS: Sodium Urine Random < 5 meq/L
--- NOTE | 2020-08-28 09:51 | PCOTNOTE ---
Attempted OT evaluation this AM. Patient down for testing/procedure. Will attempt OT evaluation at later time.
--- NOTE | 2020-08-28 09:54 | PCPTNOTE ---
Attempted PT evaluation this AM. Patient down for testing/procedure. Will attempt PT evaluation at later time.
[2020-08-28] MEDS: LACTATED RINGERS 1,000 ML 150 ML IV CONT (10:13)
[2020-08-28 10:15] LABS: Glucose Point of Care 170 (65-105)
[2020-08-28 10:15] LABS: Glucose Point of Care 163 (65-105)
--- NOTE | 2020-08-28 10:40 | WPDANESEPPF ---
Anes - Initial Pre Proc Eval Procedure: Operation Date: 08/28/20 13:15 Proposed Procedures p Esophagogastroduodenoscopy - Milo Guzman MD Date/Time: 08/28/20 10:40 Surgeon: Ananya Dick DO Pre Op Diagnosis: ACUTE UPPER GI BLEED, ANEMIA, ASCITES Patient Data Age: 69 Gender: F Height: 5 ft 3 in Weight: 83 kg Last Vital Signs Temp 97.3 F L 08/28/20 10:06 Pulse 81 08/28/20 10:06 Resp 18 08/28/20 10:06 BP 118/45 L 08/28/20 10:06 Pulse Ox 100 08/28/20 10:06 Allergies Allergy/AdvReac Type Severity Reaction Status Date / Time No Known Allergies Allergy Verified 08/26/20 18:06 Home Medications Medication Instructions Recorded Confirmed Type escitalopram oxalate 20 mg tablet 10 mg PO DAILY 08/05/19 08/27/20 History metformin 1,000 mg tablet 1,000 mg PO BID 08/05/19 08/27/20 History pravastatin 20 mg tablet 20 mg PO DAILY 08/05/19 08/27/20 History rivaroxaban 20 mg tablet 20 mg PO DAILY 08/05/19 08/27/20 History pantoprazole 40 mg PO Q12HR 30 Days #60 tablet 07/06/20 08/27/20 Rx ferrous gluconate 324 mg PO DAILY 08/03/20 08/27/20 History lactulose 45 ml PO Q8-10H 08/03/20 08/27/20 History Lantus U-100 Insulin 25 units SUBCUT DAILY 30 Days #7.5 08/07/20 08/27/20 Rx ml furosemide 60 mg PO DAILY #100 tablet 08/07/20 08/27/20 Rx spironolactone [Aldactone] 150 mg PO QAM #100 tablet 08/07/20 08/27/20 Rx Laboratory Tests 08/27/20 08/27/20 08/27/20 10:06 10:06 10:06 WBC RBC Hgb Hct MCV MCH MCHC RDW Plt Count MPV PT INR Sodium 120 mmol/L L mmol/L (137-145) Potassium 4.6 mmol/L mmol/L (3.4-5.0) Chloride 88 mmol/L L mmol/L (98-107) Carbon Dioxide 22 mmol/L mmol/L (22-30) Anion Gap 10 mmol/L mmol/L (8-16) BUN 71 mg/dL H mg/dL (7-17) Creatinine 1.80 mg/dL H mg/dL (0.7-1.0) Estim Creat Clear Calc 26 ml/min ml/min Estimated GFR 28 L (59 - ) Glucose 154 mg/dL H mg/dL (65-105) POC Capillary Glucose Calcium 8.2 mg/dL L mg/dL (8.4-10.2) Total Bilirubin AST ALT Alkaline Phosphatase Ammonia Total Protein Albumin TSH (Reflex) 0.613 uIU/mL uIU/mL (0.465-4.68) Random Cortisol 44.00 ug/dL ug/dL Urine Color Urine Appearance Urine pH Ur Specific [place] Urine Protein Urine Glucose (UA) Urine Ketones Ur Blood (Man) Urine Nitrate Urine Bilirubin Urine Urobilinogen Leukocyte Esterase Rfl Ur Random Sodium Ur Random Urea Urine Creatinine 08/27/20 08/27/20 08/27/20 10:06 10:07 12:41 WBC RBC Hgb 9.4 g/dL L g/dL (12.0-15.0) Hct 26.9 % L % (37.0-47.0) MCV MCH MCHC RDW Plt Count MPV PT 21.0 Seconds H Seconds (11.1-14.7) INR 1.7 Sodium Potassium Chloride Carbon Dioxide Anion Gap BUN Creatinine Estim Creat Clear Calc Estimated GFR Glucose POC Capillary Glucose 154 mg/dl H mg/dl (65-105) Calcium Total Bilirubin AST ALT Alkaline Phosphatase Ammonia Total Protein Albumin TSH (Reflex) Random Cortisol Urine Color Urine Appearance Urine pH Ur Specific [place] Urine Protein
--- NOTE | 2020-08-28 11:54 | SUR.PHASEII ---
PT BEING TRANSFERRED TO ULTRASOUND AFTER LEAVING GI LAB. REPORT CALLED TO MIRZA OWENS AND SHE IS AWARE.
--- NOTE | 2020-08-28 12:35 | PM.IMPN ---
Progress Note: A&P Assessment and Plan (1) Acute upper gastrointestinal bleeding: Code(s): K92.2 - Gastrointestinal hemorrhage, unspecified Status: Acute Assessment and Plan: Likely related to previously diagnosed gastric ulcers and gastritis GI to evaluate further further development of varices via EGD today continue IV PPI and IV octreotide serial H and H (2) Acute kidney failure: Qualifiers: Acute renal failure type: unspecified Qualified Code(s): N17.9 - Acute kidney failure, unspecified Code(s): N17.9 - Acute kidney failure, unspecified Status: Resolved Assessment and Plan: CReat is 1.6 (3) Hyponatremia: Code(s): E87.1 - Hypo-osmolality and hyponatremia Status: Acute Assessment and Plan: suspect due to under fill caused by cirrhosis with portal hypertension as well as volume depletion Continue to watch decrease rate consult nephrology ? hepatorenal v ARF secondary to GI bleed (4) PAF (paroxysmal atrial fibrillation): Code(s): I48.0 - Paroxysmal atrial fibrillation Status: Acute Assessment and Plan: No anticoagulation or antiplatelet therapy due to GI bleeding (5) Cirrhosis of liver: Qualifiers: Ascites presence: with ascites Hepatic cirrhosis type: unspecified hepatic cirrhosis Qualified Code(s): K74.60 - Unspecified cirrhosis of liver; R18.8 - Other ascites Code(s): K74.60 - Unspecified cirrhosis of liver Status: Chronic Assessment and Plan: Quit drinking about 18 months ago (6) Diabetes mellitus with insulin therapy: Code(s): E11.9 - Type 2 diabetes mellitus without complications; Z79.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 Continue to monitor (8) Peptic ulcer disease: Code(s): K27.9 - Peptic ulcer, site unspecified, unspecified as acute or chronic, without hemorrhage or perforation Status: Acute Assessment and Plan: continue PPI Subjective Date/time seen: 08/28/20 12:35 Interval history: Admitted 08/26 with hematemesis. Known cirrhosis with portal hypertension and ascites. Going down for EGD and paracentesis today No other specific complaints today Review of Systems Review of Systems: All systems reviewed & are unremarkable except as noted in HPI and below Exam Narrative: Exam Narrative: Chronically ill lady CHEST: Clear BS Normal effort. HEART: NL S1/S2, regular, no murmur ABDOMEN: BS+, soft, with ascites EXTREMITIES: No cyanosis, edema, or clubbing NEUROLOGIC: CN intact and symmetric to inspection. MUSCULOSKELETAL: Tone and strength symmetric but with diffuse weakness PSYCH: Alert. Oriented to person, place. Objective Data Vital Signs Vital Signs: Vital Signs - 24 hr 08/27/20 14:00 08/27/20 16:00 08/27/20 18:00 Temperature 35.3 C L Pulse Rate 75 75 78 Respiratory Rate 18 Blood Pressure 109/49 L Pulse Oximetry 100 08/27/20 19:54 08/27/20 20:00 08/27/20 22:00 Temperature 36.4 C Pulse Rate 79 80 82 Respiratory Rate 18 18 Blood Pressure 123/40 L Pulse Oximetry 96 96 08/27/20 23:28 08/28/20 00:00 08/28/20 02:00 Temperature 36.4 C Pulse Rate 79 79 81 Respiratory Rate 20 20 Blood Pressure 114/41 L Pulse Oximetry 93 93 08/28/20 04:00 08/28/20 05:50 08/28/20 08:00 Temperature 36.6 C 36.4 C Pulse Rate 78 80 82 Respiratory Rate 20 18 Blood Pressure 104/40 L 110/41 L Pulse Oximetry 95 97 08/28/20 10:06 08/28/20 11:27 08/28/20 11:37 Temperature 36.3 C L Pulse Rate 81 83 82 Respiratory Rate 18 22 H 21 H Blood Pressure 118/45 L 103/54 L 103/54 L Pulse Oximetry 100 97 99 08/28/20 11:47 08/28/20 11:57 Temperature Pulse Rate
--- NOTE | 2020-08-28 13:05 | PCPTNOTE ---
OTR went to see pt - she was told to hold on PT and OT this date due to medical issues. Will try PT eval tomorrow.
--- NOTE | 2020-08-28 13:05 | PCOTNOTE ---
OT evaluation attempted. hold patient this date per RN due to patient being in testing/procedure all day and patient needing to rest. Will attempt OT evaluation at later time as appropriate.
[2020-08-28 13:40] LABS: Hematocrit 25.3 % (37.0-47.0); Hemoglobin 8.5 g/dL (12.0-15.0)
[2020-08-28 13:55] LABS: Appearance Peritoneal Fluid Turbid (Clear); Color Peritoneal Fluid Red (Colorless); Nucleated Cells Peritoneal Flu 150 /uL (0-500); RBC Peritoneal Fluid 215 /uL (0-100000); Source Peritoneal Fluid Peritoneal Fluid
[2020-08-28 13:59] LABS: Neutrophils Peritoneal Fluid 54 % (0-25)
[2020-08-28 14:00] LABS: Lymphocytes Peritoneal Fluid 36 %; Mesothelial Cells Peritoneal Fluid 9 %; Monocytes Peritoneal Fluid 1 %
[2020-08-28 18:28] LABS: Glucose Point of Care 165 (65-105)
[2020-08-28 18:28] LABS: Glucose Point of Care 163 (65-105)
[2020-08-28 18:41] LABS: Hematocrit 24.6 % (37.0-47.0); Hemoglobin 8.5 g/dL (12.0-15.0)
--- NOTE | 2020-08-28 19:10 | PM.CNNEP ---
Assessment and Plan Assessment and plan (1) Hyponatremia: Code(s): E87.1 - Hypo-osmolality and hyponatremia Status: Acute Assessment and Plan: presumably due to volume overload and CRISTY/ARF agree with fluid restriction may need to consider diuretics if hemodynamics allow follow trend of sodium check urine lytes, SPEP/UPEP, serum/urine osmolality, TSH and cortisol (2) Acute kidney failure: Qualifiers: Acute renal failure type: unspecified Qualified Code(s): N17.9 - Acute kidney failure, unspecified Code(s): N17.9 - Acute kidney failure, unspecified Status: Acute Assessment and Plan: probably due to altered hemodynamics follow blood pressure follow trend of repeat labs urine lytes and renal ultrasound Will continue to follow. History of Present Illness Reason for Consult Consult date: 08/28/20 Reason for consult: hyponatremia Chief Complaint Chief complaint: ACUTE UPPER GI BLEED, ANEMIA, ASCITES History of Present Illness Narrative: Most of the information I have obtained is from review of the electronic medical record and discussion with the medical personnel involved in her care as her mentation (lethargy) somewhat limits what history I can obtain. The patient is a 69 year old female with a signficant past medical history as outlined below who presented to the ER with hematemesis. Apparently, the patient had approximately 3 episodes of asthmatic emesis at home prior to her presentation. the patient recently was taken off blood thinners but despite this fact, she developed sudden onset nausea and vomiting with immediate emesis of bright red blood. Is difficult to quantitate how much blood but it seemed to be a significant amount in general. Aside from the hematemesis, she gave no history of melena or hematochezia or for that matter hematuria. . however, given the severity of the hematemesis as mentioned, she presented to the emergency room for evaluation Workup and evaluation emergency room found the patient be somewhat hypotensive otherwise able to protect her airway. Routine blood test demonstrated her hemoglobin hematocrit to be relatively preserved but her chemistry was significant for an elevated BUN and creatinine in association with hyponatremia. Her blood pressure improved with administration of IV fluids and given her known medical history, she was started on octreotide as well as IV Protonix with subsequent admitted to the hospital for further evaluation. Since her admission, Gastroenterology has been consulted and she underwent appropriate studies to evaluate her anemia. She also had packed red blood cell transfusions as well as further evaluation of her known liver cirrhosis as well. Unfortunately, more recently, she has had a change in mental status with increased lethargy presumably secondary to the multitude of medical problems that she has. Renal consultation was requested due to her acute kidney injury as well as her hyponatremia. Since the discovery of her hyponatremia she has been placed on a fluid restriction. It would seem from review of her records that she has some degree of chronic hyponatremia although her sodium level has never been this low before. Furthermore, her creatinine normally runs within the normal range as well. There is some concern that given the severity of her liver disease that she may have a component of hepatic renal syndrome or least a variation of it which is quite possible. Currently, as already mentioned, she has been having some issues with fluctuating mentation and it is difficult to say if this is due to her multiple medical issues or the a for mentioned hyponatremia although her sodium level was just as low as it has been on admission and she was fairly awake and oriented at that time. Review of Systems Review of Systems: Narrative: As per HPI. [facility] Past Medical History Medical History (Updated 09/03/20
[2020-08-28] MEDS: SODIUM CHLORIDE 0.9% IV 1,000 ML 50 ML IV CONT (20:01)
[2020-08-28] MEDS: PANTOPRAZOLE SODIUM IV 40 MG VIAL IV PUSH (20:01)
[2020-08-28 23:31] LABS: Glucose Point of Care 185 (65-105)
[2020-08-29] VITALS (14 sets, daily range): BP systolic 102–122; BP diastolic 31–57; PULSE 69–81; RESP 16–22; TEMP 35.7–36.6; O2SAT 97–100; BMI 10.0
[2020-08-29 05:19] LABS: Hematocrit 22.2 % (37.0-47.0); Hemoglobin 7.4 g/dL (12.0-15.0); Mean Corpuscular HGB Conc 33.3 g/dl (32-36); Mean Corpuscular Hemoglobin 29.7 pg (26-34); Mean Corpuscular Volume 89.2 fl (80-100); Mean Platelet Volume 10.3 fl (7.4-10.4); Platelet Count Result 122 k/mm3 (150-375); Red Blood Count 2.49 M/mm3 (4.2-5.4); Red Cell Distribution Width 17.8 % (11.5-14.5); White Blood Count 17.5 K/mm3 (4.5-10.0)
[2020-08-29 05:27] LABS: Anion Gap 7 mmol/L (8-16); Blood Urea Nitrogen 80 mg/dL (7-17); Calcium 7.7 mg/dL (8.4-10.2); Carbon Dioxide 20 mmol/L (22-30); Chloride 96 mmol/L (98-107); Estimated CRCL calculation 32 ml/min; Estimated Glomerular Filt Rate 34; Glucose 162 mg/dL (65-105); Sodium 123 mmol/L (137-145)
--- NOTE | 2020-08-29 08:17 | PCOTNOTE ---
Attempted OT evaluation, pt agreeable to getting out of bed, when assisting patient with bed mobility pt began yelling no, no, no . assisted pt back to bed. will attempt OT evaluation at later time. RN notified
--- NOTE | 2020-08-29 08:19 | WPDANESPN ---
Anes - Prog Note Post-Op Date/Time: 08/29/20 08:19 Cardiovascular status: normal Respiratory status: normal Airway patency: baseline Mental status: baseline (alert to person and place. ) Post-Op hydration status: normal (nephrology consulted. IV fluids. ) Vital Signs: Last Vital Signs Temp 36.6 C 08/29/20 04:00 Pulse 79 08/29/20 08:00 Resp 20 08/29/20 04:00 BP 114/57 L 08/29/20 04:00 Pulse Ox 97 08/29/20 04:00 Pain Score (VAS): 0 I/O: Intake & Output 08/28/20 08/29/20 08/29/20 23:59 07:59 15:59 Intake Total 1125 0 Output Total 300 350 Balance 825 -350 Laboratory Tests 08/29/20 04:40 08/29/20 04:40 08/28/20 08/28/20 08/28/20 06:46 10:11 10:12 WBC RBC Hgb Hct MCV MCH MCHC RDW Plt Count MPV Sodium Potassium Chloride Carbon Dioxide Anion Gap BUN Creatinine Estim Creat Clear Calc Estimated GFR Glucose POC Capillary Glucose 170 H 163 H Calcium Ur Random Sodium < 5 Peritoneal Source Peritoneal Color Peritoneal Appearance Peritoneal RBC Periton Nuc Cells Periton Neutrophils Periton Lymphocytes Peritoneal Monocytes Periton Mesothelial 08/28/20 08/28/20 08/28/20 12:03 12:56 13:26 WBC RBC Hgb 8.5 L Hct 25.3 L MCV MCH MCHC RDW Plt Count MPV Sodium Potassium Chloride Carbon Dioxide Anion Gap BUN Creatinine Estim Creat Clear Calc Estimated GFR Glucose POC Capillary Glucose 165 H Calcium Ur Random Sodium Peritoneal Source Peritoneal fluid Peritoneal Color Red Peritoneal Appearance Turbid A Peritoneal RBC 215 Periton Nuc Cells 150 Periton Neutrophils 54 H Periton Lymphocytes 36 Peritoneal Monocytes 1 Periton Mesothelial 9 08/28/20 08/28/20 08/28/20 17:47 18:33 23:29 WBC RBC Hgb 8.5 L Hct 24.6 L MCV MCH MCHC RDW Plt Count MPV Sodium Potassium Chloride Carbon Dioxide Anion Gap BUN Creatinine Estim Creat Clear Calc Estimated GFR Glucose POC Capillary Glucose 163 H 185 H Calcium Ur Random Sodium Peritoneal Source Peritoneal Color Peritoneal Appearance Peritoneal RBC Periton Nuc Cells Periton Neutrophils Periton Lymphocytes Peritoneal Monocytes Periton Mesothelial 08/29/20 08/29/20 04:40 04:40 WBC 17.5 H RBC 2.49 L Hgb 7.4 L Hct 22.2 L MCV 89.2 MCH 29.7 MCHC 33.3 RDW 17.8 H Plt Count 122 L MPV 10.3 Sodium 123 L Potassium 5.0 Chloride 96 L Carbon Dioxide 20 L Anion Gap 7 L BUN 80 H Creatinine 1.50 H Estim Creat Clear Calc 32 Estimated GFR 34 L Glucose 162 H POC Capillary Glucose Calcium 7.7 L Ur Random Sodium Peritoneal Source Peritoneal Color Peritoneal Appearance Peritoneal RBC Periton Nuc Cells Periton Neutrophils Periton Lymphocytes Peritoneal Monocytes Periton Mesothelial Post-procedural complaints: none Patient Feedback: Patient satisfied with anesthetic care. Other Findings: patient is chronically ill.
--- NOTE | 2020-08-29 08:47 | PCPTNOTE ---
Initiated eval. Pt saying Stop, stop, stop to all movement. Will try again at later time.
[2020-08-29] MEDS: PANTOPRAZOLE SODIUM IV 40 MG VIAL IV PUSH ×2 (10:00→20:48)
[2020-08-29] MEDS: ALBUMIN HUMAN 25% 25 GM/100 ML 200 ML IVPB (10:02)
--- NOTE | 2020-08-29 11:16 | WPDNEURCNPN ---
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 Status: Acute (2) Hyponatremia: Code(s): E87.1 - Hypo-osmolality and hyponatremia Status: Acute (3) Acute upper gastrointestinal bleeding: Code(s): K92.2 - Gastrointestinal hemorrhage, unspecified Status: Acute (4) Ascites: Qualifiers: Ascites type: other type Qualified Code(s): R18.8 - Other ascites Code(s): R18.8 - Other ascites Status: Acute (5) Cirrhosis of liver: Qualifiers: Ascites presence: with ascites Hepatic cirrhosis type: unspecified hepatic cirrhosis Qualified Code(s): K74.60 - Unspecified cirrhosis of liver; R18.8 - Other ascites Code(s): K74.60 - Unspecified cirrhosis of liver Status: Chronic (6) Encephalopathy, hepatic: Code(s): K72.90 - Hepatic failure, unspecified without coma Status: Resolved Additional Plan metabolic encephalopathy of multifactorial etiology medical treatment continues such the CT scan of the head has been reportedly negative for the bleed I will suggest to continue treatment as such Consult date: 08/29/20 Time Seen: 11:00 HPI: Taryn Estevez is a 69 year old femaleAdmitted to the hospital with the complaints of hematemesis in addition to the ongoing history of 1. Cirrhosis of the liver 2. Duodenal ulcers with gastritis esophagitis 3. History of recent hospitalization on August 22, when she was taken of Xarelto and has continued up until now she has also been taking Protonix her last BM was couple of days ago which was obviously dark in color and she is not having any recurrent hematemesis has received IV Protonix in the emergency room . She has ongoing history of chronic anemia, cirrhosis of the liver secondary to alcoholism, hypertension, paroxysmal atrial fibrillation and type 2 diabetes mellitus, is also current everyday smoker with smoking pack years of 27.5, her most recent lab with WBC 17.5 hemoglobin 7.4 platelet count of 122 sodium only 123 on BMP with creatinine of 1.5 BUN of 8 0, some 7.7, head CT scan on 08 22 was negative for bleed and CT chest abdomen pelvis with cirrhosis of the liver large volume of ascites mild pulmonary edema and 4 cm2 stick mass of the right ovary. Thatch has been seen by the nurse midwife for ongoing hypo osmolality and hyponatremia Review of Systems Review of Systems: All systems reviewed & are unremarkable except as noted in HPI and below PMFSH Past Medical History Medical History Acute on chronic anemia Chronic pain of left knee Cirrhosis of liver with ascites Likely due to alcohol use Coagulopathy Depression Essential (primary) hypertension Hearing loss Hepatic encephalopathy History of CVA (cerebrovascular accident) Leukocytosis PAF (paroxysmal atrial fibrillation) Type 2 diabetes mellitus with diabetic polyneuropathy, with long-term current use of insulin Surgical History Surgical History History of esophagogastroduodenoscopy (EGD) 07/04/2020 demonstrated unspecified esophagitis, gastritis, duodenitis and unspecified duodenal ulcers exam performed by Dr. Ridley S/P knee replacement Family History Family History Sibling Carcinoma of colon Patient's brother is Mother Patient's mother is Lung cancer Father Patient's father is COPD (chronic obstructive pulmonary disease) Social History Social History Social History: She lives at home with her of 19 years. Her is a durable power research attorney for healthcare and she is a full code. She has 2 children but not with her current . 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
--- NOTE | 2020-08-29 11:30 | PM.PNNEP ---
Progress Note: A&P Assessment and Plan (1) Hyponatremia: Code(s): E87.1 - Hypo-osmolality and hyponatremia Status: Acute Assessment and Plan: some improvement noted suspect large volume paracentesis likely helped this issue presumably due to volume overload and CRISTY/ARF agree with fluid restriction may need to consider diuretics if hemodynamics allow follow trend of sodium follow-up SPEP/UPEP, serum/urine osmolality, TSH and cortisol (2) Acute kidney failure: Qualifiers: Acute renal failure type: unspecified Qualified Code(s): N17.9 - Acute kidney failure, unspecified Code(s): N17.9 - Acute kidney failure, unspecified Status: Acute Assessment and Plan: stable at this time probably due to altered hemodynamics follow blood pressure follow trend of repeat labs Will continue to follow. Subjective Date/time seen: 08/29/20 11:30 Mentation continues to fluctuate per nursing; s/p large volume paracentesis and tolerated procedure reasonably well. Exam Narrative: Exam Narrative: General: ill appearing female - somewhat confused Heart: normal S1 and S2; no rub Lungs: decreased at bases Abdomen: soft, nontender, ++distended, positive bowel sounds Extremities: no cyanosis or clubbing; 1+edema Skin: warm and dry Objective Data Vital Signs Vital Signs: \ Vital Signs Temp Pulse Resp BP Pulse Ox 08/29/20 08:59 35.8 C L 80 20 102/31 L 98 08/29/20 08:00 79 08/29/20 06:00 79 08/29/20 04:00 36.6 C 79 20 114/57 L 97 08/29/20 02:00 81 08/29/20 00:00 81 08/28/20 23:39 36.5 C 83 20 127/39 L 98 08/28/20 22:00 80 08/28/20 20:00 36.6 C 84 18 101/39 L 96 08/28/20 18:00 84 08/28/20 16:00 36.1 C L 80 22 H 102/48 L 95 08/28/20 14:00 81 08/28/20 13:00 36.8 C 83 18 114/45 L 94 08/28/20 12:00 85 08/28/20 11:57 80 18 105/53 L 99 08/28/20 11:47 81 20 112/51 L 100 08/28/20 11:37 82 21 H 103/54 L 99 Intake/Output Intake/Output: Intake & Output 08/26/20 08/27/20 08/28/20 08/29/20 23:59 23:59 23:59 23:59 Intake Total 1350 2325 1725 120 Output Total 180 5600 350 Balance 1350 4675 -7615 -230 Meds/Results Medications: Active Medications Generic Name Dose Route Start Last Admin Trade Name Freq PRN Reason Stop Dose Admin Dextrose 12.5 gm 08/27/20 04:51 Dextrose 50% 25 Gm/50 Ml Syringe IV PUSH PRN PRN Hypoglycemia Protocol Glucagon 1 mg 08/27/20 04:51 Glucagon For Inj 1 Mg Vial IM PRN PRN Hypoglycemia Protocol Glucose 15 gm 08/27/20 04:51 Glucose Oral Gel 15 Gm Of Glucse In 37.5 Gm Tube PO PRN PRN Hypoglycemia Protocol Dextrose 1,000 mls @ 100 mls/hr 08/27/20 04:51 Dextrose 5% 1,000 Ml IVPB PRN PRN Hypoglycemia Protocol Sodium Chloride 1,000 mls @ 50 mls/hr 08/27/20 08:25 08/28/20 20:01 Normal Saline Iv IV CONT 50 mls/hr .Q20H ANYI Administration Ceftriaxone Sodium/Dextrose 1 gm in 50 mls @ 100 mls/hr 08/27/20 14:00 08/28/20 18:10 Rocephin 1 Gm/D5w 50 Ml IVPB Infused Q24H ANYI Infusion Insulin Aspart 3 - 6 units 08/27/20 06:00 08/29/20 06:02 Insulin Aspart (*Bkc) 100 Units/Ml SUB-Q Not Given Q6HR ANYI Protocol Ondansetron HCl 4 mg 08/26/20 21:54 08/27/20 21:41 Ondansetron Inj 4 Mg/2 Ml Vial IV PUSH 4 mg Q4H PRN Administration Nausea Pantoprazole Sodium 40 mg 08/28/20 21:00 08/29/20 10:00 Pantoprazole Sodium Iv 40 Mg Vial IV PUSH 40 mg Q12HR ANYI Administration Radiology Results: ITS Impressions Chest/Abdomen/Pelvis CT 08/26/20 20:50 IMPRESSION: 1. Cirrhosis of the liver. 2. Large volume of ascites. 3. Mild pulmonary edema. 4. Mild wall thickening of the distal esophagus, consistent with edema versus esophagitis. 5. 4.0 cm cystic mass of the right ovary, likely benign. Pelvis ultrasound is rec
[2020-08-29 12:29] LABS: Glucose Point of Care 163 (65-105)
--- NOTE | 2020-08-29 13:39 | PM.IMPN ---
Progress Note: A&P Assessment and Plan (1) Acute upper gastrointestinal bleeding: Code(s): K92.2 - Gastrointestinal hemorrhage, unspecified Status: Acute Assessment and Plan: EGD shows gastritis, duodenitis esophagitis continue IV PPI BID Gi following hb is 7.4 (2) Acute kidney failure: Qualifiers: Acute renal failure type: unspecified Qualified Code(s): N17.9 - Acute kidney failure, unspecified Code(s): N17.9 - Acute kidney failure, unspecified Status: Resolved Assessment and Plan: Creat is 1.5 nephrology following (3) Hyponatremia: Code(s): E87.1 - Hypo-osmolality and hyponatremia Status: Acute Assessment and Plan: suspect due to under fill caused by cirrhosis with portal hypertension as well as volume depletion Continue to watch decrease rate consult nephrology ? hepatorenal v ARF secondary to GI bleed (4) PAF (paroxysmal atrial fibrillation): Code(s): I48.0 - Paroxysmal atrial fibrillation Status: Acute Assessment and Plan: No anticoagulation or antiplatelet therapy due to GI bleeding (5) Cirrhosis of liver: Qualifiers: Ascites presence: with ascites Hepatic cirrhosis type: unspecified hepatic cirrhosis Qualified Code(s): K74.60 - Unspecified cirrhosis of liver; R18.8 - Other ascites Code(s): K74.60 - Unspecified cirrhosis of liver Status: Chronic Assessment and Plan: Quit drinking about 18 months ago (6) Diabetes mellitus with insulin therapy: Code(s): E11.9 - Type 2 diabetes mellitus without complications; 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 Continue to monitor (8) Peptic ulcer disease: Code(s): K27.9 - Peptic ulcer, site unspecified, unspecified as acute or chronic, without hemorrhage or perforation Status: Acute Assessment and Plan: continue PPI Subjective Date/time seen: 08/29/20 13:39 Interval history: Admitted 08/26 with hematemesis. Known cirrhosis with portal hypertension and ascites. Pt looks tired, poor historian. Pt seen by GI and neurology and nephrology in the hospital No other specific complaints today Review of Systems Review of Systems: All systems reviewed & are unremarkable except as noted in HPI and below Exam Narrative: Exam Narrative: Chronically ill lady, tired, weak CHEST: Clear BS Normal effort. HEART: NL S1/S2, regular, no murmur ABDOMEN: BS+, soft, NT EXTREMITIES: No cyanosis, edema, or clubbing NEUROLOGIC: CN intact and symmetric to inspection. MUSCULOSKELETAL: Tone and strength symmetric but with diffuse weakness PSYCH: Alert. Oriented to person, place. Objective Data Vital Signs Vital Signs: Vital Signs - 24 hr 08/28/20 14:00 08/28/20 16:00 08/28/20 18:00 Temperature 36.1 C L Pulse Rate 81 80 84 Respiratory Rate 22 H Blood Pressure 102/48 L Pulse Oximetry 95 08/28/20 20:00 08/28/20 22:00 08/28/20 23:39 Temperature 36.6 C 36.5 C Pulse Rate 84 80 83 Respiratory Rate 18 20 Blood Pressure 101/39 L 127/39 L Pulse Oximetry 96 98 08/29/20 00:00 08/29/20 02:00 08/29/20 04:00 Temperature 36.6 C Pulse Rate 81 81 79 Respiratory Rate 20 Blood Pressure 114/57 L Pulse Oximetry 97 08/29/20 06:00 08/29/20 08:00 08/29/20 08:59 Temperature 35.8 C L Pulse Rate 79 79 80 Respiratory Rate 20 Blood Pressure 102/31 L Pulse Oximetry 98 08/29/20 10:00 08/29/20 12:00 08/29/20 13:05 Temperature 35.7 C L Pulse Rate 73 75 76 Respiratory Rate 22 H Blood Pressure 112/40 L Pulse Oximetry 100 Intake/Output Intake/Output: Intake & Output 08/26/20 08/27/20 08/28/20 08/29/20 23:59 23:59 23:59 23:59
--- NOTE | 2020-08-29 14:30 | PCPTNOTE ---
Attempted PT evsharda. RN stated to hold therapy due to change in medical status. Will try again tomorrow.
--- NOTE | 2020-08-29 15:24 | WPDGIPROGNO ---
Progress Note: A&P Assessment and Plan (1) Acute upper gastrointestinal bleeding: Code(s): K92.2 - Gastrointestinal hemorrhage, unspecified Status: Acute Assessment and Plan: egd yesterday with erosive esophagitis, found old clots, no varices continue with protonix bid on antibiotics given gib and cirrhosis, ascites was negative for SBP (2) Anemia due to acute blood loss: Code(s): D62 - Acute posthemorrhagic anemia Status: Acute Assessment and Plan: continue to monitor for signs of bleeding (3) Erosive esophagitis: Code(s): K22.10 - Ulcer of esophagus without bleeding Status: Acute Assessment and Plan: on medical treatment (4) Encephalopathy, hepatic: Code(s): K72.90 - Hepatic failure, unspecified without coma Status: Resolved Assessment and Plan: more confused and lethargic today will resume her lactulose (titrate for 3-4 BM/d) and also xifaxan bid (5) Cirrhosis of liver with ascites: Code(s): K74.60 - Unspecified cirrhosis of liver; R18.8 - Other ascites Status: Acute Assessment and Plan: 5 L removed yesterday, no sbp on iv albumin today (6) Leukocytosis: Code(s): D72.829 - Elevated white blood cell count, unspecified Status: Acute (7) Diabetes mellitus with insulin therapy: Code(s): E11.9 - Type 2 diabetes mellitus without complications; 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 Status: Acute (8) Hyponatremia: Code(s): E87.1 - Hypo-osmolality and hyponatremia Status: Acute Assessment and Plan: stable but low (9) Acute kidney failure: Qualifiers: Acute renal failure type: unspecified Qualified Code(s): N17.9 - Acute kidney failure, unspecified Code(s): N17.9 - Acute kidney failure, unspecified Status: Resolved Assessment and Plan: creatinine 1.5, monitor iv albumin Subjective Date/time seen: 08/29/20 15:24 Interval history: no more bleeding but RN reports that more lethargic today Review of Systems Review of Systems: All systems reviewed & are unremarkable except as noted in HPI and below Exam Const: General: no acute distress and ill appearing chronically Orientation/consciousness: lethargic Other: awake but slow to respond HENMT: General nose exam: Normal nares present Other: hoarse Eyes: Pupils: Equal, round and reactive pupils present Neck: Neck: no JVD Resp: Auscultation: clear to auscultation bilaterally Cardio: Rate: regular rate GI: GI Palp: Yes Soft to palpation, No Tenderness to palpation present (GI) and No Guarding due to palpation present (GI) Percussion: Yes Fluid wave present (improved after paracentesis) Auscultation: normal bowel sounds Urinary Catheter: Urinary Catheter: patent and draining and urine dark Skin: General skin exam: no erythema Neuro: Motor exam (neuro): 5/5 motor strength present throughout Extrem: General: normal to inspection Objective Data Vital Signs Vital Signs: Vital Signs - 24 hr 08/28/20 16:00 08/28/20 18:00 08/28/20 20:00 Temperature 97 F L 97.8 F Pulse Rate 80 84 84 Respiratory Rate 22 H 18 Blood Pressure 102/48 L 101/39 L Pulse Oximetry 95 96 08/28/20 22:00 08/28/20 23:39 08/29/20 00:00 Temperature 97.7 F Pulse Rate 80 83 81 Respiratory Rate 20 Blood Pressure 127/39 L Pulse Oximetry 98 08/29/20 02:00 08/29/20 04:00 08/29/20 06:00 Temperature 97.9 F Pulse Rate 81 79 79 Respiratory Rate 20 Blood Pressure 114/57 L Pulse Oximetry 97 08/29/20 08:00 08/29/20 08:59 08/29/20 10:00 Temperature 96.4 F L Pulse Rate 79 80 73 Respiratory Rate 20 Blood Pressure 102/31 L Pulse Oximetry 98 08/29/20 12:00 08/29/20 13:05 08/29/20 14:00 Temperature 96.2 F L Pulse Rate 75 76 78 Respiratory Rate 22 H Blood Pressure 112/40 L Pulse Oximetry 100 Intake/Output Intake/Output: Intake & Output 08/26/2008/18
[2020-08-29 16:57] LABS: Glucose Point of Care 192 (65-105)
[2020-08-29] MEDS: LACTULOSE 20 GM/30 ML UDC PO (16:59)
--- NOTE | 2020-08-29 17:51 | PC.NURSE ---
This patient, Taryn Estevez, was transferred to [facility] on 08/29/20 at 1748. Personal belongings sent with patient. Report given to Taryn. Appropriate documentation sent with patient.
--- NOTE | 2020-08-29 18:40 | PC.NURSE ---
Patient arrived around 1740 from room 204-1 to room 221-1 with all belongings. Patient oriented to room, call light, and television with understanding verbalized. Bed rails x 2, call light within reach, IV fluids running, and patient resting comfortably.
--- NOTE | 2020-08-29 18:47 | PC.NURSE ---
Bed alarm is on.
[2020-08-29] MEDS: SODIUM CHLORIDE 0.9% IV 1,000 ML 50 ML IV CONT (20:17)
[2020-08-29 21:11] LABS: Glucose Point of Care 152 (65-105)
[2020-08-29 22:24] LABS: Base Excess ABG -3.5 mEq/l (+/-2.0); Carboxyhemoglobin 0.3 % THb (0-2.0); Fractional Inspired Oxygen 21 %; HCO3 ABG 19.8 mEq/l (22.0-26.0); Methemoglobin ABG 0.3 %THb (0-1.5); Oxygen Content ABG 9.2 %vol (16.0-22.0); Oxygen Saturation ABG 98.6 % (95.0-100.0); Oxyhemoglobin 96.7 % THb (90.0-100.0); PCO2 ABG 27.7 mmHg (35.0-45.0); PO2 ABG 117.6 mmHg (80.0-100.0); Reduced Hemoglobin 2.7 %THb (0-5.0); pH ABG 7.471 (7.350-7.450)
[2020-08-29 22:27] LABS: Device ROOM AIR; Modified Allen's Test Pass; Site Drawn RIGHT RADIAL; Total Hemoglobin 6.6 g/dL (12.0-18.0)
[2020-08-29 23:21] LABS: Hematocrit 18.4 % (37.0-47.0); Hemoglobin 6.1 g/dL (12.0-15.0)
[2020-08-29 23:38] LABS: Ammonia 34 umol/L (9-30)
[2020-08-30] VITALS (17 sets, daily range): BP systolic 88–132; BP diastolic 40–68; PULSE 65–73; RESP 16–20; TEMP 35.8–36.4; O2SAT 96–100
[2020-08-30] MEDS: SODIUM CHLORIDE 0.9% IV 250 ML 30 ML IV CONT (03:00)
[2020-08-30 07:30] LABS: Glucose Point of Care 154 (65-105)
[2020-08-30 09:03] LABS: Alanine Aminotransferase 22 U/L (4-35); Albumin Level 2.6 g/dL (3.5-5.1); Alkaline Phosphatase 67 U/L (38-126); Anion Gap 6 mmol/L (8-16); Aspartate Amino Transferase 54 U/L (14-36); Bilirubin,Total 2.4 mg/dL (0.2-1.3); Blood Urea Nitrogen 71 mg/dL (7-17); Calcium 7.8 mg/dL (8.4-10.2); Carbon Dioxide 21 mmol/L (22-30); Chloride 101 mmol/L (98-107); Estimated CRCL calculation 34 ml/min; Estimated Glomerular Filt Rate 40; Glucose 151 mg/dL (65-105); Potassium 4.2 mmol/L (3.4-5.0); Sodium 128 mmol/L (137-145)
[2020-08-30 09:06] LABS: INR 1.5; Prothrombin Time 18.5 Seconds (11.1-14.7)
[2020-08-30] MEDS: TUBING, BLOOD PLUM PUMP TUBING 1 EACH XX (09:06)
[2020-08-30 11:39] LABS: Glucose Point of Care 173 (65-105)
--- NOTE | 2020-08-30 13:15 | PM.IMPN ---
Progress Note: A&P Assessment and Plan (1) Acute upper gastrointestinal bleeding: Code(s): K92.2 - Gastrointestinal hemorrhage, unspecified Status: Acute Assessment and Plan: EGD shows gastritis, duodenitis esophagitis GI seeing pt hb keeps dropping pt receiving blood today, pt had ct head yesterday- showing age related changes only, no acute changes (2) Acute kidney failure: Qualifiers: Acute renal failure type: unspecified Qualified Code(s): N17.9 - Acute kidney failure, unspecified Code(s): N17.9 - Acute kidney failure, unspecified Status: Resolved Assessment and Plan: Nephrology following (3) Hyponatremia: Code(s): E87.1 - Hypo-osmolality and hyponatremia Status: Acute Assessment and Plan: suspect secondary to cirrhosis with portal hypertension (4) PAF (paroxysmal atrial fibrillation): Code(s): I48.0 - Paroxysmal atrial fibrillation Status: Acute Assessment and Plan: No anticoagulation or antiplatelet therapy due to GI bleeding (5) Cirrhosis of liver: Qualifiers: Ascites presence: with ascites Hepatic cirrhosis type: unspecified hepatic cirrhosis Qualified Code(s): K74.60 - Unspecified cirrhosis of liver; R18.8 - Other ascites Code(s): K74.60 - Unspecified cirrhosis of liver Status: Chronic Assessment and Plan: Quit drinking about 18 months ago (6) Diabetes mellitus with insulin therapy: Code(s): E11.9 - Type 2 diabetes mellitus without complications; 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 Continue to monitor (8) Peptic ulcer disease: Code(s): K27.9 - Peptic ulcer, site unspecified, unspecified as acute or chronic, without hemorrhage or perforation Status: Acute Assessment and Plan: continue PPI (9) Erosive esophagitis: Code(s): K22.10 - Ulcer of esophagus without bleeding Status: Acute Assessment and Plan: PPI (10) Encephalopathy, hepatic: Code(s): K72.90 - Hepatic failure, unspecified without coma Status: Acute Assessment and Plan: Hepatic coma, decline in patient health, unresponsive to verbal commands only pain, code changed to DNR, hospice consulted, comfort care Subjective Date/time seen: 08/30/20 13:15 Interval history: Admitted 08/26 with hematemesis. Known cirrhosis with portal hypertension and ascites. Pt is unresponsive only to pain. Hb is low again needing blood Long discussion with Teddy her ,about her condition and decline. Pt can be made DNR and hospice can be consulted. Teddy will inform her sons. Review of Systems Review of Systems: All systems reviewed & are unremarkable except as noted in HPI and below Exam Narrative: Exam Narrative: Chronically ill lady, responsive only to pain, somnolent CHEST: Clear BS Normal effort. HEART: NL S1/S2, regular, no murmur ABDOMEN: BS+, soft, NT EXTREMITIES: No cyanosis, edema, or clubbing NEUROLOGIC: Hard to assess, unresponsive to verbal commands MUSCULOSKELETAL: unable to lift arms or legs Objective Data Vital Signs Vital Signs: Vital Signs - 24 hr 08/29/20 14:00 08/29/20 17:25 08/29/20 17:40 Temperature 36.2 C L 36.3 C L Pulse Rate 78 74 75 Respiratory Rate 20 16 Blood Pressure 117/40 L 122/48 L Pulse Oximetry 100 97 08/29/20 20:40 08/29/20 22:00 08/30/20 00:00 Temperature 36.1 C L 36.2 C L Pulse Rate 72 74 72 Respiratory Rate 16 20 16 Blood Pressure 110/40 L 90/40 L Pulse Oximetry 100 100 100 08/30/20 03:39 08/30/20 03:58 08/30/20 05:55 Temperature 36.2 C L 36.2 C L 36.2 C L Pulse Rate 73 73 70 Respiratory Rate 18 18 18 Blood Pressure 100/65
[2020-08-30 13:22] LABS: Hematocrit 26.5 % (37.0-47.0); Immature Platelet Fraction Pct 3.7 % (0.9-11.2); Mean Corpuscular Hemoglobin 29.6 pg (26-34); Mean Corpuscular Volume 87.2 fl (80-100); Mean Platelet Volume 9.9 fl (7.4-10.4); Platelet Count Result 61 k/mm3 (150-375); Red Blood Count 3.04 M/mm3 (4.2-5.4); Red Cell Distribution Width 19.3 % (11.5-14.5); White Blood Count 8.6 K/mm3 (4.5-10.0)
--- NOTE | 2020-08-30 13:32 | PC.NURSE ---
Patient has been virtually unresponsive, does not follow directions or speak, will moan if moved or hard sternal rub; and will open eyes for a moment. 2 units of blood given this morning with no change. NS running at [address] Long after blood infusion. Dr. Long saw patient and stated change in LOC as well as Dr. Bernal. Dr. Long had attempted to reach her with no success. I spoke with Teddy and then put through to Dr. Long. Dr. Long informed of her change in code status to DNR and that she will be entering hospice care. Dr. Salguero and Dr. Bernal aware.
--- NOTE | 2020-08-30 13:50 | P.PNNP_ITS ---
Progress Note: A&P Assessment and Plan (1) Hyponatremia: Code(s): E87.1 - Hypo-osmolality and hyponatremia Status: Acute Assessment and Plan: * significant improvement noted * suspect large volume paracentesis likely helped this issue * presumably due to volume overload and CRISTY/ARF * agree with fluid restriction * may need to consider diuretics if hemodynamics allow * follow trend of sodium * follow-up SPEP/UPEP, serum/urine osmolality, TSH and cortisol (2) Acute kidney failure: Qualifiers: Acute renal failure type: unspecified Qualified Code(s): N17.9 - Acute kidney failure, unspecified Code(s): N17.9 - Acute kidney failure, unspecified Status: Acute Assessment and Plan: * stable at this time * probably due to altered hemodynamics * follow blood pressure * follow trend of repeat labs Discussed with nursing and apparently family considering transitioning care to comfort care/hospice which seems appropriate given her declining status with her overall health. Will continue to follow. Subjective Date/time seen: 08/30/20 13:50 Confusion/lethargy persist -- ongoing issues with anemia and need for PRBC transfusion noted; no new events overnight or earlier this AM. Exam Narrative: Exam Narrative: General: ill appearing female - somewhat confused Heart: normal S1 and S2; no rub Lungs: decreased at bases Abdomen: soft, nontender, mild distension, positive bowel sounds Extremities: no cyanosis or clubbing; 1+edema Skin: warm and intact Objective Data Vital Signs Vital Signs: Vital Signs Vital Signs (72 hours) 08/30/20 08:00 08/30/20 08:44 08/30/20 09:00 Temperature 35.8 C L 36.1 C L 36.1 C L Pulse Rate 73 65 65 Respiratory Rate 20 20 20 Blood Pressure 128/62 130/52 L 130/52 L Pulse Oximetry 97 97 96 08/30/20 09:15 08/30/20 10:07 08/30/20 11:08 Temperature 35.9 C L 36.2 C L 36.1 C L Pulse Rate 65 67 66 Respiratory Rate 18 20 20 Blood Pressure 122/48 L 120/50 L 132/68 Pulse Oximetry 99 98 98 08/30/20 12:30 Temperature 36.1 C L Pulse Rate 68 Respiratory Rate 20 Blood Pressure 118/60 Pulse Oximetry 99 Intake/Output Intake/Output: Intake & Output 08/30/20 23:59 Intake Total 650 Output Total 925 Balance -275 Meds/Results Radiology Results: ITS Impressions Chest/Abdomen/Pelvis CT 08/26/20 20:50 IMPRESSION: 1. Cirrhosis of the liver. 2. Large volume of ascites. 3. Mild pulmonary edema. 4. Mild wall thickening of the distal esophagus, consistent with edema versus esophagitis. 5. 4.0 cm cystic mass of the right ovary, likely benign. Pelvis ultrasound is recommended in one year. Paracentesis Ultrasound 08/28/20 12:43 IMPRESSION: 1. Successful ultrasound-guided paracentesis yielding 5000 mL of juan manuel-colored fluid. Head CT 08/29/20 14:56 IMPRESSION: 1. No acute intracranial abnormality. 2. Age related findings. Labs Labs: Laboratory Tests 08/30/20 13:05 08/30/20 08:10
--- NOTE | 2020-08-30 14:07 | WPDGIPROGNO ---
Progress Note: A&P Assessment and Plan (1) Encephalopathy, hepatic: Code(s): K72.90 - Hepatic failure, unspecified without coma Status: Acute Assessment and Plan: more obtunded today, not eating I ordered lactulose enema but primary team talked to family and leaning towards comfort care now given grim prognosis because decompensated cirrhosis (2) Acute upper gastrointestinal bleeding: Code(s): K92.2 - Gastrointestinal hemorrhage, unspecified Status: Acute Assessment and Plan: egd yesterday with erosive esophagitis, found old clots, no varices hb dropped today and received more blood transfusion noted plans to move for hospice (3) Anemia due to acute blood loss: Code(s): D62 - Acute posthemorrhagic anemia Status: Acute (4) Erosive esophagitis: Code(s): K22.10 - Ulcer of esophagus without bleeding Status: Acute Assessment and Plan: on medical treatment (5) Cirrhosis of liver with ascites: Code(s): K74.60 - Unspecified cirrhosis of liver; R18.8 - Other ascites Status: Acute (6) Leukocytosis: Code(s): D72.829 - Elevated white blood cell count, unspecified Status: Acute (7) Diabetes mellitus with insulin therapy: Code(s): E11.9 - Type 2 diabetes mellitus without complications; 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 Status: Acute (8) Hyponatremia: Code(s): E87.1 - Hypo-osmolality and hyponatremia Status: Acute (9) Acute kidney failure: Qualifiers: Acute renal failure type: unspecified Qualified Code(s): N17.9 - Acute kidney failure, unspecified Code(s): N17.9 - Acute kidney failure, unspecified Status: Resolved Subjective Date/time seen: 08/30/20 14:07 Interval history: she is lethargic and not taking most of her meds, no report of obvious GIB but noted drop in hb and received blood transfusion Review of Systems Review of Systems: All systems reviewed & are unremarkable except as noted in HPI and below Exam Const: General: ill appearing chronically Orientation/consciousness: lethargic Other: slower to respond HENMT: General nose exam: Normal nares present Other: hoarse Eyes: Pupils: Equal, round and reactive pupils present Neck: Neck: no JVD Resp: Auscultation: clear to auscultation bilaterally Cardio: Rate: regular rate GI: GI Palp: Yes Soft to palpation, No Tenderness to palpation present (GI) and No Guarding due to palpation present (GI) Percussion: Yes Fluid wave present (improved after paracentesis) Auscultation: normal bowel sounds Urinary Catheter: Urinary Catheter: patent and draining and urine dark Skin: General skin exam: no erythema Neuro: Cognition (Neuro): abnormal cognition Extrem: General: normal to inspection Psych: Speech and movement: Slowed movement present (Neuro) Objective Data Vital Signs Vital Signs: Vital Signs - 24 hr 08/29/20 17:25 08/29/20 17:40 08/29/20 20:40 Temperature 97.2 F L 97.3 F L Pulse Rate 74 75 72 Respiratory Rate 20 16 16 Blood Pressure 117/40 L 122/48 L Pulse Oximetry 100 97 100 08/29/20 22:00 08/30/20 00:00 08/30/20 03:39 Temperature 97.0 F L 97.1 F L 97.1 F L Pulse Rate 74 72 73 Respiratory Rate 20 16 18 Blood Pressure 110/40 L 90/40 L 100/65 Pulse Oximetry 100 100 97 08/30/20 03:58 08/30/20 05:55 08/30/20 05:58 Temperature 97.1 F L 97.2 F L 97.1 F L Pulse Rate 73 70 72 Respiratory Rate 18 18 18 Blood Pressure 100/65 106/45 L 98/42 L Pulse Oximetry 97 98 98 08/30/20 06:00 08/30/20 06:58 08/30/20 07:15 Temperature 97.1 F L 97.5 F L 96.7 F L Pulse Rate 72 72 66 Respiratory Rate 18 18 18 Blood Pressure 88/44 L 88/44 L 109/41 L Pulse Oximetry 98 98 96 08/30/20 08:44 08/30/20 09:00 08/30/20 09:15 Temperature 96.9 F L 96.9 F L 96.7 F L Pulse Rate 65 65 65 Respiratory Rate 20 20 18 Blood Pressure 130/52 L 130/52 L 122/48 L Pulse Oximetry 97 96 99 08/30/20 10:07 08/30
[2020-08-30] MEDS: LORazepam INJ (*CRX) 2 MG/ML VIAL 0.5 MG IV PUSH (23:47)
[2020-08-31] VITALS: BP 121/43; PULSE 57; RESP 16; TEMP 36.2; O2SAT 95
[2020-08-31] MEDS: MORPHINE SULFATE (*CRX) 4 MG/ML INJ 1 MG IV PUSH ×2 (02:16→15:42)
[2020-08-31 08:00] VITALS: BP 123/45; PULSE 68; RESP 12; TEMP 36; O2SAT 93
[2020-08-31 08:38] VITALS: RESP 16; O2SAT 95
--- NOTE | 2020-08-31 14:16 | PCOTNOTE ---
Attempted to see patient for therapy at 12:40, but patient was sleeping and could not be roused. Second attempt at 14:10, patient still could not be roused. RN informed therapist that patient was on comfort care and would be going home on hospice.
--- NOTE | 2020-08-31 14:36 | PM.IMPN ---
Progress Note: A&P Assessment and Plan (1) Acute upper gastrointestinal bleeding: Code(s): K92.2 - Gastrointestinal hemorrhage, unspecified Status: Acute Assessment and Plan: EGD shows gastritis, duodenitis esophagitis GI seeing pt hb keeps dropping pt receiving blood today, pt had ct head yesterday- showing age related changes only, no acute changes ongoing decline, pt is comfort care (2) Acute kidney failure: Qualifiers: Acute renal failure type: unspecified Qualified Code(s): N17.9 - Acute kidney failure, unspecified Code(s): N17.9 - Acute kidney failure, unspecified Status: Resolved Assessment and Plan: Nephrology following ongoing decline, pt is comfort care (3) Hyponatremia: Code(s): E87.1 - Hypo-osmolality and hyponatremia Status: Acute Assessment and Plan: suspect secondary to cirrhosis with portal hypertension ongoing decline, pt is comfort care (4) PAF (paroxysmal atrial fibrillation): Code(s): I48.0 - Paroxysmal atrial fibrillation Status: Acute Assessment and Plan: No anticoagulation or antiplatelet therapy due to GI bleeding ongoing decline, pt is comfort care (5) Cirrhosis of liver: Qualifiers: Ascites presence: with ascites Hepatic cirrhosis type: unspecified hepatic cirrhosis Qualified Code(s): K74.60 - Unspecified cirrhosis of liver; R18.8 - Other ascites Code(s): K74.60 - Unspecified cirrhosis of liver Status: Chronic Assessment and Plan: Quit drinking about 18 months ago ongoing decline, pt is comfort care (6) Diabetes mellitus with insulin therapy: Code(s): E11.9 - Type 2 diabetes mellitus without complications; 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 Status: Acute Assessment and Plan: ongoing decline, pt is comfort care (7) Anemia due to acute blood loss: Code(s): D62 - Acute posthemorrhagic anemia Status: Acute Assessment and Plan: comfort care (8) Peptic ulcer disease: Code(s): K27.9 - Peptic ulcer, site unspecified, unspecified as acute or chronic, without hemorrhage or perforation Status: Acute Assessment and Plan: comfort care (9) Erosive esophagitis: Code(s): K22.10 - Ulcer of esophagus without bleeding Status: Acute Assessment and Plan: comfort care (10) Encephalopathy, hepatic: Code(s): K72.90 - Hepatic failure, unspecified without coma Status: Acute Assessment and Plan: Hepatic coma, decline in patient health, unresponsive to verbal commands only pain, code changed to DNR, comfort care, pt will be discharged to hospice at home tomorrow Subjective Date/time seen: 08/31/20 14:36 Interval history: Admitted 08/26 with hematemesis. Known cirrhosis with portal hypertension and ascites. Pt is unresponsive only to pain. ongoing decline. Discussed with and son at bedside. Pt will be going home anna with hospice, continue comfort care in the hospital. Review of Systems Review of Systems: All systems reviewed & are unremarkable except as noted in HPI and below Exam Narrative: Exam Narrative: Chronically ill lady, responsive only to pain, somnolent CHEST: Clear BS Normal effort. HEART: NL S1/S2, regular, no murmur ABDOMEN: BS+, soft, NT EXTREMITIES: No cyanosis, edema, or clubbing NEUROLOGIC: Hard to assess, unresponsive MUSCULOSKELETAL: unable to lift arms or legs or follow commands Objective Data Vital Signs Vital Signs: Vital Signs - 24 hr 08/30/20 15:52 08/30/20 20:00 08/31/20 00:00 Temperature 35.8 C L 36.2 C L Pulse Rate 73 73 57 L Respiratory Rate 18 18 16 Blood Pressure 128/62 121/43 L Pulse Oximetry 97 97 95 08/31/20 08:00 08/31/20 08:38 Temperature 36.0 C L Pulse Rate 68 Respiratory Rate 12 16 Blood Pressure 123/45 L Pulse Oximetry 93 95 Intake/Output Intake/Output: Intake & Output
[2020-08-31] MEDS: LORazepam INJ (*CRX) 2 MG/ML VIAL 0.5 MG IV PUSH (15:47)
[2020-08-31 15:55] VITALS: BP 110/38; PULSE 70; RESP 12; TEMP 36.1; O2SAT 93
[2020-08-31 19:50] VITALS: PULSE 70; RESP 12; O2SAT 93
[2020-08-31 23:45] VITALS: BP 112/57; PULSE 73; RESP 18; TEMP 36; O2SAT 94
[2020-09-01] MEDS: MORPHINE SULFATE (*CRX) 4 MG/ML INJ 1 MG IV PUSH ×3 (00:17→15:35)
[2020-09-01 08:00] VITALS: BP 101/32; PULSE 65; RESP 18; TEMP 35.8; O2SAT 97
--- NOTE | 2020-09-01 10:57 | PM.DS ---
DS: Admitting Diagnosis Admitting Diagnosis Admitting Diagnosis: Vomiting Blood DS: Discharge Diagnosis Discharge Diagnosis (1) Acute upper gastrointestinal bleeding: Code(s): K92.2 - Gastrointestinal hemorrhage, unspecified Status: Acute Assessment and Plan: EGD shows gastritis, duodenitis esophagitis pt hb keeping dropping pt had blood transfusion and EGD seen by GI poor prognosis is futile hepatic coma with liver cirrhosis, portal hypertension and Gi bleeding ongoing decline, pt is comfort care (2) Acute kidney failure: Qualifiers: Acute renal failure type: unspecified Qualified Code(s): N17.9 - Acute kidney failure, unspecified Code(s): N17.9 - Acute kidney failure, unspecified Status: Resolved Assessment and Plan: ongoing decline, pt is comfort care (3) Hyponatremia: Code(s): E87.1 - Hypo-osmolality and hyponatremia Status: Acute Assessment and Plan: suspect secondary to cirrhosis with portal hypertension ongoing decline, pt is comfort care (4) PAF (paroxysmal atrial fibrillation): Code(s): I48.0 - Paroxysmal atrial fibrillation Status: Acute Assessment and Plan: No anticoagulation or antiplatelet therapy due to GI bleeding ongoing decline, pt is comfort care (5) Cirrhosis of liver: Qualifiers: Ascites presence: with ascites Hepatic cirrhosis type: unspecified hepatic cirrhosis Qualified Code(s): K74.60 - Unspecified cirrhosis of liver; R18.8 - Other ascites Code(s): K74.60 - Unspecified cirrhosis of liver Status: Chronic Assessment and Plan: history of liver cirrhosis and recurrent ascites now GI bleed ongoing decline, pt is comfort care (6) Diabetes mellitus with insulin therapy: Code(s): E11.9 - Type 2 diabetes mellitus without complications; 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 Status: Acute Assessment and Plan: ongoing decline, pt is comfort care (7) Anemia due to acute blood loss: Code(s): D62 - Acute posthemorrhagic anemia Status: Acute Assessment and Plan: comfort care (8) Peptic ulcer disease: Code(s): K27.9 - Peptic ulcer, site unspecified, unspecified as acute or chronic, without hemorrhage or perforation Status: Acute Assessment and Plan: comfort care (9) Erosive esophagitis: Code(s): K22.10 - Ulcer of esophagus without bleeding Status: Acute Assessment and Plan: comfort care (10) Encephalopathy, hepatic: Code(s): K72.90 - Hepatic failure, unspecified without coma Status: Acute Assessment and Plan: Hepatic coma, decline in patient health, unresponsive to verbal commands only pain, code changed to DNR, comfort care, pt will be discharged to hospice at home tomorrow DS: Summary Hospital Course Hospital Course: Interval history: Admitted 08/26 with hematemesis. Known cirrhosis with portal hypertension and ascites. Pt is unresponsive only to pain. ongoing decline. Discussed with and son at bedside. Pt will be going home with hospice. Time Spent with Patient Time attestation: Total time spent providing and/or coordinating discharge services:40 minutes on day of dischrage Exam Narrative: Exam Narrative: Chronically ill lady, responsive only to pain, somnolent, responsive to pain only CHEST: Clear BS Normal effort. HEART: NL S1/S2, regular, no murmur ABDOMEN: BS+, soft, NT EXTREMITIES: No cyanosis, edema, or clubbing NEUROLOGIC: Hard to assess, unresponsive MUSCULOSKELETAL: unable to lift arms or legs or follow commands DS: Data Data Completed and Pending Labs on day of discharge: Preliminary micro results at discharge 08/28/20 12:03 Anaerobic Culture - Preliminary Ascites Fluid Aerobic Culture - Preliminary Discharge Plan Discharge Attending physician on discharge: Janette Long Consulting providers: Issac
--- NOTE | 2020-09-01 12:16 | PCDIET ---
Nutrition Follow-Up Complete: Nutrition Diagnosis: Inadequate oral intake related to GI bleeding as evidenced by NPO diet. Nutrition Goal: Patient to meet estimated nutritional needs Goal not met. Patient with minimal intake on full liquid diet. Plan for discharge with hospice today. Last recorded weight is 76.8 kg which is decreased from last review. Bowel Motility: No recent BM reported. Labs Reviewed: Hgb (9.0), Hct (26.5), Glu (151), BUN (71), Cr (1.3), Na (128), Alb (2.6), Maksim Ca (8.92) Meds Noted: Morphine Additional Notes: No documented skin breakdown. Will continue to monitor with same goal, should plan of care change. Nutrition Monitoring and Evaluation: Follow up in 3 days.
[2020-09-01 16:00] VITALS: BP 114/42; PULSE 53; RESP 14; TEMP 35.4; O2SAT 100
[2020-09-01] MEDS: LORazepam INJ (*CRX) 2 MG/ML VIAL 0.5 MG IV PUSH (16:39)
== END 2020-09-01 19:45 | disposition hospice, home (50) | DRG 378 ==
LOC: ANHED 22:10 → ANHIMU 08-27 01:39 → ANHTRC 09-01 10:57 → ANHIMU 09-05 15:53 → ANHTRC 09-05 15:53
PROVIDERS: Internal Medicine; Internal Medicine Gastroenterology; Physician Assistant; Admitting Provider Internal Medicine; Emergency Provider Emergency Medicine; PCP Family Medicine; Visit Provider Family Medicine
PROC: 0DP08DZ Removal of Intraluminal Device from Upper Intestinal Tract, Via Natural or Artificial Opening Endoscopic (ICD-10-PCS; CPT 43247; principal; 2020-08-28 13:15)
DX: K92.2 Gastrointestinal hemorrhage, unspecified (principal); D62 Acute posthemorrhagic anemia; E87.1 Hypo-osmolality and hyponatremia; N17.9 Acute kidney failure, unspecified; R18.8 Other ascites; K76.6 Portal hypertension; E11.42 Type 2 diabetes mellitus with diabetic polyneuropathy; F10.21 Alcohol dependence, in remission; F17.210 Nicotine dependence, cigarettes, uncomplicated; K74.69 Other cirrhosis of liver; I48.0 Paroxysmal atrial fibrillation; K29.70 Gastritis, unspecified, without bleeding; K44.9 Diaphragmatic hernia without obstruction or gangrene; K21.00 Gastro-esophageal reflux disease with esophagitis, without bleeding; K29.80 Duodenitis without bleeding; K27.9 Peptic ulcer, site unspecified, unspecified as acute or chronic, without hemorrhage or perforation; K72.90 Hepatic failure, unspecified without coma; Z66 Do not resuscitate
CPT/HCPCS: 36415; 36430; 36600; 49083; 70450; 71250; 74176; 80048; 80053; 81003; 82140; 82375; 82533; 82570; 82805; 83050; 84300; 84443; 84540; 85014; 85018; 85025; 85027; 85055; 85610; 85730; 86850; 86900; 86901; 86923; 87070; 87075; 87205; 89051; 93005; 96361; 96374; 96375; 97165; 99285; A9270; C1751; C9113; J0696; J2060; J2270; J2354; J2405; J2704; J7030; J7040; J7050; J7120; J7131; P9016; P9047